=== PATIENT | female | born 1940 | race Caucasian/White ===

== ENCOUNTER 2023-06-18 17:59 | Inpatient (IN) | payer OTHER, SELFPAY ==
[2023-06-18 14:39] VITALS: BP 136/59
[2023-06-18 15:06] LABS: % Basophils 0.4 % (0-2); % Immature Granulocytes 0.4 % (0-0.5); % Lymphocytes 25.7 % (20.5-51.1); % Monocytes 13.3 % (1.7-9.3); % Neutrophils 60.2 % (42.2-75.2); Absolute Lymphocytes 2.1 10^3/uL (1.2-3.4); Absolute Monocytes 1.1 10^3/uL (0.1-0.6); Absolute Neutrophils 4.8 10^3/uL (1.4-6.5); Hematocrit 34.3 % (37.0-47.0); Hemoglobin 11.3 g/dL (12.0-16.0); Mean Corp Hgb Conc. 32.9 g/dL (33.0-37.0); Mean Corpuscular Hgb 27.6 pg (27.0-31.0); Mean Corpuscular Volume 83.9 fL (81.0-99.0); Mean Platelet Volume 10.2 fL (7.4-10.4); Nucleated Red Blood Cells % 0 %; Platelet Count 203 10^3/uL (130-400); Red Blood Cell Count 4.09 10^6/uL (4.20-5.40); Red Cell Dist. Width 15.5 % (11.5-14.5)
[2023-06-18 15:22] LABS: ALT (SGPT) 20 U/L (0-35); AST (SGOT) 25 U/L (14-36); Albumin 3.9 g/dl (3.5-5.0); Alkaline Phosphatase 61 U/L (38-126); Blood Urea Nitrogen 21 mg/dl (7-17); COVID-19 Antigen Negative (Negative); Carbon Dioxide 28 mmol/L (22-30); Chloride 102 mmol/L (98-107); Glucose 110 mg/dl (70-99); Potassium 3.9 mmol/L (3.5-5.1); Sodium 137 mmol/L (135-145); Total Bilirubin 0.6 mg/dl (0.2-1.3); Total Protein 6.4 g/dl (6.3-8.2)
[2023-06-18 15:36] LABS: Lactic Acid 1.5 mmol/L (0.7-2.0)
--- NOTE | 2023-06-18 17:06 | ED.GENMED ---
History of Present Illness
General
Chief Complaint: Weakness
Source: family and prison records
Time Seen by Provider: 06/18/23 16:52
Nursing documentation reviewed up to this point in time: agreed with
Travel History
Have you had any contact with someone who has COVID-19?: No
Do you have any symptoms of coronavirus? Fever > 100 degrees, chills, cough, shortness of breath, sore throat, loss of taste or smell, muscle aches, or headache?: No
History of Present Illness
History of Present Illness:
Patient to ED for eval of weakness, poor appetite, cough. According to son symptoms started yesterday. Not eating or drinking. Sent to ED for eval. +fever, no chills. No n/v/d.
Past History
Past History
ED Past Medical History: Arrthythmia (afib), CHF, HTN, Hypercholesterolemia, NIDDM, Hypothyroidism and Psychiatric (alzheimers)
ED Past Surgical History: Cardiac (CABG, Stents X 6,) and Gynecological (Hysterectomy)
Social History
Tobacco: Former smoker
Alcohol: Occasional
Personal:
Living: with family
Review of Systems
Review of Systems
Allergies reviewed?: Yes
All Other Systems: ROS reviewed and negative except as documented in HPI and ROS
Constitutional: Reports fever and fatigue
EENT: Reports runny nose
Respiratory: Reports cough
Cardiac: Reports no symptoms
ABD/GI: Reports anorexia
: Reports no symptoms
Musculoskeletal: Reports no symptoms
Neurological: Reports weakness
Psychiatric: Reports no symptoms
Phy Exam
General Physical Exam
General Presentation: mild distress
General age: appears stated age
General Skin: dry
General Habitus: elderly and frail
General Hydration: dry mucous membranes
Cardiovascular Exam
Cardiovascular Exam: regular rate/rhythm and no edema
Pulmonary Exam
Pulmonary Exam: no respiratory distress and chest non tender
Breath Sounds: Rhonchi: right lower
Gastrointestinal Exam
Gastrointestinal Exam: normal bowel sounds, non tender, soft, no organomegaly and no cva tenderness
Musculoskeletal Exam
Musculoskeletal Exam: full ROM and neuro vasc intact
Skin Exam
Skin Exam: normal color, warm/dry and no rash
Psychiatric Exam
Psychiatric Exam: normal mood/affect
Course
Orders/Labs/Results
Orders:
Orders
06/18/23 14:52
COVID-19 Antigen Urgent
Source: Nasal Swab
Complete Blood Count/With Diff Urgent
Comprehensive Metabolic Panel Urgent
Digoxin Urgent
Lactic Acid Q4H
Comment: ON ICE, CANCEL 2ND ORDER IF FIRST LACTIC ACID LEVEL <2
Blood Culture Q30M
ALANNA Source: Blood/Venous
Specimen Description:
Comment: FROM 2 SEPARATE SITES
INF RAPID [Influenza A+B Rapid Molecular] Urgent
ALANNA Source: Nasal Swab
Specimen Description:
06/18/23 17:03
0.9% Sodium Chloride 500 ml [Nss] 500 ml IV BOLUS
06/18/23 17:04
CR Chest - 2 Views Urgent
Comment:
Reason For Exam: weakness, cough
06/18/23 17:42
Admit/Transfer Patient As Directed
Co-Sign Provider:
Level of Care: Inpatient admission
Assign to:: Telemetry
Physician / Group: dion bullard
Diagnosis: influenza
Reason for Telemetry: Arrhythmia
Date to Stop Telemetry: 06/21/23
Time to Stop Telemetry: 11:00
Reason for Hospitalization: influenza
Expected length of stay greater than two midnights?: Yes
ELOS- Estimated Length of Stay in days: 3
I certify the patient meets the requirements for IP care: Yes
EKG [Electrocardiogram (*1)] Stat
Reason for Study: Atrial Fibrillation
06/18/23 17:44
Code Status As Directed
Resuscitation Status: Full Code
06/18/23 18:22
Blood Culture Q30M
ALANNA Source: Blood/Venous
Specimen Description:
Comment: FROM 2 SEPARATE SITES
06/18/23 19:13
0.9% Sodium Chloride 1000 ml [Nss] 1,000 ml IV 60 mls/hr
Atorvastatin [Lipitor] 40 mg PO QPM
Dextrose 50%-Water [Dextrose 50% Syringe] 12.5 grams IV [id number] PRN
Glucagon [GlucaGen] 1 mg IM PRN PRN
Rivaroxaban [Xarelto] 15 mg PO QPM
06/18/23 19:13
Activity As Directed
Activity Level: As Tolerated
Bedside Glucose Monitoring As Directed
Frequency: AC&HS
Comment: Change to q6h if pt on TPN, tube feeding or not eating
Vital Signs As Directed
Frequency: Per unit guidelines
Speech Therapy Eval & Treat Routine
06/18/23 19:21
Acetaminophen [Tylenol] 650 mg PO Q6HPRN PRN
06/18/23 19:26
Miconazole Nitrate [Desenex/Mitrazol/Zeasorb] 1 applic TOPICAL Q6H PRN
06/18/23 20:00
Magnesium Oxide 250 mg PO QPM
Miconazole Nitrate [Desenex/Mitrazol/Zeasorb] 1 applic TOPICAL BID
Multivitamin [Theragran] 1 tablet PO QPM
Oseltamivir Phosphate [Tamiflu] 30 mg PO DAILY
Sacubitril 24/Valsartan 26 [Entresto 24 mg/26 mg] 1 tab PO Q12
06/18/23 22:00
Mirtazapine [Remeron] 15 mg PO HS
06/19/23 Breakfast
2200 calorie (18 carb) Diabetic
At Your Request: Limited, Coagulating Drying Supervisor Required
Occupational Therapy Consult [Ot Eval And Treat] IN AM
Physical Therapy Consult [Pt Eval And Treat] IN AM
Activity Level: As Tolerated
06/19/23 07:00
Basic Metabolic Panel IN AM
Complete Blood Count/No Diff IN AM
Glycohemoglobin (HgbA1c) IN AM
Levothyroxine [Synthroid] 176 mcg PO SuSa@0700
06/19/23 07:30
Insulin Aspart Corrective Low [Novolog Flexpen-Low Resistance] See Protocol SC AC
06/19/23 08:00
Aripiprazole [Abilify] 4 mg PO DAILY
Cyanocobalamin [Vitamin B-12] 1,000 mcg PO DAILY
Docusate Sodium [Colace] 100 mg PO DAILY
Donepezil HCl [Aricept] 10 mg PO DAILY
ISOSORBIDE MONOnitrate ER [Imdur (Extended Release)] 30 mg PO DAILY
METFORMIN HCl [Glucophage] 500 mg PO BID@0800,1700
Metoprolol Xl [Toprol Xl] 100 mg PO DAILY
Sitagliptin Phosphate [Januvia] 50 mg PO DAILY
Vit C/Vit E/Lutein/Min/[place]-3 [Ocuvite Softgel] 1 cap PO DAILY
06/19/23 12:00
Digoxin [Lanoxin] 125 mcg PO NOON
06/20/23 06:00
Basic Metabolic Panel IN AM
Complete Blood Count/No Diff IN AM
06/21/23 06:00
Basic Metabolic Panel IN AM
Complete Blood Count/No Diff IN AM
06/21/23 08:00
Levothyroxine [Synthroid] 88 mcg PO MoTuWeThFr@0800
06/21/23 11:00
DC Protocol for Telemetry ONCE
06/22/23 06:00
Basic Metabolic Panel IN AM
Complete Blood Count/No Diff IN AM
06/23/23 06:00
Basic Metabolic Panel IN AM
Complete Blood Count/No Diff IN AM
Abnormal Lab Results
06/18/23
14:52
RBC 4.09 L 10^6/uL
(4.20-5.40)
Hgb 11.3 L g/dL
(12.0-16.0)
Hct 34.3 L %
(37.0-47.0)
MCHC 32.9 L g/dL
(33.0-37.0)
RDW 15.5 H %
(11.5-14.5)
Absolute Monos (auto) 1.1 H 10^3/uL
(0.1-0.6)
Monocytes % 13.3 H %
(1.7-9.3)
BUN 21 H mg/dl
(7-17)
Creatinine 1.6 H mg/dL
(0.6-1.0)
Glucose 110 H mg/dl
(70-99)
06/18/23 14:52
06/18/23 14:52
Vital Signs
Initial and Last Documented VS:
Initial Vital Signs
Temp Pulse Resp BP Pulse Ox
100.1 F 56 16 136/59 97
06/18/23 14:39 06/18/23 14:39 06/18/23 14:39 06/18/23 14:39 06/18/23 14:39
Last Documented Vital Signs
Temp Pulse Resp BP Pulse Ox
97.9 F 46 17 128/55 96
06/19/23 15:00 06/19/23 15:00 06/19/23 15:00 06/19/23 15:00 06/19/23 15:00
*Radiology
Radiology exam reviewed: radiology read reviewed
*Critical Care Note
Total Time (30-74mins, 75-104mins- exclusive of procedures): Not Applicable
ED Attending Note
-
Portions of this chart may have been created with voice recognition software.� Occasional wrong word or��sound alike� substitutions may have occurred due to the inherent limitations of voice recognition software.
Discharge Plan
Departure
Patient Disposition: Admit
Date of Disposition: 06/18/23
Time of Disposition: 17:12
Presentation/result/management discussed w/ accepting MD/DO: Hospitalist
Condition: Fair
Covid-19: Not Applicable
Discharge Problem:
Acute dehydration, Weakness, Influenza A
Interventions
Interventions:
*Risk Screen - Suicide Last Done: 06/18/23 20:15
*General Assessment Last Done: 06/18/23 14:39
*Neglect/Abuse Screening Last Done: 06/18/23 14:39
ED- Fall Risk Assessment Last Done: 06/18/23 18:13
*ED COVID-19 Vaccine History Last Done: 06/18/23 20:15
*Nursing Disposition Last Done: 06/18/23 19:25
ED- Cardiac Assessment Last Done: 06/18/23 18:13
ED- Neurological Assessment Last Done: 06/18/23 18:13
ED- Pulmonary Assessment Last Done: 06/18/23 18:13
Discharge Date and Time
Discharge Date/Time: 06/18/23 19:26
--- NOTE | 2023-06-18 17:14 | HPS.HSE ---
Addendum entered and electronically signed by Karina Ventura MD 06/19/23 11:21:
I saw and examined the patient.
The COAL TRIMMER MACHINE OPERATOR's note was reviewed and I agree with the note.
Comment:
HPI: 82-year-old with past medical history of A-fib, congestive heart failure, hypertension, hyperlipidemia, type 2 diabetes, hypothyroidism, Alzheimer's; presented from dementia unit with cough that started the day before.�
She also fell and hit her head.�She was noted to be hypotensive which prompted her to be brought to the the ER.�
Patient has severe dementia, hence unable to provide significant history.
She was tested positive for flu in ER and received NSS 500 cc.
A/P:
# Sepsis POA due to influenza
# Generalized weakness due to influenza
COVID-negative, CXR unrevealing
Check urine Cx, follow blood Cx
Flu A positive, start Tamiflu (renally dose x5 days)
PT OT eval
SPL eval
# Dehydration with Acute kidney injury, resolved
Continue to monitor SCr
# Alzheimer's disease
Continue FLOOR LAYER TILE Abilify, Aricept, Mirtazapine
# GERD
PPI continued
# Hyperlipidemia
Statin continued
# History of A-fib, likely permanent A fib
Cont FLOOR LAYER TILE Digoxin, level WNL
Cont FLOOR LAYER TILE Metoprolol
Cont FLOOR LAYER TILE Xarelto
# History of congestive heart failure, Not in acute exacerbation
# Essential hypertension
Cont to hold FLOOR LAYER TILE Lasix
Cont FLOOR LAYER TILE Imdur and Entresto
# Hypothyroidism
Levothyroxine continued
# Type 2 diabetes
Cont Januvia
DC further Metformin with CKD
Sliding scale
DVT prophylaxis-Xarelto
CODE STATUS-Full code
Original Note:
Family Physician
-
Family Physician: Jus Marie
Chief Complaint
-
cough
History of Present Illness
82-year-old with past medical history for A-fib, congestive heart failure, hypertension, hyperlipidemia, type 2 diabetes, hypothyroidism, Alzheimer's presented to us with cough, raspy voice since yesterday. Overnight she had a fall patient denied
hitting her head. This morning she had a temp of 99.5. Her cough was more wet. she had poor appetite and did not eat anything today. She was noted hypotensive which prompted her to come to the ER. Patient denies any headache dizzy or syncopal
episode. Patient denied chest pain, short of breath. Patient denied abdominal pain, nausea, vomiting, diarrhea. Patient denied dysuria hematuria.
Tested positive for flu in ER. Patient received normal saline 500 in ER. Admitting for further management
Medical History
Past Medical History
Past Medical History: Reports Other
Additional Past Medical History:
Atrial fibrillation
Congestive heart failure
Hypertension
Hyperlipidemia
Type 2 diabetes
Hypothyroidism
Alzheimer's disease
Past Surgical History: Reports Other
Additional Past Surgical History:
Coronary artery bypass graft
Cardiac stent
Hysterectomy
Social History
Tobacco: Former Smoker
Alcohol: None
Drug: None
Personal: Single
Living: Usp
Family History
Family History: Not pertinent
Allergies / Home Medications
Allergies reflects when Allergies were last updated in [facility].
Home Medications with original date entered in [facility]
Allergy/Medication List:
Allergies
Allergy/AdvReac Type Severity Reaction Status Date / Time
No Known Allergies Allergy Verified 06/18/23 14:39
Home Medications
acetaminophen 650 mg tablet,extended release 650 mg PO Q6H PRN mild pain 06/18/23
aripiprazole 2 mg tablet 4 mg PO DAILY 06/18/23
atorvastatin 40 mg tablet 40 mg PO QPM 06/18/23
cyanocobalamin (vitamin B-12) 1,000 mcg tablet 1,000 mcg PO DAILY 06/18/23
digoxin 125 mcg (0.125 mg) tablet 125 mcg PO DAILY 06/18/23
docusate sodium 100 mg capsule 100 mg PO DAILY 06/18/23
donepezil 10 mg tablet 10 mg PO DAILY 06/18/23
furosemide 20 mg tablet 20 mg PO DAILY 06/18/23
isosorbide mononitrate 30 mg tablet,extended release 24 hr 30 mg PO DAILY 06/18/23
levothyroxine 88 mcg tablet 88 mcg PO MOTUWETHFR 06/18/23
levothyroxine 88 mcg tablet 176 mcg PO SUSA 06/18/23
magnesium oxide 250 mg PO QPM 06/18/23
menthol 0.44 %-zinc oxide 20.6 % topical ointment (CalProtect) 1 applic topical BID 06/18/23
menthol 0.44 %-zinc oxide 20.6 % topical ointment (CalProtect) 1 applic topical QID PRN excoriation 06/18/23
metformin 500 mg tablet 500 mg PO BID@0800,1700 06/18/23
metoprolol succinate 100 mg tablet,extended release 24 hr 100 mg PO DAILY 06/18/23
mirtazapine 15 mg tablet 15 mg PO HS 06/18/23
multivitamin with minerals-folic 133.3 mcg-biotin 1,666.7 mcg capsule (Hair,Skin and Nails (folic acid-biotin)) 1 cap PO QPM 06/18/23
nystatin 100,000 unit/gram topical powder (Nystop) 1 applic topical BID 06/18/23
nystatin 100,000 unit/gram topical powder (Nystop) 1 applic topical Q6H PRN red rash 06/18/23
pantoprazole 40 mg tablet,delayed release 40 mg PO DAILY 06/18/23
rivaroxaban 15 mg tablet (Xarelto) 15 mg PO QPM 06/18/23
sacubitril 24 mg-valsartan 26 mg tablet (Entresto) 1 tab PO Q12H 06/18/23
sitagliptin phosphate 50 mg tablet (Januvia) 50 mg PO DAILY 06/18/23
vitamins A,C,I-rpjg-kthwoq 4,296 mcg-226 mg-90 mg capsule (PreserVision AREDS) 1 cap PO DAILY 06/18/23
Review of Systems
-
Constitutional: Reports Fever and Fatigue
EENT: Reports No Symptoms
Respiratory: Reports Cough
Cardiac: Reports No Symptoms
Abdomen/GI: Reports No Symptoms
: Reports No Symptoms
Musculoskeletal: Reports No Symptoms
Skin: Reports No Symptoms
Neurological: Reports No Symptoms
Endocrine: Reports No Symptoms
Hematologic/Lymphatic: Reports No Symptoms
Psych: Reports No Symptoms
Physical Exam
Vital Signs
Vital Signs
Temp Pulse Resp BP Pulse Ox
100.1 F 56 16 136/59 97
06/18/23 14:39 06/18/23 14:39 06/18/23 14:39 06/18/23 14:39 06/18/23 14:39
Physical Exam
General: Well Developed, Well Nourished and No Apparent Distress
HEENT: NormoCephalic, Moist mucous membranes and Atraumatic
Respiratory: Clear
Cardiac: S1/S2 and Regular Rhythm; No Murmur or Rub
GI: Soft, Non Tender, Non Distended and Normal Bowel Sounds; No Organomegaly
Rectal: Deferred by Provider
Musculoskeletal: No Clubbing, No Cyanosis and No Edema
Skin: No Rash
Neuro: AO x 3 and Nonfocal/grossly intact
Psych: Calm
Laboratory Results
-
06/18/23 14:52
06/18/23 14:52
Laboratory Results
Lactic Acid 1.5 mmol/L (0.7-2.0) 06/18/23 14:52
Total Bilirubin 0.6 mg/dl (0.2-1.3) 06/18/23 14:52
AST 25 U/L (14-36) 06/18/23 14:52
ALT 20 U/L (0-35) 06/18/23 14:52
Alkaline Phosphatase 61 U/L (38-126) 06/18/23 14:52
Data Reviewed
-
Lab Data: Labs Reviewed by me
Impression/Plan
-
# Generalized weakness likely from influenza
-COVID-negative
-chest x ray negative
-Tamiflu
-Physical therapy consulted
-Occupational Therapy consulted
-speech therapy consulted
# Dehydration from influenza
-Fluids continued
# Acute kidney injury likely from dehydration
-Creatinine 1.6
-Continue to monitor
# Alzheimer's disease
-Continue Abilify, Aricept
-Mirtazapine continued.
# GERD
-PPI continued
# Hyperlipidemia
-Statin continued
# History of A-fib
-Unclear if paroxysmal or permanent
-Will obtain EKG
-Digoxin continued
-Metoprolol continued
-Xarelto continued
-digoxin level in AM
# History of congestive heart failure
-Not in acute exacerbation
-Will hold Lasix
# Essential hypertension
-Blood pressure stable
-Imdur continued
-Entresto
# Hypothyroidism
-Levothyroxine continued
# Type 2 diabetes
-Metformin continued
-Sliding scale
-Carb controlled diet
-Januvia continued
# DVT prophylaxis
-Xarelto
# CODE STATUS
-Full code
[2023-06-18 18:09] VITALS: BMI 24.3
[2023-06-18] MEDS: NSS 500 IV (18:29)
[2023-06-18 19:33] VITALS: BMI 23.5
[2023-06-18 19:37] VITALS: BP 165/59
[2023-06-18 19:51] LABS: Digoxin 1.8 ng/ml (0.8-2.0)
[2023-06-18] MEDS: NSS 1000 IV (20:25)
[2023-06-18] MEDS: TAMIFLU 30 MG PO (20:25)
[2023-06-18] MEDS: REMERON 15 MG PO (20:26)
[2023-06-18] MEDS: DESENEX/MITRAZOL/ZEASORB 1 APPLIC TOPICAL (20:26)
[2023-06-18] MEDS: LIPITOR 40 MG PO (20:26)
[2023-06-18] MEDS: THERAGRAN 1 TABLET PO (20:26)
[2023-06-18] MEDS: XARELTO 15 MG PO (20:26)
[2023-06-18] MEDS: MAGNESIUM OXIDE 250 MG PO (20:26)
[2023-06-18] MEDS: ENTRESTO 24 MG/26 MG 1 TAB PO (20:29)
[2023-06-18 21:24] LABS: Glucose - Point of Care 119 mg/dl (70-99)
[2023-06-18 23:00] VITALS: BP 147/63
[2023-06-19] VITALS (8 sets, daily range): BP systolic 114–172; BP diastolic 49–75; PULSE 58; O2SAT 95; BMI 23.7
[2023-06-19] MEDS: SYNTHROID 176 MCG PO (06:27)
[2023-06-19 07:14] LABS: Hematocrit 33.1 % (37.0-47.0); Hemoglobin 10.8 g/dL (12.0-16.0); Mean Corp Hgb Conc. 32.6 g/dL (33.0-37.0); Mean Corpuscular Hgb 27.2 pg (27.0-31.0); Mean Corpuscular Volume 83.4 fL (81.0-99.0); Mean Platelet Volume 9.8 fL (7.4-10.4); Platelet Count 186 10^3/uL (130-400); Red Blood Cell Count 3.97 10^6/uL (4.20-5.40); Red Cell Dist. Width 15.5 % (11.5-14.5); White Blood Cell Count 10.9 10^3/uL (4.8-10.8)
[2023-06-19 07:39] LABS: Blood Urea Nitrogen 23 mg/dl (7-17); Calcium 8.6 mg/dl (8.4-10.2); Carbon Dioxide 24 mmol/L (22-30); Chloride 102 mmol/L (98-107); Estimated Creatinine Clearance 33 ml/min; Glucose 146 mg/dl (70-99); Potassium 3.7 mmol/L (3.5-5.1); Sodium 136 mmol/L (135-145); eGFR 45.19
[2023-06-19 07:56] LABS: Glucose - Point of Care 139 mg/dl (70-99)
[2023-06-19] MEDS: NOVOLOG FLEXPEN-LOW RESISTANCE SC ×2 (07:58→12:21)
[2023-06-19] MEDS: VITAMIN B-12 1000 MCG PO (08:34)
[2023-06-19] MEDS: ENTRESTO 24 MG/26 MG 1 TAB PO ×2 (08:34→19:59)
[2023-06-19] MEDS: ARICEPT 10 MG PO (08:34)
[2023-06-19] MEDS: JANUVIA 50 MG PO (08:34)
[2023-06-19] MEDS: TAMIFLU 30 MG PO (08:34)
[2023-06-19] MEDS: GLUCOPHAGE 500 MG PO (08:34)
[2023-06-19] MEDS: ABILIFY 4 MG PO (08:34)
[2023-06-19] MEDS: IMDUR (EXTENDED RELEASE) 30 MG PO (08:34)
[2023-06-19] MEDS: TOPROL XL 100 MG PO (08:34)
[2023-06-19] MEDS: COLACE 100 MG PO (08:34)
[2023-06-19] MEDS: OCUVITE SOFTGEL 1 CAP PO (08:34)
[2023-06-19] MEDS: DESENEX/MITRAZOL/ZEASORB 1 APPLIC TOPICAL ×2 (08:35→20:00)
[2023-06-19 08:44] LABS: Glycohemoglobin (HgbA1c) 6.9 % (4.0-5.6)
[2023-06-19] MEDS: TYLENOL 650 MG PO (10:33)
--- NOTE | 2023-06-19 11:05 | W.PN.HOSP.TC ---
Today's Communication/Plan
-
see A/P
Assessment / Plan
Assessment / Plan
HPI: 82-year-old with past medical history of A-fib, congestive heart failure, hypertension, hyperlipidemia, type 2 diabetes, hypothyroidism, Alzheimer's; presented from dementia unit with cough that started the day before.�
She also fell and hit her head.�She was noted to be hypotensive which prompted her to be brought to the the ER.�
Patient has severe dementia, hence unable to provide significant history.
She was tested positive for flu in ER and received NSS 500 cc.
A/P:
# Sepsis POA due to influenza
# Generalized weakness due to influenza
COVID-negative, CXR unrevealing
Check urine Cx, follow blood Cx
Flu A positive, start Tamiflu (renally dose x5 days)
PT OT eval
SPL recc pureed diet
# Dehydration with Acute kidney injury, resolved
s/p IVF
Creatinine 1.6 -> 1.2 (baseline SCr 1.3 from 03/2023)
Continue to monitor SCr
# Alzheimer's disease
Continue SHIPYARD PAINTER Abilify, Aricept, Mirtazapine
# GERD
PPI continued
# Hyperlipidemia
Statin continued
# History of A-fib, likely permanent A fib
Cont SHIPYARD PAINTER Digoxin, level WNL
Cont SHIPYARD PAINTER Metoprolol
Cont SHIPYARD PAINTER Xarelto
# History of congestive heart failure, Not in acute exacerbation
# Essential hypertension
Cont to hold SHIPYARD PAINTER Lasix
Blood pressure stable, Cont SHIPYARD PAINTER Imdur and Entresto
# Hypothyroidism
Levothyroxine continued
# Type 2 diabetes
Cont Januvia
DC further Metformin with CKD
Sliding scale
DVT prophylaxis-Xarelto
CODE STATUS-Full code
DW RN
DW son in person
Anticipated Discharge: Within 24 hours
Subjective/Interval History
-
Date of Service: June 19, 2023
Objective Data
-
Labs:
Laboratory Results
06/19/23
07:00
WBC 10.9 H
Hgb 10.8 L
Hct 33.1 L
Plt Count 186
Sodium 136
Potassium 3.7
Chloride 102
Carbon Dioxide 24
BUN 23 H
Creatinine 1.2 H
Glucose 146 H
Calcium 8.6
Vital Signs:
Vital Signs
Temp Pulse Resp BP Pulse Ox
38.1 C H 69 18 156/63 92
06/19/23 07:00 06/19/23 07:00 06/19/23 07:00 06/19/23 07:00 06/19/23 10:01
I&O
06/18/23 06/19/23 06/20/23
06:59 06:59 06:59
Intake Total 1080 / 1080
Balance 1080 / 1080
Review of Systems
-
Unable to obtain full review of systems at this time due to: Dementia
Physical Exam
-
General: Well Developed, Well Nourished, No Apparent Distress and Comfortable; Negative Respiratory Distress
HEENT: Normocephalic, Atraumatic, Nose Appears Normal and Ears Appear Normal; Negative Oxygen
Respiratory: Clear to Auscultation and Non Labored Respirations; Negative Accessory Resp Muscle Use
Cardiac: Regular Rhythm and S1/S2
GI: Soft, Nontender, Nondistended and Normal Bowel Sounds
Skin: Warm and Dry
Neuro: Awake
Psych: Calm and Apparent Dementia
Data Reviewed
-
Diagnostic Radiology: Image personally visualized and interpreted and Report Reviewed by me
Labs: Labs Reviewed by me
[2023-06-19 12:20] LABS: Urine Albumin Trace (Neg - Trace); Urine Bilirubin Negative (Negative); Urine Character Clear (Clear); Urine Color Yellow; Urine Glucose Negative (Negative); Urine Ketone Negative (Negative); Urine Leukocyte Negative (Negative); Urine Nitrite Negative (Negative); Urine Occult Blood Negative (Negative); Urine Specific Gravity 1.015 (<1.030); Urine Urobilinogen Negative (Neg - 1+)
[2023-06-19 12:22] LABS: Glucose - Point of Care 167 mg/dl (70-99)
[2023-06-19] MEDS: LANOXIN PO (12:41)
--- NOTE | 2023-06-19 12:57 | PTOTSP ---
SPEECH THERAPY SWALLOW EVALUATION:
Clinical signs of oropharyngeal dysphagia, likely chronic related to Alzheimer's, and acutely exacerbated by influenza diagnosis and related increased confusion/lethargy. Patient at high risk for aspiration and related complications due to
confusion/lethargy. Recommend IDDSI Level 4 Puree diet and thin liquids. Medications crushed in puree. Aspiration precautions includin:1 assist with meals; only feed when patient awake/alert; small single sips and bites; slow rate of intake;
upright positioning. Speech therapy to follow, assess diet tolerance and modify as appropriate, provide continued education regarding aspiration risks and precautions.
RECOMMEND:
1) IDDSI Level 4 Puree diet and thin liquids
2) Medications crushed in puree
3) Aspiration precautions includin:1 assist with meals; only feed when patient awake/alert; small single sips and bites; slow rate of intake; upright positioning
4) Speech therapy to follow, assess diet tolerance and modify as appropriate, provide continued education regarding aspiration risks and precautions
--- NOTE | 2023-06-19 13:19 | CM ---
CM attempted to reach patient via phone with out sha. CM will try again to review discharge planning needs.
[2023-06-19] MEDS: NSS 1000 IV (13:40)
[2023-06-19] MEDS: NOVOLOG FLEXPEN-LOW RESISTANCE 1 UNITS SC ×2 (13:46→17:08)
--- NOTE | 2023-06-19 16:02 | CM ---
Patient son spoke with CM via phone. Patient lives in the assisted living section of [facility] and she has a walker. Patient son indicated that patient was at [facility] in April and was walking 'gingerly' at discharge back to the
facility but did not get any PT/OT at that time. Patient now using her walker and family is uncertain about her needs at discharge. Son would like to talk to physician. CM reviewed recommendation from PT/OT at this time is for SNF level of care.
Patient son indicated that he would follow and look into options at SNF level if needed. CM will continue to follow for discharge planning needs.
Plan; SNF vs return to personal care with PT/OT
[2023-06-19 17:06] LABS: Glucose - Point of Care 170 mg/dl (70-99)
[2023-06-19] MEDS: XARELTO 15 MG PO (17:28)
[2023-06-19] MEDS: THERAGRAN 1 TABLET PO (17:28)
[2023-06-19] MEDS: LIPITOR 40 MG PO (17:28)
[2023-06-19] MEDS: MAGNESIUM OXIDE 250 MG PO (17:28)
[2023-06-19 21:12] LABS: Glucose - Point of Care 170 mg/dl (70-99)
[2023-06-19] MEDS: REMERON 15 MG PO (21:49)
[2023-06-20 03:00] VITALS: BP 183/79
[2023-06-20] MEDS: SYNTHROID 176 MCG PO (06:53)
[2023-06-20 07:00] VITALS: BP 172/71
[2023-06-20 07:10] LABS: Hematocrit 34.5 % (37.0-47.0); Hemoglobin 11.1 g/dL (12.0-16.0); Mean Corp Hgb Conc. 32.2 g/dL (33.0-37.0); Mean Corpuscular Hgb 27.6 pg (27.0-31.0); Mean Corpuscular Volume 85.8 fL (81.0-99.0); Mean Platelet Volume 10.6 fL (7.4-10.4); Platelet Count 180 10^3/uL (130-400); Red Blood Cell Count 4.02 10^6/uL (4.20-5.40); Red Cell Dist. Width 15.7 % (11.5-14.5); White Blood Cell Count 10.9 10^3/uL (4.8-10.8)
[2023-06-20] MEDS: TOPROL XL 100 MG PO (07:34)
[2023-06-20] MEDS: COLACE 100 MG PO (07:34)
[2023-06-20] MEDS: ARICEPT 10 MG PO (07:34)
[2023-06-20] MEDS: TAMIFLU 30 MG PO (07:34)
[2023-06-20] MEDS: JANUVIA 50 MG PO (07:34)
[2023-06-20] MEDS: VITAMIN B-12 1000 MCG PO (07:35)
[2023-06-20] MEDS: OCUVITE SOFTGEL 1 CAP PO (07:35)
[2023-06-20] MEDS: ABILIFY 4 MG PO (07:35)
[2023-06-20] MEDS: IMDUR (EXTENDED RELEASE) 30 MG PO (07:35)
[2023-06-20] MEDS: ENTRESTO 24 MG/26 MG 1 TAB PO ×2 (07:35→22:36)
[2023-06-20] MEDS: DESENEX/MITRAZOL/ZEASORB 1 APPLIC TOPICAL ×2 (07:35→22:39)
[2023-06-20 07:37] LABS: Blood Urea Nitrogen 27 mg/dl (7-17); Calcium 8.4 mg/dl (8.4-10.2); Carbon Dioxide 29 mmol/L (22-30); Chloride 103 mmol/L (98-107); Estimated Creatinine Clearance 33 ml/min; Glucose 138 mg/dl (70-99); Potassium 3.7 mmol/L (3.5-5.1); Sodium 135 mmol/L (135-145); eGFR 45.19
[2023-06-20 07:40] LABS: Glucose - Point of Care 136 mg/dl (70-99)
[2023-06-20] MEDS: NOVOLOG FLEXPEN-LOW RESISTANCE SC ×2 (07:40→17:14)
[2023-06-20 11:00] VITALS: BP 143/70
[2023-06-20 11:44] LABS: Glucose - Point of Care 179 mg/dl (70-99)
[2023-06-20] MEDS: LANOXIN PO (12:12)
--- NOTE | 2023-06-20 12:28 | W.PN.HOSP.TC ---
Today's Communication/Plan
-
see A/P
Assessment / Plan
Assessment / Plan
HPI: 82-year-old with past medical history of A-fib, congestive heart failure, hypertension, hyperlipidemia, type 2 diabetes, hypothyroidism, Alzheimer's; presented from dementia unit with cough that started the day before.�
She also fell and hit her head.�She was noted to be hypotensive which prompted her to be brought to the the ER.�
Patient has severe dementia, hence unable to provide significant history.
She was tested positive for flu in ER and received NSS 500 cc.
A/P:
# Sepsis POA due to influenza
# Generalized weakness due to influenza
COVID-negative, CXR unrevealing
UA clean, blood Cx neg
Flu A positive, started Tamiflu (renally dose x5 days)
PT OT recc SNF
SPL recc pureed diet
# Dehydration with Acute kidney injury, resolved
s/p IVF
Creatinine 1.6 -> 1.2 (baseline SCr 1.3 from 03/2023)
Continue to monitor SCr
# Alzheimer's disease
Continue ARTIFICIAL BREAST FABRICATOR Abilify, Aricept, Mirtazapine
# GERD
PPI continued
# Hyperlipidemia
Statin continued
# History of A-fib, likely permanent A fib
Cont ARTIFICIAL BREAST FABRICATOR Digoxin, level WNL
Cont ARTIFICIAL BREAST FABRICATOR Metoprolol
Cont ARTIFICIAL BREAST FABRICATOR Xarelto
# History of congestive heart failure, Not in acute exacerbation
# Essential hypertension
Cont to hold ARTIFICIAL BREAST FABRICATOR Lasix
Blood pressure stable, Cont ARTIFICIAL BREAST FABRICATOR Imdur and Entresto
# Hypothyroidism
Levothyroxine continued
# Type 2 diabetes
Cont Januvia
hold ARTIFICIAL BREAST FABRICATOR Metformin with CKD
Sliding scale
DVT prophylaxis-Xarelto
CODE STATUS-Full code
DW RN
DW son and DIL on the phone. Family have not decided on dispo plan yet (whether discharge back to SNF vs previous home setting at dementia unit)
Anticipated Discharge: Within 24 hours
Subjective/Interval History
-
Date of Service: June 20, 2023
Objective Data
-
Labs:
Laboratory Results
06/20/23
06:06
WBC 10.9 H
Hgb 11.1 L
Hct 34.5 L
Plt Count 180
Sodium 135
Potassium 3.7
Chloride 103
Carbon Dioxide 29
BUN 27 H
Creatinine 1.2 H
Glucose 138 H
Calcium 8.4
Vital Signs:
Vital Signs
Temp Pulse Resp BP Pulse Ox
37.2 C 48 18 143/70 93
06/20/23 11:00 06/20/23 12:12 06/20/23 11:00 06/20/23 11:00 06/20/23 11:00
I&O
06/19/23 06/20/23 06/21/23
06:59 06:59 06:59
Intake Total 1080 / 1080 1080 / 1080
Balance 1080 / 1080 1080 / 1080
Review of Systems
-
Unable to obtain full review of systems at this time due to: Dementia
Physical Exam
-
General: Well Developed, Well Nourished, No Apparent Distress and Comfortable; Negative Respiratory Distress
HEENT: Normocephalic, Atraumatic, Nose Appears Normal and Ears Appear Normal; Negative Oxygen
Respiratory: Clear to Auscultation and Non Labored Respirations; Negative Accessory Resp Muscle Use
Cardiac: Regular Rhythm and S1/S2
GI: Soft, Nontender, Nondistended and Normal Bowel Sounds
Skin: Warm and Dry
Neuro: Awake
Psych: Calm and Apparent Dementia
Data Reviewed
-
Diagnostic Radiology: Image personally visualized and interpreted and Report Reviewed by me
Labs: Labs Reviewed by me
--- NOTE | 2023-06-20 12:47 | CM ---
CM spoke with patient son, he identified the following as the families list of SNF options; 1.[facility], 2.[facility], 3.[facility]. Patient will need [employer] auth, Referrals sent to SNF options above as therapy is recommending SNF. CM will
continue to follow for discharge planning needs.
Plan: SNF; patient will need [employer] auth
[2023-06-20] MEDS: NOVOLOG FLEXPEN-LOW RESISTANCE 1 UNITS SC (13:01)
[2023-06-20 15:00] VITALS: BP 149/98
[2023-06-20 17:12] LABS: Glucose - Point of Care 112 mg/dl (70-99)
[2023-06-20] MEDS: MAGNESIUM OXIDE 250 MG PO (17:26)
[2023-06-20] MEDS: THERAGRAN 1 TABLET PO (17:27)
[2023-06-20] MEDS: LIPITOR 40 MG PO (17:27)
[2023-06-20] MEDS: XARELTO 15 MG PO (17:27)
[2023-06-20 19:33] VITALS: BP 166/72
[2023-06-20 21:40] LABS: Glucose - Point of Care 127 mg/dl (70-99)
[2023-06-20] MEDS: REMERON 15 MG PO (22:37)
[2023-06-20 23:25] VITALS: BP 158/62
[2023-06-21] VITALS (9 sets, daily range): BP systolic 143–184; BP diastolic 62–78; PULSE 59; O2SAT 94; BMI 23.9
[2023-06-21 06:42] LABS: Hematocrit 32.5 % (37.0-47.0); Hemoglobin 10.4 g/dL (12.0-16.0); Mean Corpuscular Hgb 27.2 pg (27.0-31.0); Mean Corpuscular Volume 84.9 fL (81.0-99.0); Mean Platelet Volume 10.7 fL (7.4-10.4); Platelet Count 170 10^3/uL (130-400); Red Blood Cell Count 3.83 10^6/uL (4.20-5.40); Red Cell Dist. Width 15.5 % (11.5-14.5); White Blood Cell Count 6.1 10^3/uL (4.8-10.8)
[2023-06-21 06:53] LABS: Blood Urea Nitrogen 24 mg/dl (7-17); Calcium 8.6 mg/dl (8.4-10.2); Carbon Dioxide 29 mmol/L (22-30); Chloride 101 mmol/L (98-107); Estimated Creatinine Clearance 35 ml/min; Glucose 133 mg/dl (70-99); Potassium 3.7 mmol/L (3.5-5.1); Sodium 135 mmol/L (135-145); eGFR 50.17
[2023-06-21] MEDS: TOPROL XL PO (08:00)
--- NOTE | 2023-06-21 08:00 | PTCARENOTE ---
Patient's HR 38, Toprol XL 100mg held this am due to bradycardia overnight and this am. Physician made aware.
[2023-06-21 08:33] LABS: Glucose - Point of Care 115 mg/dl (70-99)
[2023-06-21] MEDS: NOVOLOG FLEXPEN-LOW RESISTANCE SC ×2 (08:39→17:07)
[2023-06-21] MEDS: ENTRESTO 24 MG/26 MG 1 TAB PO ×2 (09:02→20:13)
[2023-06-21] MEDS: VITAMIN B-12 1000 MCG PO (09:02)
[2023-06-21] MEDS: ABILIFY 4 MG PO (09:02)
[2023-06-21] MEDS: OCUVITE SOFTGEL 1 CAP PO (09:02)
[2023-06-21] MEDS: JANUVIA 50 MG PO (09:02)
[2023-06-21] MEDS: IMDUR (EXTENDED RELEASE) 30 MG PO (09:02)
[2023-06-21] MEDS: ARICEPT 10 MG PO (09:02)
[2023-06-21] MEDS: TAMIFLU 30 MG PO ×2 (09:03→20:13)
[2023-06-21] MEDS: COLACE 100 MG PO (09:03)
[2023-06-21] MEDS: SYNTHROID 88 MCG PO (09:06)
[2023-06-21] MEDS: DESENEX/MITRAZOL/ZEASORB 1 APPLIC TOPICAL ×2 (09:06→20:13)
[2023-06-21 12:07] LABS: Glucose - Point of Care 160 mg/dl (70-99)
--- NOTE | 2023-06-21 13:10 | CM ---
Addendum entered by Munira Vargas 06/21/23 14:24:
Spoke with Mcihelle at [facility] - not in Care Port
Faxed clinicals to Michelle at [phone]
If accepted - will need auth
Original Note:
Chart reviewed.
Referrals sent to [facility], [facility] and [facility]
Arianne Carvalho and [facility] - out of network
No response from [facility] in care port
Called [facility] and with call back number to review chart/check bed availability
CM will follow
[2023-06-21] MEDS: LANOXIN 125 MCG PO (13:13)
[2023-06-21] MEDS: NOVOLOG FLEXPEN-LOW RESISTANCE 1 UNITS SC (13:14)
--- NOTE | 2023-06-21 14:00 | W.PN.HOSP.TC ---
Today's Communication/Plan
-
neuro consult for further recs
ct head
tamiflu
Assessment / Plan
Assessment / Plan
HPI: 82-year-old with past medical history of A-fib, congestive heart failure, hypertension, hyperlipidemia, type 2 diabetes, hypothyroidism, Alzheimer's; presented from dementia unit with cough that started the day before.�
She also fell and hit her head.�She was noted to be hypotensive which prompted her to be brought to the the ER.�
Patient has severe dementia, hence unable to provide significant history.
She was tested positive for flu in ER and received NSS 500 cc.
A/P:
# Sepsis POA due to influenza
# Generalized weakness due to influenza
COVID-negative, CXR unrevealing
UA clean, blood Cx neg
Flu A positive, started Tamiflu (renally dose x5 days)
PT OT recc SNF
SPL recc pureed diet
# Dehydration with Acute kidney injury, resolved
s/p IVF
Creatinine 1.6 -> 1.2 (baseline SCr 1.3 from 03/2023)
Continue to monitor SCr
# Alzheimer's disease
Continue MACHINE II ENGRAVER Abilify, Aricept, Mirtazapine
# Left visual field cut
#No left-sided peripheral vision
� Neurology consulted
� Repeat CT head
� Follow-up neurology for further recommendations including MRI
# GERD
PPI continued
# Hyperlipidemia
Statin continued
# History of A-fib, likely permanent A fib
Cont MACHINE II ENGRAVER Digoxin, level WNL
Cont MACHINE II ENGRAVER Metoprolol
Cont MACHINE II ENGRAVER Xarelto
# History of congestive heart failure, Not in acute exacerbation
# Essential hypertension
Cont to hold MACHINE II ENGRAVER Lasix, can resume tomorrow if stable
Blood pressure stable, Cont MACHINE II ENGRAVER Imdur and Entresto
# Hypothyroidism
Levothyroxine continued
# Type 2 diabetes
Cont Januvia
hold MACHINE II ENGRAVER Metformin with CKD
Sliding scale
DVT prophylaxis-Xarelto
CODE STATUS-Full code
DW RN
DW son and DIL on the phone. Family have not decided on dispo plan yet (whether discharge back to SNF vs previous home setting at dementia unit)
Total time spent on today's encounter was 55 minutes which included time spent in counseling the patient/family regarding diagnosis and treatment plan as listed above, goals of care, and symptom management. Case was discussed with nursing staff,
specialists, and care coordinators/case management. All labs and imaging personally reviewed by me. Remainder the time spent in detailed review of previous records, lab data, imaging, and other medical provider documentation.
Anticipated Discharge: Today
Subjective/Interval History
-
Date of Service: June 21, 2023
No acute vents overnight, worked with physical therapy and had shown some left inattention as well as left visual field cut. Perseveratively combed hair on the right side only, runs into obstacles on the left side. Has no peripheral vision on left
side
Objective Data
-
Labs:
Laboratory Results
06/21/23
05:51
WBC 6.1
Hgb 10.4 L
Hct 32.5 L
Plt Count 170
Sodium 135
Potassium 3.7
Chloride 101
Carbon Dioxide 29
BUN 24 H
Creatinine 1.1 H
Glucose 133 H
Calcium 8.6
Vital Signs:
Vital Signs
Temp Pulse Resp BP Pulse Ox
98.1 F 61 17 146/66 98
06/21/23 11:00 06/21/23 13:13 06/21/23 11:00 06/21/23 11:00 06/21/23 11:00
I&O
06/20/23 06/21/23 06/22/23
06:59 06:59 06:59
Intake Total 1080 / 1080 960 / 960
Balance 1080 / 1080 960 / 960
Review of Systems
-
Unable to obtain full review of systems at this time due to: Dementia
History Source: Patient
Data Reviewed
-
CT Scan: Image personally visualized and interpreted
Labs: Labs Reviewed by me
--- NOTE | 2023-06-21 15:45 | CON.NEURO ---
Consultation
Order
CC: fatigue
HPI: This is an 82-year-old woman who presented to [facility] on June 18, 2023 with hypotension and Flu A. Neurology consultation was requested for evaluation and management of left visual deficits.
Ms. Smart reports generalized weakness. She denied new visual, focal motor or sensory deficits.
VS: T max-38.1 C, BP max: 183/79
PDMP: no Rxed meds
Admission labs: Glucose�110, creatinine 1.6, normal lactic acid, ua, neg SARS-COv-2
CT head-atrophy, no acute infarcts
PMH: A-fib on Xarelto, CAD, HTN, DLP, CHF, hypothyroidism, advanced Alzheimer's disease, vit B12 deficiency
PSH: CABG, EDAWRD
SH: Former Smoker
FH: Not pertinent
All:NKDA
ROS: Positive for fatigue
HENT: Positive for hearing impairment
Eyes: Negative. Negative for photophobia, pain and visual disturbance.
Respiratory: Negative for cough, choking and shortness of breath.
Cardiovascular: Negative for chest pain, palpitations and leg swelling.
Gastrointestinal: Positive for poor appetite
Endocrine: Negative. Negative for cold intolerance.
Genitourinary: Negative for dysuria, flank pain and urgency.
Musculoskeletal: Negative for back pain, gait problem, neck pain and neck stiffness.
Skin: Negative for rash.
Allergic/Immunologic: Negative. Negative for immunocompromised state.
Neurological: Positive for chronic confusion
General: Well developed. In no acute distress.
Cardio: Regular rate and rhythm without murmur. Extremities are without cyanosis or edema.
Neuro:
Mental Status: Alert, oriented to name, '2023', ' en', . Impaired attention. Increased processing time. Attends to both sides.
Cranial Nerves: . Pupils are equally round and reactive to light. EOMs full. BTT B/L. No ptosis. No nystagmus. V1-V3 intact to light touch and pinprick bilaterally, symmetric. Face symmetric. Poor hearing AU. The palate elevated well. SCMs
and traps 5/5. Tongue midline. No dysarthria.
Motor: Normal bulk and tone. No pronator or arm drift. Strength 5/5 throughout. No clonus.
Reflexes: positive for grasp BL
Sensory: limited due to poor attention
Coordination: No dysmetria or tremor.
Gait: deferred
Assessment and Plan:
I. Transient clinical hemineglect. 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 Differential diagnosis included R MCA infarct/TIA
II. Multifactorial encephalopathy (neurodegenerative, metabolic, infectious)
III. Alzheimer's disease with behavioral manifestations
IV. A-Fib
-fall and aspiration precautions;
-Brain MRi wo chelsea
-Continue Xarelto
-Will follow
I personally reviewed all radiology and labs along with past medical records pertinent to current medical problems.
Thank you for allowing us to participate in the care of this patient. We will continue to follow. Please do not hesitate to contact us with any questions or concerns.
Subjective/Objective
Subjective Data
Date of Service: June 21, 2023
Objective Data
Vital Signs
Temp Pulse Resp BP Pulse Ox
36.7 C 61 17 146/66 98
06/21/23 11:00 06/21/23 13:13 06/21/23 11:00 06/21/23 11:00 06/21/23 11:00
Lab Results
06/21/23 05:51
06/21/23 05:51
Sodium 135 mmol/L (135-145) 06/21/23 05:51
Potassium 3.7 mmol/L (3.5-5.1) 06/21/23 05:51
BUN 24 mg/dl (7-17) H 06/21/23 05:51
Glucose 133 mg/dl (70-99) H 06/21/23 05:51
Calcium 8.6 mg/dl (8.4-10.2) 06/21/23 05:51
Patient Allergies
No Known Allergies Allergy (Verified 06/18/23 14:39)
Modified Mishel Score (MRS)
-
MRS Score:
Medications
-
Active Medications
Generic Name Dose Route Start Last Admin
Trade Name Freq PRN Reason Stop Dose Admin
Acetaminophen 650 mg 06/18/23 19:21 06/19/23 10:33
Acetaminophen 325 Mg Tablet PO 07/16/23 19:20 650 mg
Q6HPRN PRN Administration
mild pain
Aripiprazole 4 mg 06/19/23 08:00 06/21/23 09:02
Aripiprazole 2 Mg Tablet PO 07/17/23 07:59 4 mg
DAILY ORI Administration
Atorvastatin Calcium 40 mg 06/18/23 19:13 06/20/23 17:27
Atorvastatin (Lipitor) 40 Mg Tablet PO 07/16/23 19:12 40 mg
QPM ORI Administration
Cyanocobalamin 1,000 mcg 06/19/23 08:00 06/21/23 09:02
Cyanocobalamin 1,000 Mcg Tablet PO 07/17/23 07:59 1,000 mcg
DAILY ORI Administration
Dextrose 12.5 grams 06/18/23 19:13
Dextrose 50% (0.5 Grams/Ml) 50 Ml Syringe IV 07/16/23 19:12
[id number] PRN
hypoglycemia
Protocol
Digoxin 125 mcg 06/19/23 12:00 06/21/23 13:13
Digoxin 125 Mcg Tablet PO 07/17/23 11:59 125 mcg
NOON ORI Administration
Docusate Sodium 100 mg 06/19/23 08:00 06/21/23 09:03
Docusate Sodium 100 Mg Capsule PO 07/17/23 07:59 100 mg
DAILY ORI Administration
Donepezil HCl 10 mg 06/19/23 08:00 06/21/23 09:02
Donepezil Hcl 10 Mg Tablet PO 07/17/23 07:59 10 mg
DAILY ORI Administration
Glucagon 1 mg 06/18/23 19:13
Glucagon 1 Mg Vial IM 07/16/23 19:12
PRN PRN
hypoglycemia
Protocol
Insulin Aspart 0 units 06/19/23 07:30 06/21/23 13:14
Insulin Aspart Low Resistance 300 Units/3 Ml Pen.Injctr SC 07/17/23 07:29 1 units
AC ORI Administration
Protocol
Isosorbide Mononitrate 30 mg 06/19/23 08:00 06/21/23 09:02
Isosorbide Mononitrate 30 Mg Extended Release Tablet PO 07/17/23 07:59 30 mg
DAILY ORI Administration
Levothyroxine Sodium 88 mcg 06/21/23 08:00 06/21/23 09:06
Levothyroxine 88 Mcg Tablet PO 07/19/23 07:59 88 mcg
MoTuWeThFr@0800 ORI Administration
Levothyroxine Sodium 176 mcg 06/19/23 07:00 06/20/23 06:53
Levothyroxine 88 Mcg Tablet PO 07/17/23 06:59 176 mcg
SuSa@0700 ORI Administration
Magnesium Oxide 250 mg 06/18/23 20:00 06/20/23 17:26
Magnesium Oxide 500 Mg Tablet PO 07/16/23 19:59 250 mg
QPM ORI Administration
Metoprolol Succinate 50 mg 06/22/23 08:00
Metoprolol 50 Mg Extended Release Tablet PO 07/20/23 07:59
DAILY ORI
Miconazole Nitrate 1 applic 06/18/23 19:26
Miconazole Powder Bottle TOPICAL 07/16/23 19:25
Q6H PRN
red rash
Miconazole Nitrate 1 applic 06/18/23 20:00 06/21/23 09:06
Miconazole Powder Bottle TOPICAL 07/16/23 19:59 1 applic
BID ORI Administration
Mirtazapine 15 mg 06/18/23 22:00 06/20/23 22:37
Mirtazapine 15 Mg Regular Release Tablet PO 07/16/23 21:59 15 mg
HS ORI Administration
Multivitamins Therapeutic 1 tablet 06/18/23 20:00 06/20/23 17:27
Multivitamin Tablet PO 07/16/23 19:59 1 tablet
QPM ORI Administration
Oseltamivir Phosphate 30 mg 06/21/23 20:00
Oseltamivir (Tamiflu) 30 Mg Capsule PO 06/23/23 20:01
BID ORI
Rivaroxaban 15 mg 06/18/23 19:13 06/20/23 17:27
Rivaroxaban 15 Mg Tablet PO 07/16/23 19:12 15 mg
QPM ORI Administration
Sacubitril/Valsartan 1 tab 06/18/23 20:00 06/21/23 09:02
Sacubitril 24 Mg/Valsartan 26 Mg (Entresto) Tab PO 07/16/23 19:59 1 tab
Q12 ORI Administration
Sitagliptin Phosphate 50 mg 06/19/23 08:00 06/21/23 09:02
Sitagliptin (Januvia) 50 Mg Tablet PO 07/17/23 07:59 50 mg
DAILY ORI Administration
Sodium Chloride 0 flush 06/18/23 20:00
Sodium Chloride 0.9% (Flush) Syringe IV 07/16/23 19:59
PER PROTOCOL ORI
Vitamin C/Vitamin E 1 cap 06/19/23 08:00 06/21/23 09:02
Vit C/Vit E/Lutein/Min/Crescent-3 (Ocuvite) Capsule PO 07/17/23 07:59 1 cap
DAILY ORI Administration
Home Medications
Medication Instructions Recorded
acetaminophen 650 mg 650 mg PO Q6H PRN mild pain 06/18/23
tablet,extended release
aripiprazole 2 mg tablet 4 mg PO DAILY Mental Health/Anxiety 06/18/23
atorvastatin 40 mg tablet 40 mg PO QPM High Cholesterol 06/18/23
cyanocobalamin (vitamin B-12) 1,000 mcg PO DAILY Supplement 06/18/23
1,000 mcg tablet
digoxin 125 mcg (0.125 mg) tablet 125 mcg PO DAILY Heart Failure 06/18/23
docusate sodium 100 mg capsule 100 mg PO DAILY Constipation 06/18/23
donepezil 10 mg tablet 10 mg PO DAILY Neurological 06/18/23
Condition
furosemide 20 mg tablet 20 mg PO DAILY Fluid 06/18/23
Retention/Swelling
isosorbide mononitrate 30 mg 30 mg PO DAILY Blood Pressure 06/18/23
tablet,extended release 24 hr
levothyroxine 88 mcg tablet 88 mcg PO MOTUWETHFR Thyroid 06/18/23
levothyroxine 88 mcg tablet 176 mcg PO SUSA Thyroid 06/18/23
magnesium oxide 250 mg PO QPM Supplement 06/18/23
menthol 0.44 %-zinc oxide 20.6 % 1 applic topical BID Skin Issues 06/18/23
topical ointment (CalProtect)
menthol 0.44 %-zinc oxide 20.6 % 1 applic topical QID PRN 06/18/23
topical ointment (CalProtect) excoriation
metformin 500 mg tablet 500 mg PO BID@0800,1700 Diabetes 06/18/23
metoprolol succinate 100 mg 100 mg PO DAILY Blood Pressure 06/18/23
tablet,extended release 24 hr
mirtazapine 15 mg tablet 15 mg PO HS Mental Health/Anxiety 06/18/23
multivitamin with minerals-folic 1 cap PO QPM Supplement 06/18/23
133.3 mcg-biotin 1,666.7 mcg
capsule (Hair,Skin and Nails
(folic acid-biotin))
nystatin 100,000 unit/gram topical 1 applic topical BID RASH 06/18/23
powder (Nystop)
nystatin 100,000 unit/gram topical 1 applic topical Q6H PRN red rash 06/18/23
powder (Nystop)
pantoprazole 40 mg tablet,delayed 40 mg PO DAILY Gastrointestinal 06/18/23
release Issue
rivaroxaban 15 mg tablet (Xarelto) 15 mg PO QPM Blood Clot 06/18/23
Prevention/Tx
sacubitril 24 mg-valsartan 26 mg 1 tab PO Q12H Heart Failure 06/18/23
tablet (Entresto)
sitagliptin phosphate 50 mg tablet 50 mg PO DAILY Diabetes 06/18/23
(Januvia)
vitamins A,C,T-rhga-ltghhq 4,296 1 cap PO DAILY Supplement 06/18/23
mcg-226 mg-90 mg capsule
(PreserVision AREDS)
Vital Signs and Labs
-
Vital Signs and Labs:
Vital Signs
Temp Pulse Resp BP Pulse Ox
36.7 C 62 17 162/65 97
06/21/23 15:00 06/21/23 15:00 06/21/23 15:00 06/21/23 15:00 06/21/23 15:00
Lab Results
06/21/23 05:51
06/21/23 05:51
Sodium 135 mmol/L (135-145) 06/21/23 05:51
Potassium 3.7 mmol/L (3.5-5.1) 06/21/23 05:51
BUN 24 mg/dl (7-17) H 06/21/23 05:51
Glucose 133 mg/dl (70-99) H 06/21/23 05:51
Calcium 8.6 mg/dl (8.4-10.2) 06/21/23 05:51
Home Medications
-
Home Medications
acetaminophen 650 mg tablet,extended release 650 mg PO Q6H PRN mild pain 06/18/23
aripiprazole 2 mg tablet 4 mg PO DAILY Mental Health/Anxiety 06/18/23
atorvastatin 40 mg tablet 40 mg PO QPM High Cholesterol 06/18/23
cyanocobalamin (vitamin B-12) 1,000 mcg tablet 1,000 mcg PO DAILY Supplement 06/18/23
digoxin 125 mcg (0.125 mg) tablet 125 mcg PO DAILY Heart Failure 06/18/23
docusate sodium 100 mg capsule 100 mg PO DAILY Constipation 06/18/23
donepezil 10 mg tablet 10 mg PO DAILY Neurological Condition 06/18/23
furosemide 20 mg tablet 20 mg PO DAILY Fluid Retention/Swelling 06/18/23
isosorbide mononitrate 30 mg tablet,extended release 24 hr 30 mg PO DAILY Blood Pressure 06/18/23
levothyroxine 88 mcg tablet 88 mcg PO MOTUWETHFR Thyroid 06/18/23
levothyroxine 88 mcg tablet 176 mcg PO SUSA Thyroid 06/18/23
magnesium oxide 250 mg PO QPM Supplement 06/18/23
menthol 0.44 %-zinc oxide 20.6 % topical ointment (CalProtect) 1 applic topical BID Skin Issues 06/18/23
menthol 0.44 %-zinc oxide 20.6 % topical ointment (CalProtect) 1 applic topical QID PRN excoriation 06/18/23
metformin 500 mg tablet 500 mg PO BID@0800,1700 Diabetes 06/18/23
metoprolol succinate 100 mg tablet,extended release 24 hr 100 mg PO DAILY Blood Pressure 06/18/23
mirtazapine 15 mg tablet 15 mg PO HS Mental Health/Anxiety 06/18/23
multivitamin with minerals-folic 133.3 mcg-biotin 1,666.7 mcg capsule (Hair,Skin and Nails (folic acid-biotin)) 1 cap PO QPM Supplement 06/18/23
nystatin 100,000 unit/gram topical powder (Nystop) 1 applic topical BID RASH 06/18/23
nystatin 100,000 unit/gram topical powder (Nystop) 1 applic topical Q6H PRN red rash 06/18/23
pantoprazole 40 mg tablet,delayed release 40 mg PO DAILY Gastrointestinal Issue 06/18/23
rivaroxaban 15 mg tablet (Xarelto) 15 mg PO QPM Blood Clot Prevention/Tx 06/18/23
sacubitril 24 mg-valsartan 26 mg tablet (Entresto) 1 tab PO Q12H Heart Failure 06/18/23
sitagliptin phosphate 50 mg tablet (Januvia) 50 mg PO DAILY Diabetes 06/18/23
vitamins A,C,A-vnud-kunsiv 4,296 mcg-226 mg-90 mg capsule (PreserVision AREDS) 1 cap PO DAILY Supplement 06/18/23
Medications
-
Medications:
Generic Name Dose Route Start Last Admin
Trade Name Freq PRN Reason Stop Dose Admin
Acetaminophen 650 mg 06/18/23 19:21 06/19/23 10:33
Acetaminophen 325 Mg Tablet PO 07/16/23 19:20 650 mg
Q6HPRN PRN Administration
mild pain
Aripiprazole 4 mg 06/19/23 08:00 06/21/23 09:02
Aripiprazole 2 Mg Tablet PO 07/17/23 07:59 4 mg
DAILY ORI Administration
Atorvastatin Calcium 40 mg 06/18/23 19:13 06/21/23 17:07
Atorvastatin (Lipitor) 40 Mg Tablet PO 07/16/23 19:12 40 mg
QPM ORI Administration
Cyanocobalamin 1,000 mcg 06/19/23 08:00 06/21/23 09:02
Cyanocobalamin 1,000 Mcg Tablet PO 07/17/23 07:59 1,000 mcg
DAILY ORI Administration
Dextrose 12.5 grams 06/18/23 19:13
Dextrose 50% (0.5 Grams/Ml) 50 Ml Syringe IV 07/16/23 19:12
[id number] PRN
hypoglycemia
Protocol
Digoxin 125 mcg 06/19/23 12:00 06/21/23 13:13
Digoxin 125 Mcg Tablet PO 07/17/23 11:59 125 mcg
NOON ORI Administration
Docusate Sodium 100 mg 06/19/23 08:00 06/21/23 09:03
Docusate Sodium 100 Mg Capsule PO 07/17/23 07:59 100 mg
DAILY ORI Administration
Donepezil HCl 10 mg 06/19/23 08:00 06/21/23 09:02
Donepezil Hcl 10 Mg Tablet PO 07/17/23 07:59 10 mg
DAILY ORI Administration
Glucagon 1 mg 06/18/23 19:13
Glucagon 1 Mg Vial IM 07/16/23 19:12
PRN PRN
hypoglycemia
Protocol
Insulin Aspart 0 units 06/19/23 07:30 06/21/23 17:07
Insulin Aspart Low Resistance 300 Units/3 Ml Pen.Injctr SC 07/17/23 07:29 Not Given
AC ORI
Protocol
Isosorbide Mononitrate 30 mg 06/19/23 08:00 06/21/23 09:02
Isosorbide Mononitrate 30 Mg Extended Release Tablet PO 07/17/23 07:59 30 mg
DAILY ORI Administration
Levothyroxine Sodium 88 mcg 06/21/23 08:00 06/21/23 09:06
Levothyroxine 88 Mcg Tablet PO 07/19/23 07:59 88 mcg
MoTuWeThFr@08 ORI Administration
Levothyroxine Sodium 176 mcg 06/19/23 07:00 06/20/23 06:53
Levothyroxine 88 Mcg Tablet PO 07/17/23 06:59 176 mcg
SuSa@0700 ORI Administration
Magnesium Oxide 250 mg 06/18/23 20:00 06/21/23 17:09
Magnesium Oxide 500 Mg Tablet PO 07/16/23 19:59 250 mg
QPM ORI Administration
Metoprolol Succinate 50 mg 06/22/23 08:00
Metoprolol 50 Mg Extended Release Tablet PO 07/20/23 07:59
DAILY ORI
Miconazole Nitrate 1 applic 06/18/23 19:26
Miconazole Powder Bottle TOPICAL 07/16/23 19:25
Q6H PRN
red rash
Miconazole Nitrate 1 applic 06/18/23 20:00 06/21/23 09:06
Miconazole Powder Bottle TOPICAL 07/16/23 19:59 1 applic
BID ORI Administration
Mirtazapine 15 mg 06/18/23 22:00 06/20/23 22:37
Mirtazapine 15 Mg Regular Release Tablet PO 07/16/23 21:59 15 mg
HS ORI Administration
Multivitamins Therapeutic 1 tablet 06/18/23 20:00 06/21/23 17:07
Multivitamin Tablet PO 07/16/23 19:59 1 tablet
QPM ORI Administration
Oseltamivir Phosphate 30 mg 06/21/23 20:00
Oseltamivir (Tamiflu) 30 Mg Capsule PO 06/23/23 20:01
BID ORI
Rivaroxaban 15 mg 06/18/23 19:13 06/21/23 17:09
Rivaroxaban 15 Mg Tablet PO 07/16/23 19:12 15 mg
QPM ORI Administration
Sacubitril/Valsartan 1 tab 06/18/23 20:00 06/21/23 09:02
Sacubitril 24 Mg/Valsartan 26 Mg (Entresto) Tab PO 07/16/23 19:59 1 tab
Q12 ORI Administration
Sitagliptin Phosphate 50 mg 06/19/23 08:00 06/21/23 09:02
Sitagliptin (Januvia) 50 Mg Tablet PO 07/17/23 07:59 50 mg
DAILY ORI Administration
Sodium Chloride 0 flush 06/18/23 20:00
Sodium Chloride 0.9% (Flush) Syringe IV 07/16/23 19:59
PER PROTOCOL ORI
Vitamin C/Vitamin E 1 cap 06/19/23 08:00 06/21/23 09:02
Vit C/Vit E/Lutein/Min/Crescent-3 (Ocuvite) Capsule PO 07/17/23 07:59 1 cap
DAILY ORI Administration
[2023-06-21 16:39] LABS: Glucose - Point of Care 109 mg/dl (70-99)
[2023-06-21] MEDS: THERAGRAN 1 TABLET PO (17:07)
[2023-06-21] MEDS: LIPITOR 40 MG PO (17:07)
[2023-06-21] MEDS: XARELTO 15 MG PO (17:09)
[2023-06-21] MEDS: MAGNESIUM OXIDE 250 MG PO (17:09)
[2023-06-21 21:33] LABS: Glucose - Point of Care 125 mg/dl (70-99)
[2023-06-21] MEDS: REMERON 15 MG PO (21:51)
--- NOTE | 2023-06-21 22:57 | PTCARENOTE ---
Addendum entered by Tosha Pastor RN 06/21/23 23:49:
BP- 168/62 ( manual), HR-51 at this time sleeping. Updated TEST BAKER.
Original Note:
Collette Amaya- BP- 184/78 ( manual), HR-52-58. Asymptomatic. sleeping. José Miguel Morris, CESAR made aware. Will recheck BP as per advise in an hour.
[2023-06-22] VITALS (9 sets, daily range): BP systolic 102–183; BP diastolic 46–105; PULSE 65–66; BMI 23.7
[2023-06-22 06:36] LABS: Hematocrit 32.2 % (37.0-47.0); Hemoglobin 10.3 g/dL (12.0-16.0); Mean Corpuscular Hgb 27.2 pg (27.0-31.0); Mean Corpuscular Volume 85.2 fL (81.0-99.0); Mean Platelet Volume 10.4 fL (7.4-10.4); Platelet Count 170 10^3/uL (130-400); Red Blood Cell Count 3.78 10^6/uL (4.20-5.40); Red Cell Dist. Width 15.3 % (11.5-14.5); White Blood Cell Count 6.8 10^3/uL (4.8-10.8)
[2023-06-22 07:14] LABS: Blood Urea Nitrogen 23 mg/dl (7-17); Calcium 8.6 mg/dl (8.4-10.2); Carbon Dioxide 29 mmol/L (22-30); Chloride 102 mmol/L (98-107); Estimated Creatinine Clearance 39 ml/min; Glucose 118 mg/dl (70-99); Potassium 3.7 mmol/L (3.5-5.1); Sodium 135 mmol/L (135-145); eGFR 56.25
[2023-06-22 08:47] LABS: Glucose - Point of Care 116 mg/dl (70-99)
[2023-06-22] MEDS: ENTRESTO 24 MG/26 MG 1 TAB PO ×2 (08:48→22:19)
[2023-06-22] MEDS: OCUVITE SOFTGEL 1 CAP PO (08:48)
[2023-06-22] MEDS: IMDUR (EXTENDED RELEASE) 30 MG PO (08:48)
[2023-06-22] MEDS: ABILIFY 4 MG PO (08:48)
[2023-06-22] MEDS: TOPROL XL 50 MG PO (08:49)
[2023-06-22] MEDS: COLACE 100 MG PO (08:49)
[2023-06-22] MEDS: ARICEPT 10 MG PO (08:49)
[2023-06-22] MEDS: TAMIFLU 30 MG PO ×2 (08:49→22:13)
[2023-06-22] MEDS: VITAMIN B-12 1000 MCG PO (08:49)
[2023-06-22] MEDS: JANUVIA 50 MG PO (08:50)
[2023-06-22] MEDS: DESENEX/MITRAZOL/ZEASORB 1 APPLIC TOPICAL ×2 (08:50→22:14)
[2023-06-22] MEDS: SYNTHROID 88 MCG PO (08:53)
[2023-06-22] MEDS: NOVOLOG FLEXPEN-LOW RESISTANCE SC ×2 (08:55→18:23)
--- NOTE | 2023-06-22 09:01 | CM ---
Addendum entered by Munira Vargas 06/22/23 12:26:
Rcd call from [facility]
Reference # [id number]
Auth# [id number]
Approved for 3 days 06/22-06/24
Next review 06/24 -
Fax - [phone]
Addendum entered by Munira Sam 06/22/23 10:41:
Received call from Michelle at [facility] - pt accepted to [facility]
Report - [phone] ext [phone]
Fax - [phone]
Called [facility] to obtain auth
Spoke with Earle
Pending auth/reference # [id number]
Clinicals faxed to [phone]
Original Note:
Spoke with Michelle at [facility] [phone]
Received clinicals - will review and call with decision
--- NOTE | 2023-06-22 10:12 | W.PN.NEURO.1 ---
Today's Communication / Plan
-
.
Subjective/Objective
Subjective Data
Date of Service: June 22, 2023
Ms. Amaya reports no complaints. BP has improved. She has been afebrile. No reports of headache, change in vision. Brain MRI is pending.
PMH: A-fib on Xarelto, CAD, HTN, DLP, CHF, hypothyroidism, advanced Alzheimer's disease, vit B12 deficiency
PSH: CABG, EDWARD
SH: Former Smoker, [place] resident
FH: Not pertinent
All:NKDA
ROS: Positive for fatigue
HENT: Positive for hearing impairment
Eyes: Negative. Negative for photophobia, pain and visual disturbance.
Respiratory: Negative for cough, choking and shortness of breath.
Cardiovascular: Negative for chest pain, palpitations and leg swelling.
Gastrointestinal: Positive for poor appetite
Endocrine: Negative. Negative for cold intolerance.
Genitourinary: Negative for dysuria, flank pain and urgency.
Musculoskeletal: Negative for back pain, gait problem, neck pain and neck stiffness.
Skin: Negative for rash.
Allergic/Immunologic: Negative. Negative for immunocompromised state.
Neurological: Positive for chronic confusion
�
�
General: Well developed. In no acute distress.
Cardio: Regular rate and rhythm without murmur. Extremities are without cyanosis or edema.
Neuro:
Mental Status: Alert, oriented to name, 'June,'. Impaired attention. Increased processing time. Attends to both sides.
Cranial Nerves: . Pupils are equally round and reactive to light.� EOMs full. BTT B/L.� No ptosis.� No nystagmus.� V1-V3 intact to light touch and pinprick bilaterally, symmetric.� Face symmetric.� Poor hearing AU.� The palate elevated well.� SCMs
and traps 5/5.� Tongue midline.� No dysarthria.
Motor:� � � � Normal bulk and tone.� No pronator or arm drift.� Strength 5/5 throughout. No clonus.
Reflexes:� � � � � positive for grasp BL
Sensory: � limited due to poor attention
Coordination: No dysmetria or tremor.�
Gait: � � � � � deferred
Assessment and Plan:
�
I. Transient clinical hemineglect. 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 Differential diagnosis included R MCA infarct/TIA
II. Multifactorial encephalopathy (neurodegenerative, metabolic, infectious)
III. Alzheimer's disease with behavioral manifestations
IV. A-Fib
-fall and aspiration precautions;
-Brain MRI wo chelsea
-Continue Xarelto
-Will follow
�
I personally reviewed all radiology and labs along with past medical records pertinent to current medical problems.
�
Thank you for allowing us to participate in the care of this patient. We will continue to follow. Please do not hesitate to contact us with any questions or concerns.
�
Objective Data
Vital Signs
Temp Pulse Resp BP Pulse Ox
36.7 C 80 18 102/46 94
06/22/23 07:00 06/22/23 07:00 06/22/23 07:00 06/22/23 08:48 06/22/23 07:00
Lab Results
06/22/23 06:01
06/22/23 06:01
Sodium 135 mmol/L (135-145) 06/22/23 06:01
Potassium 3.7 mmol/L (3.5-5.1) 06/22/23 06:01
BUN 23 mg/dl (7-17) H 06/22/23 06:01
Glucose 118 mg/dl (70-99) H 06/22/23 06:01
Calcium 8.6 mg/dl (8.4-10.2) 06/22/23 06:01
Patient Allergies
No Known Allergies Allergy (Verified 06/18/23 14:39)
[2023-06-22 12:08] LABS: Glucose - Point of Care 157 mg/dl (70-99)
[2023-06-22] MEDS: NOVOLOG FLEXPEN-LOW RESISTANCE 1 UNITS SC (13:03)
[2023-06-22] MEDS: LANOXIN 125 MCG PO (13:03)
--- NOTE | 2023-06-22 13:12 | W.PN.HOSP.TC ---
Today's Communication/Plan
-
MRI brain
xarelto
neuro recs
placement
Assessment / Plan
Assessment / Plan
HPI: 82-year-old with past medical history of A-fib, congestive heart failure, hypertension, hyperlipidemia, type 2 diabetes, hypothyroidism, Alzheimer's; presented from dementia unit with cough that started the day before.�
She also fell and hit her head.�She was noted to be hypotensive which prompted her to be brought to the the ER.�
Patient has severe dementia, hence unable to provide significant history.
She was tested positive for flu in ER and received NSS 500 cc.
A/P:
# Sepsis POA due to influenza
# Generalized weakness due to influenza
COVID-negative, CXR unrevealing
UA clean, blood Cx neg
Flu A positive, started Tamiflu (renally dose x5 days)
PT OT recc SNF
SPL recc pureed diet
# Dehydration with Acute kidney injury, resolved
s/p IVF
Creatinine 1.6 -> 1.2 (baseline SCr 1.3 from 03/2023)
Continue to monitor SCr
# Alzheimer's disease
Continue SALES REPRESENTATIVE ADVERTISING Abilify, Aricept, Mirtazapine
# Left visual field cut
#No left-sided peripheral vision
� Neurology consulted
� CT head negative
-MRI pending
� Follow-up neurology for further recommendations
-cont xarelto
# GERD
PPI continued
# Hyperlipidemia
Statin continued
# History of A-fib, likely permanent A fib
Cont SALES REPRESENTATIVE ADVERTISING Digoxin, level WNL
Cont SALES REPRESENTATIVE ADVERTISING Metoprolol
Cont SALES REPRESENTATIVE ADVERTISING Xarelto
# History of congestive heart failure, Not in acute exacerbation
# Essential hypertension
resume lasix
Blood pressure stable, Cont SALES REPRESENTATIVE ADVERTISING Imdur and Entresto
# Hypothyroidism
Levothyroxine continued
# Type 2 diabetes
Cont Januvia
hold SALES REPRESENTATIVE ADVERTISING Metformin with CKD
Sliding scale
DVT prophylaxis-Xarelto
CODE STATUS-Full code
DW RN
Pending MRI, then placement
Anticipated Discharge: Within 24 hours
Subjective/Interval History
-
Date of Service: June 22, 2023
no acute events overnight
Objective Data
-
Labs:
Laboratory Results
06/22/23
06:01
WBC 6.8
Hgb 10.3 L
Hct 32.2 L
Plt Count 170
Sodium 135
Potassium 3.7
Chloride 102
Carbon Dioxide 29
BUN 23 H
Creatinine 1.0
Glucose 118 H
Calcium 8.6
Vital Signs:
Vital Signs
Temp Pulse Resp BP Pulse Ox
97.5 F 68 17 132/66 98
06/22/23 11:00 06/22/23 13:03 06/22/23 11:00 06/22/23 11:00 06/22/23 11:00
I&O
06/21/23 06/22/23 06/23/23
06:59 06:59 06:59
Intake Total 960 / 960 460 / 460
Balance 960 / 960 460 / 460
Review of Systems
-
Unable to obtain full review of systems at this time due to: Dementia
History Source: Patient
Data Reviewed
-
CT Scan: Image personally visualized and interpreted
Labs: Labs Reviewed by me
[2023-06-22 17:32] LABS: Glucose - Point of Care 138 mg/dl (70-99)
[2023-06-22] MEDS: XARELTO 15 MG PO (18:00)
[2023-06-22] MEDS: LIPITOR 40 MG PO (18:23)
[2023-06-22] MEDS: MAGNESIUM OXIDE 250 MG PO (18:23)
[2023-06-22] MEDS: THERAGRAN 1 TABLET PO (18:24)
[2023-06-22 22:06] LABS: Glucose - Point of Care 151 mg/dl (70-99)
[2023-06-22] MEDS: REMERON 15 MG PO (22:12)
[2023-06-23 03:13] VITALS: BP 173/77
[2023-06-23 04:15] VITALS: BMI 23.6
[2023-06-23] MEDS: ENTRESTO 24 MG/26 MG 1 TAB PO (06:07)
[2023-06-23 06:29] LABS: Hematocrit 34.1 % (37.0-47.0); Mean Corp Hgb Conc. 32.3 g/dL (33.0-37.0); Mean Corpuscular Hgb 26.8 pg (27.0-31.0); Mean Corpuscular Volume 83.2 fL (81.0-99.0); Mean Platelet Volume 10.4 fL (7.4-10.4); Platelet Count 196 10^3/uL (130-400); Red Cell Dist. Width 15.1 % (11.5-14.5); White Blood Cell Count 5.9 10^3/uL (4.8-10.8)
[2023-06-23 07:00] VITALS: BP 184/76
[2023-06-23 07:26] LABS: Blood Urea Nitrogen 20 mg/dl (7-17); Carbon Dioxide 31 mmol/L (22-30); Chloride 99 mmol/L (98-107); Estimated Creatinine Clearance 35 ml/min; Glucose 124 mg/dl (70-99); Sodium 138 mmol/L (135-145); eGFR 50.17
--- NOTE | 2023-06-23 07:30 | PTCARENOTE ---
@0554;Instructed CESAR Lentz BE=869/77 & HR 61.Instructed to give pt's morning dose of Entresto now and administered.
[2023-06-23 07:32] LABS: Potassium 3.6 mmol/L (3.5-5.1)
[2023-06-23 08:22] LABS: Glucose - Point of Care 139 mg/dl (70-99)
[2023-06-23] MEDS: NOVOLOG FLEXPEN-LOW RESISTANCE SC (08:48)
[2023-06-23] MEDS: ARICEPT 10 MG PO (08:57)
[2023-06-23] MEDS: ABILIFY 4 MG PO (08:57)
[2023-06-23] MEDS: TOPROL XL 50 MG PO (08:58)
[2023-06-23] MEDS: VITAMIN B-12 1000 MCG PO (08:58)
[2023-06-23] MEDS: TAMIFLU 30 MG PO (08:58)
[2023-06-23] MEDS: IMDUR (EXTENDED RELEASE) 30 MG PO (08:58)
[2023-06-23] MEDS: JANUVIA 50 MG PO (08:58)
[2023-06-23] MEDS: LASIX 20 MG PO (08:58)
[2023-06-23] MEDS: COLACE PO (08:59)
[2023-06-23] MEDS: OCUVITE SOFTGEL PO (09:00)
[2023-06-23] MEDS: DESENEX/MITRAZOL/ZEASORB 1 APPLIC TOPICAL (09:00)
[2023-06-23 09:02] VITALS: BP 180/70
[2023-06-23] MEDS: SYNTHROID 88 MCG PO (09:04)
--- NOTE | 2023-06-23 10:37 | CM ---
Addendum entered by Shyann Tadeo 06/23/23 12:23:
IMM explained and signed @ 1126
Addendum entered by Shyann Tadeo 06/23/23 11:18:
Bed at facility will be ready @ 3:00 PM
Nurse and Son notified
Addendum entered by Shyann Tadeo 06/23/23 10:44:
Son will tranport patient to facility
Addendum entered by Shyann Tadeo 06/23/23 10:39:
Report - [phone] ext [phone]
Fax - [phone]
Original Note:
Plan: Discharge to [facility] today
[2023-06-23 11:00] VITALS: BP 123/76
[2023-06-23 12:14] LABS: Glucose - Point of Care 153 mg/dl (70-99)
--- NOTE | 2023-06-23 12:31 | W.PN.HOSP.TC ---
Addendum entered and electronically signed by Hermes Cerda MD 06/24/23 15:40:
[id number]
Original Note:
Today's Communication/Plan
-
reduce toprol to 50mg toprol
completed tamiflu
dc today
f/u with pcp within 1 week
pureed diet, ctm speech eval outpatient
Assessment / Plan
Assessment / Plan
HPI: 82-year-old with past medical history of A-fib, congestive heart failure, hypertension, hyperlipidemia, type 2 diabetes, hypothyroidism, Alzheimer's; presented from dementia unit with cough that started the day before.�
She also fell and hit her head.�She was noted to be hypotensive which prompted her to be brought to the the ER.�
Patient has severe dementia, hence unable to provide significant history.
She was tested positive for flu in ER and received NSS 500 cc.
A/P:
# Sepsis POA due to influenza
# Generalized weakness due to influenza
COVID-negative, CXR unrevealing
UA clean, blood Cx neg
Flu A positive, started Tamiflu (5 days completed)
PT OT recc SNF
SPL recc pureed diet
# Dehydration with Acute kidney injury, resolved
s/p IVF
Creatinine 1.6 -> 1.2 (baseline SCr 1.3 from 03/2023)
Continue to monitor SCr
# Alzheimer's disease
Continue HIGH SCHOOL CHEMISTRY TEACHER Abilify, Aricept, Mirtazapine
# Left visual field cut
#No left-sided peripheral vision
� Neurology consulted
� CT head negative
-MRI negative for acute pathology; mild chronic MICROANGIOPATHIC ischemia.
� Follow-up neurology for further recommendations
-cont xarelto
# GERD
PPI continued
# Hyperlipidemia
Statin continued
# History of A-fib, likely permanent A fib
Cont HIGH SCHOOL CHEMISTRY TEACHER Digoxin, level WNL
Cont HIGH SCHOOL CHEMISTRY TEACHER Metoprolol - reduce dose to 50mg from 100mg
Cont HIGH SCHOOL CHEMISTRY TEACHER Xarelto
# History of congestive heart failure, Not in acute exacerbation
# Essential hypertension
lasix
Blood pressure stable, Cont HIGH SCHOOL CHEMISTRY TEACHER Imdur and Entresto
# Hypothyroidism
Levothyroxine continued
# Type 2 diabetes
Cont Januvia
Metformin
Sliding scale
DVT prophylaxis-Xarelto
CODE STATUS-Full code
More than 30 minutes spent in discharge including
Final examination of the patient
Summarizing hospital stay
Instructions for continuing care to all relevant caregivers
Preparation of discharge records, prescriptions, and referral forms
Total time spent (35 in minutes):
Anticipated Discharge: Today
Subjective/Interval History
-
Date of Service: June 23, 2023
no acute events; MRI negative
Objective Data
-
Labs:
Laboratory Results
06/23/23
05:56
WBC 5.9
Hgb 11.0 L
Hct 34.1 L
Plt Count 196
Sodium 138
Potassium 3.6
Chloride 99
Carbon Dioxide 31 H
BUN 20 H
Creatinine 1.1 H
Glucose 124 H
Calcium 9.0
Vital Signs:
Vital Signs
Temp Pulse Resp BP Pulse Ox
98.2 F 55 18 123/76 96
06/23/23 11:00 06/23/23 11:00 06/23/23 11:00 06/23/23 11:00 06/23/23 11:00
I&O
06/22/23 06/23/23 06/24/23
06:59 06:59 06:59
Intake Total 460 / 460 300 / 300
Balance 460 / 460 300 / 300
Review of Systems
-
Unable to obtain full review of systems at this time due to: Dementia
History Source: Patient
Data Reviewed
-
Diagnostic Radiology: Image personally visualized and interpreted and Report Reviewed by me
CT Scan: Image personally visualized and interpreted
Labs: Labs Reviewed by me
--- NOTE | 2023-06-23 12:44 | W.DS.TRANS ---
Addendum entered and electronically signed by Hemres Cerda MD 06/23/23 13:53:
oseltamivir 30mg bid po- .5 days
Original Note:
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
-
Discharge Instructions:
Discharge Diagnosis/Procedures Generalized weakness due to influenza A; severe
dementia
Diet Other diet
Additional Diets pureed diet
Activity As tolerated
Driving Restrictions No driving
Instructions:
Stand-Alone Forms:
Changes to Home Medications: Yes
Discharge Medications:
DC Medications w/original date entered in [facility]
acetaminophen 650 mg tablet,extended release 650 mg PO Q6H PRN mild pain 06/18/23
aripiprazole 2 mg tablet 4 mg PO DAILY Mental Health/Anxiety 06/18/23
atorvastatin 40 mg tablet 40 mg PO QPM High Cholesterol 06/18/23
cyanocobalamin (vitamin B-12) 1,000 mcg tablet 1,000 mcg PO DAILY Supplement 06/18/23
digoxin 125 mcg (0.125 mg) tablet 125 mcg PO DAILY Heart Failure 06/18/23
docusate sodium 100 mg capsule 100 mg PO DAILY Constipation 06/18/23
donepezil 10 mg tablet 10 mg PO DAILY Neurological Condition 06/18/23
furosemide 20 mg tablet 20 mg PO DAILY Fluid Retention/Swelling 06/18/23
isosorbide mononitrate 30 mg tablet,extended release 24 hr 30 mg PO DAILY Blood Pressure 06/18/23
levothyroxine 88 mcg tablet 88 mcg PO MOTUWETHFR Thyroid 06/18/23
levothyroxine 88 mcg tablet 176 mcg PO SUSA Thyroid 06/18/23
magnesium oxide 250 mg PO QPM Supplement 06/18/23
menthol 0.44 %-zinc oxide 20.6 % topical ointment (CalProtect) 1 applic topical BID Skin Issues 06/18/23
menthol 0.44 %-zinc oxide 20.6 % topical ointment (CalProtect) 1 applic topical QID PRN excoriation 06/18/23
metformin 500 mg tablet 500 mg PO BID@0800,1700 Diabetes 06/18/23
mirtazapine 15 mg tablet 15 mg PO HS Mental Health/Anxiety 06/18/23
multivitamin with minerals-folic 133.3 mcg-biotin 1,666.7 mcg capsule (Hair,Skin and Nails (folic acid-biotin)) 1 cap PO QPM Supplement 06/18/23
nystatin 100,000 unit/gram topical powder (Nystop) 1 applic topical BID RASH 06/18/23
nystatin 100,000 unit/gram topical powder (Nystop) 1 applic topical Q6H PRN red rash 06/18/23
pantoprazole 40 mg tablet,delayed release 40 mg PO DAILY Gastrointestinal Issue 06/18/23
rivaroxaban 15 mg tablet (Xarelto) 15 mg PO QPM Blood Clot Prevention/Tx 06/18/23
sacubitril 24 mg-valsartan 26 mg tablet (Entresto) 1 tab PO Q12H Heart Failure 06/18/23
sitagliptin phosphate 50 mg tablet (Januvia) 50 mg PO DAILY Diabetes 06/18/23
vitamins A,C,M-xszi-jdkyhz 4,296 mcg-226 mg-90 mg capsule (PreserVision AREDS) 1 cap PO DAILY Supplement 06/18/23
metoprolol succinate 50 mg tablet,extended release 24 hr 50 mg PO DAILY #0 tabs 06/23/23
Home Medication Changes
metoprolol succinate 50 mg tablet,extended release 24 hr 50 mg PO DAILY #0 tabs 06/23/23
Pending Results: No
[2023-06-23] MEDS: NOVOLOG FLEXPEN-LOW RESISTANCE 1 UNITS SC (13:25)
[2023-06-23] MEDS: LANOXIN 125 MCG PO (13:27)
--- NOTE | 2023-06-23 14:46 | PTCARENOTE ---
RN attempted to call report 3x to nursing facility. Nobody answered phone, RN left voicemail for nursing alteration workroom supervisor to call back.
--- NOTE | 2023-06-23 16:08 | PTCARENOTE ---
RN gave report to Alison from nursing facility.
== END 2023-06-23 15:47 | DRG 872 ==
LOC: 3 WEST ACU 17:59
PROVIDERS: Registered Nurse; ADMITTING PHYSICIAN Internal Medicine; ATTENDING PHYSICIAN Internal Medicine; CONSULT PHYSICIAN Psychiatry & Neurology Neurology; EMERGENCY PHYSICIAN Emergency Medicine; FAMILY PHYSICIAN Internal Medicine
DX: A41.89 Other specified sepsis (principal); I48.21 Permanent atrial fibrillation; N17.9 Acute kidney failure, unspecified; I13.0 Hypertensive heart and chronic kidney disease with heart failure and stage 1 through stage 4 chronic kidney disease, or unspecified chronic kidney disease; J10.1 Influenza due to other identified influenza virus with other respiratory manifestations; Z87.891 Personal history of nicotine dependence; Z11.52 Encounter for screening for COVID-19; E86.0 Dehydration; F02.C0 Dementia in other diseases classified elsewhere, severe, without behavioral disturbance, psychotic disturbance, mood disturbance, and anxiety; G30.9 Alzheimer's disease, unspecified; K21.9 Gastro-esophageal reflux disease without esophagitis; I50.9 Heart failure, unspecified; N18.9 Chronic kidney disease, unspecified; E03.9 Hypothyroidism, unspecified; E11.22 Type 2 diabetes mellitus with diabetic chronic kidney disease; I25.10 Atherosclerotic heart disease of native coronary artery without angina pectoris; Z79.01 Long term (current) use of anticoagulants; E53.8 Deficiency of other specified B group vitamins; E78.00 Pure hypercholesterolemia, unspecified
CPT/HCPCS: 70450; 70551; 71046; 80048; 80053; 80162; 81003; 82962; 83036; 83605; 85025; 85027; 87040; 87502; 87811; 92610; 93005; 94669; 97116; 97163; 97167; 97530; 97535; 99285

== ENCOUNTER 2023-07-29 22:27 | Observation (INO) | payer OTHER, SELFPAY ==
[2023-07-29 17:23] VITALS: BP 121/57
[2023-07-29 18:29] VITALS: BP 148/69
[2023-07-29 18:40] LABS: % Basophils 0.5 % (0-2); % Immature Granulocytes 0.2 % (0-0.5); % Lymphocytes 43.5 % (20.5-51.1); % Monocytes 7.4 % (1.7-9.3); % Neutrophils 47.4 % (42.2-75.2); Absolute Eosinophils 0.1 10^3/uL (0-0.7); Absolute Lymphocytes 3.8 10^3/uL (1.2-3.4); Absolute Monocytes 0.7 10^3/uL (0.1-0.6); Absolute Neutrophils 4.2 10^3/uL (1.4-6.5); Hemoglobin 11.3 g/dL (12.0-16.0); Mean Corp Hgb Conc. 31.4 g/dL (33.0-37.0); Mean Corpuscular Hgb 27.2 pg (27.0-31.0); Mean Corpuscular Volume 86.5 fL (81.0-99.0); Mean Platelet Volume 10.1 fL (7.4-10.4); Nucleated Red Blood Cells % 0 %; Platelet Count 233 10^3/uL (130-400); Red Blood Cell Count 4.16 10^6/uL (4.20-5.40); Red Cell Dist. Width 15.7 % (11.5-14.5); White Blood Cell Count 8.8 10^3/uL (4.8-10.8)
--- NOTE | 2023-07-29 18:46 | ED.GENMED ---
History of Present Illness
General
Chief Complaint: Weakness
Source: patient
Exam Limitations: none
Time Seen by Provider: 07/29/23 18:20
Nursing documentation reviewed up to this point in time: agreed with
Travel History
Have you had any contact with someone who has COVID-19?: No
Do you have any symptoms of coronavirus? Fever > 100 degrees, chills, cough, shortness of breath, sore throat, loss of taste or smell, muscle aches, or headache?: No
History of Present Illness
History of Present Illness:
Patient is an 83-year-old female with history of dementia, diabetes hyperlipidemia depression from [facility] memory care unit sent for evaluation.
Patient does have a history of dementia diagnosed in November. Family giving history reports patient has become increasingly weaker since she was hospitalized here at [place] in June for the flu. She has had 4 falls in 4 weeks (last fell/slid
out of bed several days ago). She has had a decreased appetite and not eating or drinking as much. They report she does have chronic diarrhea and she has had chronic diarrhea for about 4 months.
Past History
Past History
ED Past Medical History: Arrthythmia (afib), CHF, HTN, Hypercholesterolemia, NIDDM, Hypothyroidism and Psychiatric (alzheimers)
ED Past Surgical History: Cardiac (CABG, Stents X 6,) and Gynecological (Hysterectomy)
Social History
Tobacco: Former smoker
Alcohol: Occasional
Personal:
Living: with family
Review of Systems
Review of Systems
Allergies reviewed?: Yes
All Other Systems: ROS reviewed and negative except as documented in HPI and ROS
Constitutional: Reports weight loss, fatigue and other (increasing weakness)
EENT: Reports no symptoms
Respiratory: Reports no symptoms
Cardiac: Reports no symptoms
ABD/GI: Reports no symptoms
: Reports no symptoms
Musculoskeletal: Reports other (pain to coccyx)
Skin: Reports no symptoms
Neurological: Reports other (Normally confused)
Psychiatric: Reports no symptoms
Phy Exam
General Physical Exam
General Presentation: no apparent distress
General age: appears stated age
General Skin: warm and dry
General Habitus: elderly
General Mental: alert
General Hydration: dry mucous membranes
ENT Exam
ENT Exam: EOMI
Eye Exam
Eye Exam: PERRL and EOMI
Eye Exam General: PERRL: bilateral and EOM intact: bilateral
Pupil Exam: Bilateral: round and reactive
Cardiovascular Exam
Cardiovascular Exam: regular rate/rhythm, no murmur and normal peripheral pulses
Pulmonary Exam
Pulmonary Exam: lungs clear and no respiratory distress
Gastrointestinal Exam
Gastrointestinal Exam: non tender and soft
Neurological Exam
Neurological Exam: alert
Musculoskeletal Exam
Musculoskeletal Exam: full ROM and other (No breakdown to sacral area)
Skin Exam
Skin Exam: normal color and warm/dry
Course
Orders/Labs/Results
Orders:
Orders
07/29/23 18:28
Complete Blood Count/With Diff Urgent
Comprehensive Metabolic Panel Urgent
07/29/23 18:45
Straight cath- Treatment ONCE
07/29/23 18:47
CT Head W/o Iv Contrast Urgent
Comment:
Reason For Exam: trauma
Chest [CR Chest - 2 Views ] Urgent
Comment:
Reason For Exam: weak
Coccyx/Sacrum, 2 View CR [CR Sacrum/coccyx Min 2 View] Urgent
Comment:
Reason For Exam: trauma
07/29/23 19:30
UA Reflex to Culture [Urinalysis Reflex To Culture] Urgent
Date Specimen was Collected: 07/29/23
Time Specimen was Collected: 18:59
Urine Microscopic Reflex Cult Urgent
Urine Culture Urgent
ALANNA Source: U
Specimen Description:
Date Specimen was Collected: 07/29/23
Time Specimen was Collected: 18:59
07/29/23 20:11
0.9% Sodium Chloride 500 ml [Nss] 500 ml IV BOLUS
07/29/23 20:49
CefTRIAXone [Rocephin] 1,000 mg IV NOW STA
07/29/23 20:51
Electrocardiogram (*1) Stat
Reason for Study: Other
Other Reason for Exam: chest pain
EKG- Treatment ONCE
07/29/23 21:11
Lactic Acid Q4H
Comment: CANCEL 2nd LACTIC ACID IF 1st LACTIC ACID IS LESS THAN 2
Blood Culture Q30M
ALANNA Source: Blood/Venous
Specimen Description:
Blood Culture Q30M
ALANNA Source: Blood/Venous
Specimen Description:
07/29/23 21:17
Admit/Transfer Patient As Directed
Co-Sign Provider:
Level of Care: Observation services
Assign to:: Medical/Surgical
Physician / Group: lori
Diagnosis: uti
07/29/23 21:18
Code Status As Directed
Resuscitation Status: Full Code
07/30/23 01:00
Lactic Acid Q4H
Comment: CANCEL 2nd LACTIC ACID IF 1st LACTIC ACID IS LESS THAN 2
Abnormal Lab Results
07/29/23 07/29/23
18:28 19:30
RBC 4.16 L 10^6/uL
(4.20-5.40)
Hgb 11.3 L g/dL
(12.0-16.0)
Hct 36.0 L %
(37.0-47.0)
MCHC 31.4 L g/dL
(33.0-37.0)
RDW 15.7 H %
(11.5-14.5)
Absolute Lymphs (auto) 3.8 H 10^3/uL
(1.2-3.4)
Absolute Monos (auto) 0.7 H 10^3/uL
(0.1-0.6)
BUN 26 H mg/dl
(7-17)
Creatinine 1.6 H mg/dL
(0.6-1.0)
Leukocyte Esterase Rfl Trace A
(Negative)
Urine WBC (Reflex) 21-25 A /HPF
(0-5)
Urine Bacteria (Reflex) Few A
(Negative)
07/29/23 18:28
07/29/23 18:28
Vital Signs
Initial and Last Documented VS:
Initial Vital Signs
Temp Pulse Resp BP Pulse Ox
98.1 F 60 18 121/57 98
07/29/23 17:23 07/29/23 17:23 07/29/23 17:23 07/29/23 17:23 07/29/23 17:23
Last Documented Vital Signs
Temp Pulse Resp BP Pulse Ox
98.1 F 74 16 167/98 97
07/29/23 17:23 07/29/23 21:21 07/29/23 21:21 07/29/23 23:01 07/29/23 23:15
MDM/Problems Addressed
Differential Diagnosis Includes:
Not limited to failure to thrive, dehydration, infection, UTI
MDM/Problems Addressed:
83 yr old [place] from [place] sent for worsening weakness. Patient who does have a history of Alzheimer's and dementia as per family has had a gradual decline and not eating week.chronic diarrhea. Patient was complaining of sacral pain as per family.
Patient is awake alert she is confused but trying to answer questions. She is afebrile with a normal white count hemoglobin is stable. Patient appears dehydrated and has slight increased renal function compared to June 2023.
Patient has had several falls as documented recently. CT head negative pt is on xarelto.
Due to sacral pain x-ray was done and negative. There is no obvious skin breakdown to sacrum. Chest x-ray negative. Patient does have UTI. likely combination of failure to thrive, worsening Alzheimer's dementia and now UTI will admit for
weakness and treatment of UTI.
Son made aware of dx and plan
Chronic conditions affecting care:
alzheimers/dementia
*Radiology
Radiology exam reviewed: radiology read reviewed
*Pulse Oximetry
Patient hypoxic: no
*Critical Care Note
Total Time (30-74mins, 75-104mins- exclusive of procedures): Not Applicable
Data Reviewed
Review of Other/Old Records Reveals: Discharge Summary
Source: patient, family and snf
ED Attending Note
-
Portions of this chart may have been created with voice recognition software.� Occasional wrong word or��sound alike� substitutions may have occurred due to the inherent limitations of voice recognition software.
Discharge Plan
Departure
Patient Disposition: Admit
Date of Disposition: 07/29/23
Time of Disposition: 20:51
Admit to: Med/Surg
Admit to doctor: hospitalist
Presentation/result/management discussed w/ accepting MD/DO: Hospitalist
Patient with high blood pressure during this ER visit?: Yes
Condition: Fair
Covid-19: Not Applicable
Discharge Problem:
Acute UTI, Weakness, Adult failure to thrive, Acute renal insufficiency
Interventions
Interventions:
*Risk Screen - Suicide Last Done: 07/29/23 17:23
*General Assessment Last Done: 07/29/23 17:23
*Neglect/Abuse Screening Last Done: 07/29/23 17:23
ED- Fall Risk Assessment Last Done: 07/29/23 18:32
*ED COVID-19 Vaccine History Last Done: 07/29/23 17:23
ED- Cardiac Assessment Last Done: 07/29/23 18:32
ED- Neurological Assessment Last Done: 07/29/23 18:32
ED- Pulmonary Assessment Last Done: 07/29/23 18:32
[2023-07-29 18:55] LABS: ALT (SGPT) 15 U/L (0-35); AST (SGOT) 22 U/L (14-36); Alkaline Phosphatase 53 U/L (38-126); Blood Urea Nitrogen 26 mg/dl (7-17); Calcium 10.1 mg/dl (8.4-10.2); Carbon Dioxide 29 mmol/L (22-30); Chloride 98 mmol/L (98-107); Glucose 98 mg/dl (70-99); Sodium 137 mmol/L (135-145); Total Bilirubin 0.7 mg/dl (0.2-1.3); Total Protein 6.5 g/dl (6.3-8.2)
[2023-07-29 20:15] LABS: Urine Albumin Negative (Neg - Trace); Urine Bilirubin Negative (Negative); Urine Character Clear (Clear); Urine Color Yellow; Urine Glucose Negative (Negative); Urine Ketone Negative (Negative); Urine Leukocyte Trace (Negative); Urine Nitrite Negative (Negative); Urine Occult Blood Negative (Negative); Urine Specific Gravity 1.005 (<1.030); Urine Urobilinogen Negative (Neg - 1+)
[2023-07-29] MEDS: NSS 500 IV (20:24)
[2023-07-29 20:37] LABS: Urine Bacteria Few (Negative); Urine White Cell 21-25 /HPF (0-5)
[2023-07-29] MEDS: ROCEPHIN 1000 MG IV (21:13)
[2023-07-29 21:19] VITALS: BMI 21.9
[2023-07-29 21:20] VITALS: BP 164/63
[2023-07-29 21:21] VITALS: BP 164/63
--- NOTE | 2023-07-29 21:22 | HPS.HSE ---
Family Physician
-
Family Physician: Jus Marie
Chief Complaint
-
weakness
History of Present Illness
83-year-old female with past medical history of atrial fibrillation, CAD status post CABG, stents x 6, CHF, likely permanent atrial fibrillation, hypertension, hypercholesteremia, diabetes, hypothyroidism, Alzheimer's dementia, presenting from
[facility] memory care for weakness. Patient does have a history of dementia diagnosed in November. Since she was diagnosed for the flu here in June he has been increasingly weaker. She has had 4 falls in the past 4 weeks and last slid
out of bed several days ago. She has decreased appetite not eating and drinking as much. She has lost weight. She states that she has been incontinent of urine in the past few days but denies any burning. Denies nausea vomiting or abdominal pain
or diarrhea although ER report states that she has been having chronic diarrhea for the past 4 months.
Medical History
Past Medical History
Past Medical History: Reports Other (atrial fibrillation, CAD status post CABG, stents x 6, CHF, likely permanent atrial fibrillation, hypertension, hypercholesteremia, diabetes, hypothyroidism, Alzheimer's dementia)
Past Surgical History: Reports Other (Cardiac (CABG, Stents X 6,) and Gynecological (Hysterectomy))
Social History
Tobacco: Non-smoker
Alcohol: None
Drug: None
Family History
Family History: Not pertinent
Allergies / Home Medications
Allergies reflects when Allergies were last updated in [facility].
Home Medications with original date entered in [facility]
Allergy/Medication List:
Allergies
Allergy/AdvReac Type Severity Reaction Status Date / Time
No Known Allergies Allergy Verified 07/29/23 17:26
Home Medications
acetaminophen 650 mg tablet,extended release 650 mg PO Q6H PRN FEVER 06/18/23
aripiprazole 2 mg tablet 2 mg PO DAILY Mental Health/Anxiety 06/18/23
atorvastatin 40 mg tablet 40 mg PO QPM High Cholesterol 06/18/23
cyanocobalamin (vitamin B-12) 1,000 mcg tablet 1,000 mcg PO DAILY Supplement 06/18/23
digoxin 125 mcg (0.125 mg) tablet 125 mcg PO Q48H Heart Failure 06/18/23
donepezil 10 mg tablet 10 mg PO QPM Neurological Condition 06/18/23
furosemide 20 mg tablet 20 mg PO DAILY Fluid Retention/Swelling 06/18/23
isosorbide mononitrate 30 mg tablet,extended release 24 hr 30 mg PO DAILY Blood Pressure 06/18/23
levothyroxine 88 mcg tablet 88 mcg PO MOTUWETHFR Thyroid 06/18/23
levothyroxine 88 mcg tablet 176 mcg PO SUSA Thyroid 06/18/23
magnesium oxide 250 mg PO QPM Supplement 06/18/23
metformin 500 mg tablet 500 mg PO BID@0800,1700 Diabetes 06/18/23
mirtazapine 15 mg tablet 22.5 mg PO HS Mental Health/Anxiety 06/18/23
nystatin 100,000 unit/gram topical powder (Nystop) 1 applic topical BID ABD FOLDS/BREASTS 06/18/23
nystatin 100,000 unit/gram topical powder (Nystop) 1 applic topical Q6HPRN PRN ABD FOLDS/BREASTS 06/18/23
rivaroxaban 15 mg tablet (Xarelto) 15 mg PO QPM Blood Clot Prevention/Tx 06/18/23
sacubitril 24 mg-valsartan 26 mg tablet (Entresto) 1 tab PO Q12H Heart Failure 06/18/23
sitagliptin phosphate 50 mg tablet (Januvia) 50 mg PO DAILY Diabetes 06/18/23
vitamins A,C,W-unme-qlybso 4,296 mcg-226 mg-90 mg capsule (PreserVision AREDS) 1 cap PO DAILY Supplement 06/18/23
metoprolol succinate 50 mg tablet,extended release 24 hr 50 mg PO DAILY #0 tabs 06/23/23
acetaminophen 325 mg tablet (Tylenol) 650 mg PO Q4HPRN PRN MILD PAIN 07/29/23
cholecalciferol (vitamin D3) 25 mcg (1,000 unit) tablet (Vitamin D3) 25 mcg PO QPM 07/29/23
omeprazole 20 mg tablet,delayed release 20 mg PO DAILY 07/29/23
Review of Systems
-
History Source: Patient
A 12 point ROS was completed and negative except as noted: Yes
Constitutional: Reports No Symptoms
EENT: Reports No Symptoms
Respiratory: Reports No Symptoms
Cardiac: Reports No Symptoms
Abdomen/GI: Reports No Symptoms
: Reports See HPI
Musculoskeletal: Reports No Symptoms
Skin: Reports No Symptoms
Neurological: Reports No Symptoms
Endocrine: Reports No Symptoms
Hematologic/Lymphatic: Reports No Symptoms
Psych: Reports No Symptoms
Physical Exam
Vital Signs
Vital Signs
Temp Pulse Resp BP Pulse Ox
98.1 F 64 16 148/69 98
07/29/23 17:23 07/29/23 18:33 07/29/23 18:33 07/29/23 18:29 07/29/23 18:45
Physical Exam
General: Well Developed, Well Nourished and No Apparent Distress
HEENT: NormoCephalic, Moist mucous membranes and Atraumatic
Respiratory: Clear
Cardiac: S1/S2 and Regular Rhythm; No Murmur or Rub
GI: Soft, Non Tender, Non Distended and Normal Bowel Sounds; No Organomegaly
Rectal: Deferred by Provider
Musculoskeletal: No Clubbing, No Cyanosis and No Edema
Skin: No Rash
Neuro: Nonfocal/grossly intact
Laboratory Results
-
07/29/23 18:28
07/29/23 18:28
Laboratory Results
Total Bilirubin 0.7 mg/dl (0.2-1.3) 07/29/23 18:28
AST 22 U/L (14-36) 07/29/23 18:28
ALT 15 U/L (0-35) 03/21/24 18:28
Alkaline Phosphatase 53 U/L (38-126) 07/29/23 18:28
Data Reviewed
-
Lab Data: Labs Reviewed by me
Old Records: Reviewed
Impression/Plan
-
IMPRESSION:
PLAN:
# Likely UTI
-UA shows 21-25 WBC, trace leukocyte esterase
-Check urine culture, blood culture
-Ceftriaxone
-PT/OT
# Acute kidney injury on CKD likely prerenal
-Creatinine currently 1.6
-Baseline creatinine of 1.2
-Gentle IV fluids
-Hold Entresto
-Hold Lasix
# Failure to thrive secondary to advancing Alzheimer's dementia
-Continue donepezil, aripiprazole, mirtazapine
CAD status post CABG
History of heart failure
-Continue isosorbide mononitrate
Likely permanent atrial fibrillation
-Continue digoxin
-Continue metoprolol
-Continue Xarelto
Essential hypertension
Hypercholesterolemia
-Continue statin
Type 2 diabetes
-Continue metformin
-Continue Januvia
Hypothyroidism
-Continue levothyroxine
-Hold metformin
GERD
-Continue omeprazole
Full code
DVT prophylaxis on Xarelto
cardiac diet
[2023-07-29 21:44] LABS: Lactic Acid 1.2 mmol/L (0.7-2.0)
[2023-07-29 22:00] VITALS: BP 149/69
[2023-07-29 23:01] VITALS: BP 167/98
[2023-07-30] VITALS (9 sets, daily range): BP systolic 148–193; BP diastolic 56–100; PULSE 62; O2SAT 98; BMI 20.5
--- NOTE | 2023-07-30 00:30 | PTCARENOTE ---
Received patient from ED via stretcher. Patient ambulated from stretcher to bed with rolling walker and assistance. Patient is AAOx3, forgetful, no complaints of pain. Oriented patient to room and placed call west within reach.
[2023-07-30] MEDS: REMERON 22.5 MG PO ×2 (01:07→21:19)
[2023-07-30] MEDS: NSS 1000 IV ×2 (01:07→17:23)
[2023-07-30] MEDS: SYNTHROID 88 MCG PO (01:10)
[2023-07-30] MEDS: ABILIFY 2 MG PO (07:31)
[2023-07-30] MEDS: JANUVIA 50 MG PO (07:31)
[2023-07-30] MEDS: OCUVITE SOFTGEL 1 CAP PO (07:31)
[2023-07-30] MEDS: DESENEX/MITRAZOL/ZEASORB 1 APPLIC TOPICAL ×2 (07:31→20:42)
[2023-07-30] MEDS: PROTONIX 40 MG PO (07:31)
[2023-07-30] MEDS: VITAMIN B-12 1000 MCG PO (07:31)
[2023-07-30] MEDS: IMDUR (EXTENDED RELEASE) 30 MG PO (07:31)
[2023-07-30] MEDS: TOPROL XL 50 MG PO (07:39)
[2023-07-30 09:02] LABS: % Basophils 0.6 % (0-2); % Eosinophils 1.4 % (0-6); % Immature Granulocytes 0.3 % (0-0.5); % Lymphocytes 38.6 % (20.5-51.1); % Neutrophils 51.1 % (42.2-75.2); Absolute Eosinophils 0.1 10^3/uL (0-0.7); Absolute Lymphocytes 2.5 10^3/uL (1.2-3.4); Absolute Monocytes 0.5 10^3/uL (0.1-0.6); Absolute Neutrophils 3.3 10^3/uL (1.4-6.5); Hematocrit 36.8 % (37.0-47.0); Hemoglobin 11.6 g/dL (12.0-16.0); Mean Corp Hgb Conc. 31.5 g/dL (33.0-37.0); Mean Corpuscular Volume 85.6 fL (81.0-99.0); Mean Platelet Volume 11.2 fL (7.4-10.4); Nucleated Red Blood Cells % 0 %; Platelet Count 221 10^3/uL (130-400); Red Cell Dist. Width 15.8 % (11.5-14.5); White Blood Cell Count 6.5 10^3/uL (4.8-10.8)
--- NOTE | 2023-07-30 09:22 | W.PN.HOSP.TC ---
Today's Communication/Plan
-
Initial urinalysis not that impressive for UTI will await culture results continue empiric antibiotic
More likely most her symptoms in relation to dehydration and WOLFGANG continue cautious hydration
Once the improvement we can resume Entresto
Digoxin will be reduced to every 48 hours based on renal status
Assessment / Plan
Assessment / Plan
83-year-old female with past medical history of atrial fibrillation, CAD status post CABG, stents x 6, CHF, likely permanent atrial fibrillation, hypertension, hypercholesteremia, diabetes, hypothyroidism, Alzheimer's dementia, presenting from
[facility] for weakness.� Patient does have a history of dementia diagnosed in November.� Since she was diagnosed for the flu here in June he has been increasingly weaker.� She has had 4 falls in the past 4 weeks and last slid
out of bed several days ago.� She has decreased appetite not eating and drinking as much.� She has lost weight.� She states that she has been incontinent of urine in the past few days but denies any burning.� Denies nausea vomiting or abdominal pain
or diarrhea although ER report states that she has been having chronic diarrhea for the past 4 months.
# Likely UTI
-UA shows 21-25 WBC, trace leukocyte esterase
-Check urine culture, blood culture
-Ceftriaxone
-PT/OT
# Acute kidney injury on CKD likely prerenal
-Creatinine currently 1.6
-Baseline creatinine of 1.2
-Gentle IV fluids
-Hold Entresto
-Hold Lasix
# Failure to thrive secondary to advancing Alzheimer's dementia
-Continue donepezil, aripiprazole, mirtazapine
CAD status post CABG
History of heart failure
-Continue isosorbide mononitrate
Likely permanent atrial fibrillation
-Continue digoxin/will need to reduce dose based on creatinine clearance
-Continue metoprolol
-Continue Xarelto
Essential hypertension
-Entresto held due to WOLFGANG
Hypercholesterolemia
-Continue statin
Type 2 diabetes
-Continue metformin
-Continue Januvia
Hypothyroidism
-Continue levothyroxine
-Hold metformin
GERD
-Continue omeprazole
Full code
DVT prophylaxis on Xarelto
cardiac diet
Anticipated Discharge: Within 24 hours
Subjective/Interval History
-
Date of Service: July 30, 2023
Pleasant in no acute distress/some confusion which is apparently her baseline does admit to having diminished oral intake in the last week or so
Objective Data
-
Labs:
Laboratory Results
07/30/23
07:33
WBC 6.5
Hgb 11.6 L
Hct 36.8 L
Plt Count 221
Sodium Pending
Potassium Pending
Chloride Pending
Carbon Dioxide Pending
BUN Pending
Creatinine Pending
Glucose Pending
Calcium Pending
Total Bilirubin Pending
AST Pending
ALT Pending
Alkaline Phosphatase Pending
Vital Signs:
Vital Signs
Temp Pulse Resp BP Pulse Ox
97.7 F 75 18 193/100 97
07/30/23 07:30 07/30/23 07:39 07/30/23 07:30 07/30/23 07:39 07/30/23 07:30
I&O
07/29/23 07/30/23 07/31/23
06:59 06:59 06:59
Intake Total 0 / 0
Output Total 200 / 200
Balance -200 / -200
Review of Systems
-
Unable to obtain full review of systems at this time due to: Dementia
History Source: Patient
Constitutional: Reports Weight Loss
EENT: Reports No Symptoms Reported
Respiratory: Reports No Symptoms
Cardiac: Reports No Symptoms
Abdomen/GI: Reports No Symptoms
Physical Exam
-
General: No Apparent Distress
HEENT: Normocephalic
Respiratory: Clear to Auscultation
Cardiac: Regular Rhythm and S1/S2
GI: Soft, Nontender and Nondistended
Neuro: Awake
Psych: Calm and Apparent Dementia
Data Reviewed
-
Total Time Spent with Patient (in minutes): 45
Labs: Labs Reviewed by me (Creatinine 1.6/1.1 baseline at last discharge in June)
[2023-07-30 09:45] LABS: ALT (SGPT) 14 U/L (0-35); AST (SGOT) 23 U/L (14-36); Albumin 3.9 g/dl (3.5-5.0); Alkaline Phosphatase 54 U/L (38-126); Blood Urea Nitrogen 21 mg/dl (7-17); Calcium 9.8 mg/dl (8.4-10.2); Carbon Dioxide 26 mmol/L (22-30); Chloride 102 mmol/L (98-107); Estimated Creatinine Clearance 30 ml/min; Glucose 83 mg/dl (70-99); Potassium 3.9 mmol/L (3.5-5.1); Sodium 139 mmol/L (135-145); Total Bilirubin 0.8 mg/dl (0.2-1.3); Total Protein 6.4 g/dl (6.3-8.2)
--- NOTE | 2023-07-30 17:19 | CM ---
CM following re: d/c planning
Chart reviewed
CM met with patient at bedside; IA completed
CM also deferred to admission assessment completed from June to make sure there weren't any changes since last admission
Pt does reside at [facility] in their memory care unit
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
Pt has no noted VN hx, has been to [facility] for SNF and has a r/w to assist with ambulation
Pt does have prescription coverage and medications are managed within the facility
Pt PCP-Jus Marie
CM will follow patient progress and assist with needs at d/c as indicated
PLAN; CM following for needs
[2023-07-30] MEDS: MAGNESIUM OXIDE 250 MG PO (17:23)
[2023-07-30] MEDS: LIPITOR 40 MG PO (17:23)
[2023-07-30] MEDS: XARELTO 15 MG PO (17:23)
[2023-07-30] MEDS: ARICEPT 10 MG PO (17:23)
[2023-07-30] MEDS: VITAMIN D3 (cholecalciferol) 25 MCG PO (17:23)
[2023-07-30] MEDS: ROCEPHIN 1000 MG IV (21:21)
[2023-07-30] MEDS: STERILE WATER FOR INJECTION 10 ML IV (21:21)
[2023-07-31] MEDS: SYNTHROID 176 MCG PO (05:51)
[2023-07-31 06:28] LABS: Hematocrit 35.7 % (37.0-47.0); Hemoglobin 11.4 g/dL (12.0-16.0); Mean Corp Hgb Conc. 31.9 g/dL (33.0-37.0); Mean Corpuscular Hgb 27.5 pg (27.0-31.0); Mean Corpuscular Volume 86.2 fL (81.0-99.0); Mean Platelet Volume 10.3 fL (7.4-10.4); Platelet Count 225 10^3/uL (130-400); Red Blood Cell Count 4.14 10^6/uL (4.20-5.40); Red Cell Dist. Width 15.6 % (11.5-14.5); White Blood Cell Count 8.7 10^3/uL (4.8-10.8)
[2023-07-31 06:51] LABS: Blood Urea Nitrogen 16 mg/dl (7-17); Calcium 9.4 mg/dl (8.4-10.2); Carbon Dioxide 26 mmol/L (22-30); Chloride 104 mmol/L (98-107); Estimated Creatinine Clearance 39 ml/min; Glucose 104 mg/dl (70-99); Potassium 3.7 mmol/L (3.5-5.1); Sodium 138 mmol/L (135-145)
[2023-07-31 07:41] VITALS: BP 126/78
[2023-07-31] MEDS: VITAMIN B-12 1000 MCG PO (09:06)
[2023-07-31] MEDS: OCUVITE SOFTGEL 1 CAP PO (09:06)
[2023-07-31] MEDS: PROTONIX 40 MG PO (09:06)
[2023-07-31] MEDS: ABILIFY 2 MG PO (09:06)
[2023-07-31] MEDS: JANUVIA 50 MG PO (09:06)
[2023-07-31] MEDS: IMDUR (EXTENDED RELEASE) 30 MG PO (09:06)
[2023-07-31] MEDS: TOPROL XL 50 MG PO (09:06)
[2023-07-31] MEDS: DESENEX/MITRAZOL/ZEASORB 1 APPLIC TOPICAL ×2 (09:07→21:12)
--- NOTE | 2023-07-31 09:41 | W.PN.HOSP.TC ---
Today's Communication/Plan
-
Medically stable for discharge if facility will take back over weekend
Would resume Entresto but continue to hold Lasix for now
Assessment / Plan
Assessment / Plan
83-year-old female with past medical history of atrial fibrillation, CAD status post CABG, stents x 6, CHF, likely permanent atrial fibrillation, hypertension, hypercholesteremia, diabetes, hypothyroidism, Alzheimer's dementia, presenting from
[facility] memory care for weakness.� Patient does have a history of dementia diagnosed in November.� Since she was diagnosed for the flu here in June he has been increasingly weaker.� She has had 4 falls in the past 4 weeks and last slid
out of bed several days ago.� She has decreased appetite not eating and drinking as much.� She has lost weight.� She states that she has been incontinent of urine in the past few days but denies any burning.� Denies nausea vomiting or abdominal pain
or diarrhea although ER report states that she has been having chronic diarrhea for the past 4 months.
# Likely UTI
-UA shows 21-25 WBC, trace leukocyte esterase
-Check urine culture, blood culture
-Ceftriaxone will discontinue
-Culture returned Enterococcus with 25,000 colony-forming
-PT/OT
# Acute kidney injury on CKD likely prerenal
-Creatinine currently 1.6
-Baseline creatinine of 1.2
-Gentle IV fluids
-Hold Entresto will resume at discharge
-Hold Lasix would hold on discharge till need
# Failure to thrive secondary to advancing Alzheimer's dementia
-Continue donepezil, aripiprazole, mirtazapine
CAD status post CABG
History of heart failure
-Continue isosorbide mononitrate
Likely permanent atrial fibrillation
-Continue digoxin/will need to reduce dose based on creatinine clearance
-Continue metoprolol
-Continue Xarelto
Essential hypertension
-Entresto held due to WOLFGANG
Hypercholesterolemia
-Continue statin
Type 2 diabetes
-Continue metformin
-Continue Mayuvia
Hypothyroidism
-Continue levothyroxine
-Hold metformin
GERD
-Continue omeprazole
Full code
DVT prophylaxis on Xarelto
cardiac diet
Anticipated Discharge: Today
Subjective/Interval History
-
Date of Service: July 31, 2023
Poor historian but in no acute distress seems to have tolerated meals and doing well as far as intake
Objective Data
-
Labs:
Laboratory Results
07/31/23
06:06
WBC 8.7
Hgb 11.4 L
Hct 35.7 L
Plt Count 225
Sodium 138
Potassium 3.7
Chloride 104
Carbon Dioxide 26
BUN 16
Creatinine 1.0
Glucose 104 H
Calcium 9.4
Vital Signs:
Vital Signs
Temp Pulse Resp BP Pulse Ox
98.7 F 62 16 126/78 97
07/31/23 07:41 07/31/23 09:06 07/31/23 07:41 07/31/23 09:06 07/31/23 07:41
I&O
07/30/23 07/31/23 08/01/23
06:59 06:59 06:59
Intake Total 0 / 0 420 / 420
Output Total 200 / 200
Balance -200 / -200 420 / 420
Review of Systems
-
Unable to obtain full review of systems at this time due to: Dementia
History Source: Patient
Constitutional: Reports No Symptoms
Respiratory: Reports No Symptoms
Cardiac: Reports No Symptoms
Physical Exam
-
General: No Apparent Distress
HEENT: Normocephalic
Respiratory: Clear to Auscultation
Cardiac: Regular Rhythm
GI: Soft, Nontender and Nondistended
Musculoskeletal: No Clubbing
Psych: Calm, Confused and Apparent Dementia
Data Reviewed
-
Total Time Spent with Patient (in minutes): 45
Labs: Labs Reviewed by me (Azotemia prerenal resolved/urine culture only grew out Enterococcus but 25,000 colonies only)
--- NOTE | 2023-07-31 10:01 | CM ---
CM spoke with Kirsty at [facility], checked with Director, unable to accept admission over the weekend, requested information be faxed to [phone] for medical review for Wednesday, attention to Kirsty or Collette. CM will fax clinical
information, will continue to follow for discharge planning needs.
Plan; return to [facility] for Wednesday, clinicals sent to facility.
[2023-07-31] MEDS: LANOXIN 125 MCG PO (11:47)
[2023-07-31 16:29] VITALS: BP 156/75
[2023-07-31] MEDS: XARELTO 15 MG PO (17:45)
[2023-07-31] MEDS: ARICEPT 10 MG PO (17:45)
[2023-07-31] MEDS: LIPITOR 40 MG PO (17:45)
[2023-07-31] MEDS: MAGNESIUM OXIDE 250 MG PO (17:45)
[2023-07-31] MEDS: VITAMIN D3 (cholecalciferol) 25 MCG PO (17:45)
[2023-07-31] MEDS: REMERON 22.5 MG PO (21:12)
[2023-07-31] MEDS: STERILE WATER FOR INJECTION IV (21:13)
[2023-07-31 23:11] VITALS: BP 175/80
[2023-07-31 23:54] VITALS: BP 168/76
[2023-08-01] MEDS: SYNTHROID 176 MCG PO (05:36)
[2023-08-01 06:00] VITALS: BMI 21.6
[2023-08-01 07:46] VITALS: BP 180/90
[2023-08-01] MEDS: PROTONIX 40 MG PO (08:39)
[2023-08-01] MEDS: ABILIFY 2 MG PO (08:39)
[2023-08-01] MEDS: JANUVIA 50 MG PO (08:40)
[2023-08-01] MEDS: IMDUR (EXTENDED RELEASE) 30 MG PO (08:40)
[2023-08-01] MEDS: VITAMIN B-12 1000 MCG PO (08:40)
[2023-08-01] MEDS: TOPROL XL 50 MG PO (08:40)
[2023-08-01] MEDS: OCUVITE SOFTGEL 1 CAP PO (08:40)
[2023-08-01] MEDS: DESENEX/MITRAZOL/ZEASORB 1 APPLIC TOPICAL ×2 (08:44→19:41)
--- NOTE | 2023-08-01 08:58 | W.PN.HOSP.TC ---
Today's Communication/Plan
-
Medically stable for discharge
Facility could not take over weekend in spite of bed hold
See transcribed ordered
for discharge would continue to hold Lasix until nee restart Entresto d
Assessment / Plan
Assessment / Plan
83-year-old female with past medical history of atrial fibrillation, CAD status post CABG, stents x 6, CHF, likely permanent atrial fibrillation, hypertension, hypercholesteremia, diabetes, hypothyroidism, Alzheimer's dementia, presenting from
[facility] memory care for weakness.� Patient does have a history of dementia diagnosed in November.� Since she was diagnosed for the flu here in June he has been increasingly weaker.� She has had 4 falls in the past 4 weeks and last slid
out of bed several days ago.� She has decreased appetite not eating and drinking as much.� She has lost weight.� She states that she has been incontinent of urine in the past few days but denies any burning.� Denies nausea vomiting or abdominal pain
or diarrhea although ER report states that she has been having chronic diarrhea for the past 4 months.
# Likely UTI
-UA shows 21-25 WBC, trace leukocyte esterase
-Check urine culture, blood culture
-Ceftriaxone will discontinue
-Culture returned Enterococcus with 25,000 colony-forming
-PT/OT
# Acute kidney injury on CKD likely prerenal
-Creatinine currently 1.6
-Baseline creatinine of 1.2
-Gentle IV fluids
-Hold Entresto will resume at discharge
-Hold Lasix would hold on discharge till need
# Failure to thrive secondary to advancing Alzheimer's dementia
-Continue donepezil, aripiprazole, mirtazapine
CAD status post CABG
History of heart failure
-Continue isosorbide mononitrate
Likely permanent atrial fibrillation
-Continue digoxin/will need to reduce dose based on creatinine clearance
-Continue metoprolol
-Continue Xarelto
Essential hypertension
-Entresto held due to WOLFGANG
Hypercholesterolemia
-Continue statin
Type 2 diabetes
-Continue metformin
-Continue Januvia
Hypothyroidism
-Continue levothyroxine
-Hold metformin
GERD
-Continue omeprazole
Full code
DVT prophylaxis on Xarelto
cardiac diet
Anticipated Discharge: Within 24 hours
Subjective/Interval History
-
Date of Service: August 01, 2023
No distress no complaints disappointed she cannot be taken back to her facility yesterday
Objective Data
-
Vital Signs:
Vital Signs
Temp Pulse Resp BP Pulse Ox
97.7 F 66 16 180/90 98
08/01/23 07:46 08/01/23 08:40 08/01/23 07:46 08/01/23 08:40 08/01/23 07:46
I&O
07/31/23 08/01/23 08/02/23
06:59 06:59 06:59
Intake Total 420 / 420 760 / 760
Balance 420 / 420 760 / 760
Review of Systems
-
Unable to obtain full review of systems at this time due to: Dementia
History Source: Patient
All other systems: Not reviewed unless documented
Physical Exam
-
General: Well Developed
HEENT: Normocephalic
Respiratory: Clear to Auscultation
Cardiac: Regular Rhythm
GI: Soft
Musculoskeletal: No Clubbing and No Cyanosis
Neuro: Awake and Alert
Data Reviewed
-
Total Time Spent with Patient (in minutes): 45
[2023-08-01 09:48] VITALS: BMI 21.6
[2023-08-01] MEDS: ENTRESTO 24 MG/26 MG 1 TAB PO ×2 (10:25→19:40)
--- NOTE | 2023-08-01 14:47 | CM ---
Patient seen beside with son, Guzman. CM discussed facility not able to accept patient for discharge until Wednesday. Guzman reports he will be patients transportation and asked for an update tomorrow on discharge confirmation. CM will continue to follow
for discharge planning needs.
Plan; return to [facility] for Wednesday, clinicals sent to facility, call facility to confirm acceptance of return of patient.
[2023-08-01 15:18] VITALS: BP 177/98
--- NOTE | 2023-08-01 15:35 | PTCARENOTE ---
Pt awake and alert, oriented to self/birthdate/year; forgetful; repeatedly asking to 'go home' to previous facility. YOUNGBLOOD slowly; OOB to BR/chair with assist x1, lincoln well, no c/o weakness/dizziness. VSS. On room air- pulseox 98%, no c/o SOB. Abd
soft, rounded, lincoln PO; appetite fair. Incont urine/voids in BR; wears Depends. Resting in chair at present, no c/o. Will continue to monitor.
[2023-08-01] MEDS: ARICEPT 10 MG PO (17:34)
[2023-08-01] MEDS: MAGNESIUM OXIDE 250 MG PO (17:34)
[2023-08-01] MEDS: VITAMIN D3 (cholecalciferol) 25 MCG PO (17:34)
[2023-08-01] MEDS: LIPITOR 40 MG PO (17:34)
[2023-08-01] MEDS: XARELTO 15 MG PO (17:34)
[2023-08-01] MEDS: STERILE WATER FOR INJECTION IV (19:52)
[2023-08-01] MEDS: REMERON 22.5 MG PO (21:55)
[2023-08-01 23:54] VITALS: BP 162/72
[2023-08-02 06:00] VITALS: BMI 20.7
[2023-08-02] MEDS: SYNTHROID 88 MCG PO (06:03)
[2023-08-02 07:20] VITALS: BP 182/74
[2023-08-02] MEDS: ENTRESTO 24 MG/26 MG 1 TAB PO (08:18)
[2023-08-02] MEDS: IMDUR (EXTENDED RELEASE) 30 MG PO (08:18)
[2023-08-02] MEDS: OCUVITE SOFTGEL 1 CAP PO (08:18)
[2023-08-02] MEDS: ABILIFY 2 MG PO (08:19)
[2023-08-02] MEDS: VITAMIN B-12 1000 MCG PO (08:19)
[2023-08-02] MEDS: JANUVIA 50 MG PO (08:19)
[2023-08-02] MEDS: TOPROL XL 50 MG PO (08:19)
[2023-08-02] MEDS: PROTONIX 40 MG PO (08:19)
[2023-08-02] MEDS: DESENEX/MITRAZOL/ZEASORB 1 APPLIC TOPICAL (08:24)
[2023-08-02 08:40] VITALS: BP 192/91; PULSE 60; O2SAT 98
--- NOTE | 2023-08-02 11:28 | W.PN.HOSP.TC ---
Addendum entered and electronically signed by Mike Zaidi MD 08/03/23 08:51:
More than 30 minutes spent in discharge including
Final examination of the patient
Summarizing hospital stay
Instructions for continuing care to all relevant caregivers
Preparation of discharge records, prescriptions, and referral forms
Total time spent (in minutes): 42
Original Note:
Today's Communication/Plan
-
await placement
Assessment / Plan
Assessment / Plan
83-year-old female with past medical history of atrial fibrillation, CAD status post CABG, stents x 6, CHF, likely permanent atrial fibrillation, hypertension, hypercholesteremia, diabetes, hypothyroidism, Alzheimer's dementia, presenting from
[facility] memory care for weakness.� Patient does have a history of dementia diagnosed in November.� Since she was diagnosed for the flu here in June he has been increasingly weaker.� She has had 4 falls in the past 4 weeks and last slid
out of bed several days ago.� She has decreased appetite not eating and drinking as much.� She has lost weight.� She states that she has been incontinent of urine in the past few days but denies any burning.� Denies nausea vomiting or abdominal pain
or diarrhea although ER report states that she has been having chronic diarrhea for the past 4 months.
#Enterococcus uti
-UA shows 21-25 WBC, trace leukocyte esterase
-Blood culture negative.
-Ceftriaxone received and Dced
-Culture returned Enterococcus with 25,000 colony-forming
# Acute kidney injury on CKD likely prerenal
-Creatinine downtrended
-s/p IV fluids
# Failure to thrive secondary to advancing Alzheimer's dementia
-Continue donepezil, aripiprazole, mirtazapine
CAD status post CABG
History of heart failure
-Continue isosorbide mononitrate/lasix/entresto
Likely permanent atrial fibrillation
-Continue digoxin/will need to reduce dose based on creatinine clearance
-Continue metoprolol
-Continue Xarelto
Essential hypertension
-Entresto/lasix/toprol
Hypercholesterolemia
-Continue statin
Type 2 diabetes
-Continue metformin
-Continue Januvia
Hypothyroidism
-Continue levothyroxine
-Hold metformin
GERD
-Continue omeprazole
Full code
DVT prophylaxis on Xarelto
cardiac diet
Anticipated Discharge: Today
Subjective/Interval History
-
Date of Service: August 02, 2023
afebrile
tolerating diet
Objective Data
-
Vital Signs:
Vital Signs
Temp Pulse Resp BP Pulse Ox
97.1 F 54 16 182/74 97
08/02/23 07:20 08/02/23 07:20 08/02/23 07:20 08/02/23 07:20 08/02/23 07:20
I&O
08/01/23 08/02/23 08/03/23
06:59 06:59 06:59
Intake Total 760 / 760 640 / 640
Balance 760 / 760 640 / 640
Physical Exam
-
General: Well Developed and No Apparent Distress
HEENT: Normocephalic
Respiratory: Clear to Auscultation
Cardiac: Regular Rhythm and S1/S2
GI: Soft, Nontender, Nondistended and Normal Bowel Sounds
Musculoskeletal: No Clubbing and No Cyanosis
Neuro: Awake, Alert and No Motor Deficits
Psych: Calm
[2023-08-02] MEDS: LANOXIN 125 MCG PO (12:16)
[2023-08-02] MEDS: VISBIOME 2 CAP PO (12:18)
[2023-08-02] MEDS: AMOXIL 500 MG PO (12:18)
--- NOTE | 2023-08-02 12:51 | W.DCSUMMARY ---
Discharge Summary
Discharge Data
Date of Admission: 07/29/23
Date of Discharge: 08/02/23
-
Pending Results: No
Hospital Course
83-year-old female with past medical history of atrial fibrillation, CAD status post CABG, stents x 6, CHF, likely permanent atrial fibrillation, hypertension, hypercholesteremia, diabetes, hypothyroidism, Alzheimer's dementia, presenting from
[facility] for weakness. Patient was found to have Enterococcus UTI and was transition from IV ceftriaxone to p.o. amoxicillin on discharge. Patient also with acute kidney injury which resolved with IV fluid resuscitation.
Patient Entresto and Lasix was restarted. Patient was eval by PT and OT. Patient creatinine trended down from 1.6-1 on discharge. Patient blood pressure was elevated likely secondary to diuretics being held in the setting of WOLFGANG. Patient was
seen by physical and Occupational Therapy. Patient be discharged to senior living facility.
Discharge Plan
-
Patient Disposition: Fdc/SNF
Discharge Diagnosis/Procedures: Acute dehydration
Acute kidney injury resolved
Enterococcus UTI
Condition: Fair
Diet: As tolerated
Activity: With assistance and As tolerated
Driving Restrictions: As prior to admission
Referrals:
Jus Marie MD [Family Provider] - in less than 1 week
Additional Discharge Medication Instructions: Hold Lasix for now resume Entresto
Prescriptions:
New
amoxicillin 500 mg Capsule
500 mg PO Q8H Qty: 14 0RF
Lactobac/Bifidobac [Visbiome]
2 cap PO DAILY 7 Days 0RF
Continued
atorvastatin 40 mg tablet
40 mg PO QPM
metformin 500 mg tablet
500 mg PO BID@0800,1700
donepezil 10 mg tablet
10 mg PO QPM
isosorbide mononitrate 30 mg tablet extended release 24 hr
30 mg PO DAILY
cyanocobalamin (vitamin B-12) 1,000 mcg Tablet
1,000 mcg PO DAILY
acetaminophen 650 mg tablet extended release
650 mg PO Q6H PRN (Reason: FEVER)
levothyroxine 88 mcg tablet
88 mcg PO MOTUWETHFR
levothyroxine 88 mcg tablet
176 mcg PO SUSA
digoxin 125 mcg (0.125 mg) tablet
125 mcg PO Q48H
furosemide 20 mg tablet
20 mg PO DAILY
Hold Instructions: Resume on 08/04/23. Can resume if starts having fluid retention and/or peripheral edema
mirtazapine 15 mg tablet
22.5 mg PO HS
nystatin [Nystop] 100,000 unit/gram powder
1 applic TOPICAL Q6HPRN PRN (Reason: ABD FOLDS/BREASTS)
Rx Instructions:
apply to abd folds/breasts
nystatin [Nystop] 100,000 unit/gram powder
1 applic TOPICAL BID
Rx Instructions:
apply to abd folds/breasts
magnesium oxide 250 mg magnesium tablet
250 mg PO QPM
aripiprazole 2 mg tablet
2 mg PO DAILY
Januvia 50 mg tablet
50 mg PO DAILY
PreserVision AREDS 4,296 mcg-226 mg-90 mg capsule
1 cap PO DAILY
Xarelto 15 mg tablet
15 mg PO QPM
Entresto 24-26 mg tablet
1 tab PO Q12H
metoprolol succinate 50 mg Tablet Extended Release 24 Hr
50 mg PO DAILY Qty: 0 0RF
acetaminophen [Tylenol] 325 mg Tablet
650 mg PO Q4HPRN PRN (Reason: MILD PAIN)
cholecalciferol (vitamin D3) [Vitamin D3] 25 mcg (1,000 unit) Tablet
25 mcg PO QPM
omeprazole 20 mg Tablet,Delayed Release (Dr/Ec)
20 mg PO DAILY
Discharge Orders:
Discharge Patient (As Directed); Ordered 08/02/23
Ordered By: Mike Zaidi
[2023-08-02] MEDS: APRESOLINE 10 MG IV (13:44)
[2023-08-02 15:30] VITALS: BP 161/67
--- NOTE | 2023-08-02 16:40 | CM ---
CM following re: d/c planning
Chart reviewed
Pt is medically stable for d/c and will return to [facility]
CM spoke with the patient's son Guzman who has agreed to transport he patient at time of d/c
CM spoke with Michelle Cullen/hospice social worker at the facility who provided information to initiate the insurance auth.
CM was provided the following reference#[id number] and 39 pages of clinicals were faxed to
Per Michelle, the patient is able to return to the facility while the authorization is pending since she is a permanent resident of the [facility]
No additional d/c needs to note
PLAN; d/c to [facility]
Report: [phone] ext. [phone]
== END 2023-08-02 16:33 ==
LOC: 4 EAST ACU 22:27
PROVIDERS: Internal Medicine; Nurse Practitioner; ADMITTING PHYSICIAN Hospitalist; ATTENDING PHYSICIAN Hospitalist; EMERGENCY PHYSICIAN Emergency Medicine; FAMILY PHYSICIAN Internal Medicine
DX: N39.0 Urinary tract infection, site not specified (principal); B95.2 Enterococcus as the cause of diseases classified elsewhere; E86.0 Dehydration; R53.1 Weakness; N17.9 Acute kidney failure, unspecified; R62.7 Adult failure to thrive; G30.9 Alzheimer's disease, unspecified; F02.80 Dementia in other diseases classified elsewhere, unspecified severity, without behavioral disturbance, psychotic disturbance, mood disturbance, and anxiety; E11.22 Type 2 diabetes mellitus with diabetic chronic kidney disease; N18.9 Chronic kidney disease, unspecified; E78.00 Pure hypercholesterolemia, unspecified; E03.9 Hypothyroidism, unspecified; I48.91 Unspecified atrial fibrillation; R07.9 Chest pain, unspecified; I25.10 Atherosclerotic heart disease of native coronary artery without angina pectoris; I50.9 Heart failure, unspecified; I13.0 Hypertensive heart and chronic kidney disease with heart failure and stage 1 through stage 4 chronic kidney disease, or unspecified chronic kidney disease; M16.0 Bilateral primary osteoarthritis of hip; M46.1 Sacroiliitis, not elsewhere classified; W06.XXXA Fall from bed, initial encounter; Y93.9 Activity, unspecified; Y92.122 Bedroom in nursing home as the place of occurrence of the external cause; R29.6 Repeated falls; I48.21 Permanent atrial fibrillation; Z87.891 Personal history of nicotine dependence; Z95.5 Presence of coronary angioplasty implant and graft; Z95.1 Presence of aortocoronary bypass graft; Z79.01 Long term (current) use of anticoagulants; Z79.84 Long term (current) use of oral hypoglycemic drugs; K21.9 Gastro-esophageal reflux disease without esophagitis; Z86.73 Personal history of transient ischemic attack (TIA), and cerebral infarction without residual deficits; Z98.1 Arthrodesis status
CPT/HCPCS: 51701; 70450; 71046; 72220; 80048; 80053; 81003; 81015; 83605; 85025; 85027; 87040; 87070; 87077; 87086; 87186; 93005; 96374; 97116; 97162; 97166; 99285; G0378

== ENCOUNTER 2024-05-21 18:10 | Emergency (ER) | payer OTHER, SELFPAY ==
[2024-05-21 18:20] VITALS: BP 150/88
--- NOTE | 2024-05-21 18:44 | ED.GENMED ---
Addendum entered and electronically signed by Cosmo Mckeon PA-C 05/25/24 07:09:
Urine culture shows E. coli sensitive to Omnicef. No indication for any intervention or change
Original Note:
History of Present Illness
General
Chief Complaint: Fall
Source: other (alf)
Exam Limitations: dementia (Slight dementia)
Time Seen by Provider: 05/21/24 18:12
History of Present Illness
History of Present Illness:
This is a 83 year old female that is brought in by ambulance with c/o fall. Told that the patient fell backward hitting her head. Stats that there was no LOC. Patient Denies any fever, chills, chest pain, SOB, abd pain, nausea, vomiting, diarrhea,
headache, dizziness, urinary burning.
Past History
Past History
ED Past Medical History: Arrthythmia (afib), CHF, GERD, HTN, Hypercholesterolemia, NIDDM, Hypothyroidism, Psychiatric (Depression) and Other (Alzheimer's Dementia, UTI)
ED Past Surgical History: Cardiac (CABG 6 vessels, Stents X 6,), Gynecological (Hysterectomy) and Orthopedic (Back surgery)
Social History
Tobacco: Former smoker
Alcohol: None
Personal:
Living: [facility] ([facility])
Review of Systems
Review of Systems
All Other Systems: ROS reviewed and negative except as documented in HPI and ROS
Constitutional: Reports no symptoms; Denies fever or chills
EENT: Reports no symptoms
Respiratory: Reports no symptoms; Denies cough or trouble breathing
Cardiac: Reports no symptoms; Denies chest pain
ABD/GI: Reports no symptoms; Denies abdominal pain, nausea, vomiting or diarrhea
: Reports no symptoms; Denies dysuria, frequency or urgency
Musculoskeletal: Reports no symptoms
Skin: Reports no symptoms
Neurological: Reports no symptoms; Denies dizzy or headache
Psychiatric: Reports no symptoms
Phy Exam
General Physical Exam
General Presentation: no apparent distress
General age: appears stated age
General Skin: warm and dry
General Habitus: elderly
General Mental: usual mental status (albe to answer some questions about herself)
General Hydration: appears well hydrated
ENT Exam
ENT Exam: TM's normal, pharynx normal and neck supple
Eye Exam
Eye Exam: EOMI
Cardiovascular Exam
Cardiovascular Exam: no edema, normal peripheral pulses and irregularly irregular
Pulmonary Exam
Pulmonary Exam: lungs clear, no respiratory distress, no rales, chest non tender, no crackles, no rhonchi, no wheezing and no cough
Gastrointestinal Exam
Gastrointestinal Exam: normal bowel sounds, non tender, soft, no organomegaly, no pulsatile mass and non distended
Musculoskeletal Exam
Musculoskeletal Exam: full ROM and no edema
Skin Exam
Skin Exam: normal color, warm/dry, no rash and no petechia
Psychiatric Exam
Psychiatric Exam: normal mood/affect
Course
Orders/Labs/Results
Orders:
Orders
05/21/24 18:24
CT Cervical Spine W/o Iv Contr Urgent
Comment:
Reason For Exam: fall backward
Straight cath- Treatment ONCE
05/21/24 18:25
CT Head W/o Iv Contrast Urgent
Comment:
Reason For Exam: fall back hitting head
05/21/24 18:43
Complete Blood Count/With Diff Urgent
Comprehensive Metabolic Panel Urgent
05/21/24 18:51
Electrocardiogram (*1) Urgent
Reason for Study: Other
Other Reason for Exam: fall
EKG- Treatment ONCE
05/21/24 18:53
Urinalysis Reflex To Culture Urgent
Date Specimen was Collected: 05/21/24
Time Specimen was Collected: 18:45
Urine Microscopic Reflex Cult Urgent
Urine Culture Urgent
ALANNA Source: U
Specimen Description:
Date Specimen was Collected: 05/21/24
Time Specimen was Collected: 18:45
05/21/24 19:36
0.9% Sodium Chloride 500 ml [Nss] 500 ml IV BOLUS
05/21/24 19:42
CefTRIAXone [Rocephin] 1,000 mg IV NOW STA
Abnormal Lab Results
05/21/24 05/21/24
18:43 18:53
RBC 3.81 L 10^6/uL
(4.20-5.40)
Hgb 9.4 L g/dL
(12.0-16.0)
Hct 31.1 L %
(37.0-47.0)
MCH 24.7 L pg
(27.0-31.0)
MCHC 30.2 L g/dL
(33.0-37.0)
RDW 16.6 H %
(11.5-14.5)
Absolute Monos (auto) 0.7 H 10^3/uL
(0.1-0.6)
BUN 33 H mg/dl
(7-17)
Creatinine 1.4 H mg/dL
(0.6-1.0)
Glucose 156 H mg/dl
(70-99)
Ur Occult Blood Reflex 1+ A
(Negative)
Urine Nitrite (Reflex) Positive A
(Negative)
Leukocyte Esterase Rfl 2+ A
(Negative)
Urine WBC (Reflex) >100 A /HPF
(0-5)
Urine Bacteria (Reflex) Moderate A
(Negative)
05/21/24 18:43
05/21/24 18:43
H/H low when compared to prior labs, Dehydration. Hyperglycemia. Urine positive for infection.
Vital Signs
Initial and Last Documented VS:
Initial Vital Signs
Pulse Resp Pulse Ox
79 17 98
05/21/24 18:18 05/21/24 18:18 05/21/24 18:18
Last Documented Vital Signs
Temp Pulse Resp BP Pulse Ox
98.9 F 74 16 119/70 97
05/21/24 18:20 05/21/24 19:45 05/21/24 19:45 05/21/24 19:00 05/21/24 19:45
MDM/Problems Addressed
Differential Diagnosis Includes:
accidental fall, UTI
MDM/Problems Addressed:
This is a 83 year old female that comes in with c/o fall. Told that patient fell backward hitting her head. Patient is able to answer questions about herself
Will check labs, CT head and neck and get Uriine.
Patient was treated for a UTI. Will discharge back to then [facility] on antibiotics. Patient to return with any concerns.
Patient was able to get up out of bed and ambulate to the will slight assist.
Chronic conditions affecting care:
Slight Dementia, History of UTI
Acute Exacerbation and/or Progression of Chronic Illness:
Dementia
*Radiology
Radiology exam reviewed: radiology read reviewed (CT head-No acute intracranial abnormality noted. Severe atrophy. stable. CT cervical spine-NO evidence of acute osseous injury of the cervical spine. straightening of the normal cervical spinal
lordosis. This can be seen with muscular spasm. Multilevel degenerative disc disease as described above. )
*Pulse Oximetry
Patient hypoxic: no
*Heel Wheeler Interpretation
Rate: normal
Heart Rate: 88
Rhythm: a-fib
*Critical Care Note
Total Time (30-74mins, 75-104mins- exclusive of procedures): Not Applicable
ED Attending Note
-
Portions of this chart may have been created with voice recognition software.� Occasional wrong word or��sound alike� substitutions may have occurred due to the inherent limitations of voice recognition software.
Discharge Plan
Departure
Patient Disposition: Home (Routine Discharge)
Date of Disposition: 05/21/24
Time of Disposition: 20:36
Patient with high blood pressure during this ER visit?: No
Condition: Good
Covid-19: Not Applicable
Discharge Problem:
Urinary tract infection, Accidental fall
Instructions: Urinary tract infections in adults, Preventing falls in adults
Prescriptions:
New
cefdinir 300 mg capsule
300 mg PO BID Qty: 14 0RF
No Action
atorvastatin 40 mg tablet
40 mg PO QPM
metformin 500 mg tablet
500 mg PO BID@0800,1700
donepezil 10 mg tablet
10 mg PO QPM
isosorbide mononitrate 30 mg tablet extended release 24 hr
30 mg PO DAILY
cyanocobalamin (vitamin B-12) 1,000 mcg Tablet
1,000 mcg PO DAILY
acetaminophen 650 mg tablet extended release
650 mg PO Q6H PRN (Reason: FEVER)
levothyroxine 88 mcg tablet
88 mcg PO MOTUWETHFR
levothyroxine 88 mcg tablet
176 mcg PO SUSA
digoxin 125 mcg (0.125 mg) tablet
125 mcg PO Q48H
furosemide 20 mg tablet
20 mg PO DAILY
mirtazapine 15 mg tablet
22.5 mg PO HS
nystatin [Nystop] 100,000 unit/gram powder
1 applic TOPICAL Q6HPRN PRN (Reason: ABD FOLDS/BREASTS)
Rx Instructions:
apply to abd folds/breasts
nystatin [Nystop] 100,000 unit/gram powder
1 applic TOPICAL BID
Rx Instructions:
apply to abd folds/breasts
magnesium oxide 250 mg magnesium tablet
250 mg PO QPM
aripiprazole 2 mg tablet
2 mg PO DAILY
Januvia 50 mg tablet
50 mg PO DAILY
PreserVision AREDS 4,296 mcg-226 mg-90 mg capsule
1 cap PO DAILY
Xarelto 15 mg tablet
15 mg PO QPM
Entresto 24-26 mg tablet
1 tab PO Q12H
metoprolol succinate 50 mg Tablet Extended Release 24 Hr
50 mg PO DAILY Qty: 0 0RF
acetaminophen [Tylenol] 325 mg Tablet
650 mg PO Q4HPRN PRN (Reason: MILD PAIN)
cholecalciferol (vitamin D3) [Vitamin D3] 25 mcg (1,000 unit) Tablet
25 mcg PO QPM
omeprazole 20 mg Tablet,Delayed Release (Dr/Ec)
20 mg PO DAILY
amoxicillin 500 mg Capsule
500 mg PO Q8H Qty: 14 0RF
Lactobac/Bifidobac [Visbiome]
2 cap PO DAILY 7 Days 0RF
Referrals:
Jus Marie MD [Family Provider] - Call in 1-3 days for appt
Activity Restrictions/Additional Instructions:
As discussed, you have a urinary tract infection. CT of the head and neck is negative for any acute process. Please increase patient water intake to 8-8oz glasses daily. Follow up with the family doctor for recheck. Patient was given IV
antibiotic here and can start her oral prescription tomorrow. IF YOU HAVE ANY OTHER CONCERNS PLEASE RETURN TO THE EMERGENCY ROOM.
Interventions
Interventions:
*Risk Screen - Suicide Last Done: 05/21/24 18:34
*General Assessment Last Done: 05/21/24 18:34
*Neglect/Abuse Screening Last Done: 05/21/24 18:34
ED- Fall Risk Assessment Last Done: 05/21/24 18:34
*ED COVID-19 Vaccine History Last Done: 05/21/24 18:34
ED-Musculoskeletal Assessment Last Done: 05/21/24 19:13
ED- Neurological Assessment Last Done: 05/21/24 19:13
ED-Skin Assessment Last Done: 05/21/24 19:13
Discharge Date and Time
Print Language: ICELANDIC
[2024-05-21 18:55] LABS: % Basophils 0.4 % (0-2); % Immature Granulocytes 0.3 % (0-0.5); % Lymphocytes 32.3 % (20.5-51.1); % Monocytes 9.2 % (1.7-9.3); % Neutrophils 55.8 % (42.2-75.2); Absolute Eosinophils 0.2 10^3/uL (0-0.7); Absolute Lymphocytes 2.6 10^3/uL (1.2-3.4); Absolute Monocytes 0.7 10^3/uL (0.1-0.6); Absolute Neutrophils 4.4 10^3/uL (1.4-6.5); Hematocrit 31.1 % (37.0-47.0); Hemoglobin 9.4 g/dL (12.0-16.0); Mean Corp Hgb Conc. 30.2 g/dL (33.0-37.0); Mean Corpuscular Hgb 24.7 pg (27.0-31.0); Mean Corpuscular Volume 81.6 fL (81.0-99.0); Mean Platelet Volume 8.9 fL (7.4-10.4); Nucleated Red Blood Cells % 0 %; Platelet Count 211 10^3/uL (130-400); Red Blood Cell Count 3.81 10^6/uL (4.20-5.40); Red Cell Dist. Width 16.6 % (11.5-14.5)
[2024-05-21 18:59] LABS: Urine Albumin Trace (Neg - Trace); Urine Bilirubin Negative (Negative); Urine Character Clear (Clear); Urine Color Yellow; Urine Glucose Negative (Negative); Urine Ketone Negative (Negative); Urine Leukocyte 2+ (Negative); Urine Nitrite Positive (Negative); Urine Occult Blood 1+ (Negative); Urine Urobilinogen Negative (Neg - 1+)
[2024-05-21 19:00] VITALS: BP 119/70
[2024-05-21 19:07] LABS: ALT (SGPT) 29 U/L (0-35); AST (SGOT) 36 U/L (14-36); Albumin 3.7 g/dl (3.5-5.0); Alkaline Phosphatase 55 U/L (38-126); Blood Urea Nitrogen 33 mg/dl (7-17); Calcium 8.7 mg/dl (8.4-10.2); Carbon Dioxide 28 mmol/L (22-30); Chloride 102 mmol/L (98-107); Glucose 156 mg/dl (70-99); Potassium 4.5 mmol/L (3.5-5.1); Sodium 137 mmol/L (135-145); Total Bilirubin 0.4 mg/dl (0.2-1.3); Total Protein 6.4 g/dl (6.3-8.2); eGFR 37.33
--- NOTE | 2024-05-21 19:17 | EDRN ---
IV site wrapped in ramila to protect it as pt is confused w/ history of dementia. Small bump noted at base of L side of posterior head.
[2024-05-21 19:38] LABS: Urine Bacteria Moderate (Negative); Urine Red Blood Cell 0-2 /HPF (0-2); Urine Squamous Cell 0-2 /LPF (Few); Urine White Cell >100 /HPF (0-5)
[2024-05-21] MEDS: NSS 500 IV (19:40)
[2024-05-21] MEDS: ROCEPHIN 1000 MG IV (19:45)
[2024-05-21 20:00] VITALS: BP 154/85
== END 2024-05-21 21:53 | disposition home or self-care (01) ==
LOC: EMR 18:10
PROVIDERS: Clinical Nurse Specialist Family Health; EMERGENCY PHYSICIAN Student in an Organized Health Care Education/Training Program; FAMILY PHYSICIAN Internal Medicine
DX: N39.0 Urinary tract infection, site not specified (principal); S09.90XA Unspecified injury of head, initial encounter; W19.XXXA Unspecified fall, initial encounter; Z87.891 Personal history of nicotine dependence; Z87.440 Personal history of urinary (tract) infections
CPT/HCPCS: 99285; 96374; 96361 ×2; 70450; 72125; 80053; 81003; 81015; 85025; 87077; 87086; 87186; 93005

== ENCOUNTER 2024-09-10 09:11 | Inpatient (IN) | payer OTHER, SELFPAY ==
[2024-09-10] VITALS (14 sets, daily range): BP systolic 132–159; BP diastolic 45–85; PULSE 84; O2SAT 97
[2024-09-10 06:20] LABS: Glucose - Point of Care 154 mg/dl (70-99)
--- NOTE | 2024-09-10 06:23 | ED.CVA ---
History of Present Illness
General
Chief Complaint: CVA/TIA Symptoms
Source: patient, records and ambulance crew
Exam Limitations: altered mental status
Time Seen by Provider: 09/10/24 06:20
Nursing documentation reviewed up to this point in time: agreed with
Onset of Stroke Symptoms
Onset of symptoms known: No
Time pt last seen normal is known: No
History of Present Illness
History of Present Illness:
84-year-old female dementia [facility] patient [facility] on [facility] found by staff this morning when she awoken with left-sided weakness and confusion EMS was called left-sided weakness improved, prehospital stroke alert called, no noted trauma my
evaluation she does globally weak confused apparently new for her
Past History
Past History
ED Past Medical History: Arrthythmia (afib), CHF, GERD, HTN, Hypercholesterolemia, NIDDM, Hypothyroidism, Psychiatric (Depression) and Other (Alzheimer's Dementia, UTI)
ED Past Surgical History: Cardiac (CABG 6 vessels, Stents X 6,), Gynecological (Hysterectomy) and Orthopedic (Back surgery)
Social History
Tobacco: Former smoker
Alcohol: None
Personal:
Living: [facility] ([facility])
Phy Exam
Physical Exam
Physical Exam:
Physical Exam
General: Chronically ill confused elderly
Neck: No tongue bite
Heart: Regular
Lungs: no acute respiratory distress. Occasional cough
Abdomen: Soft
Neuro: Confused eyes open follows commands globally weak
Skin: no rash
Psychiatric: Flat
Extremities: no edema.
Course
Orders/Labs/Results
Orders:
Orders
09/10/24 06:17
Electrocardiogram (*1) Urgent
Reason for Study: TIA/Stroke
09/10/24 06:18
CT HEAD STROKE ALERT W/o Cont Stat
Reason For Exam: R/O CVA
09/10/24 06:19
EKG- Treatment ONCE
09/10/24 06:21
Straight cath- Treatment ONCE
Urinalysis Reflex To Culture Urgent
Date Specimen was Collected: 09/10/24
Time Specimen was Collected: 07:02
09/10/24 06:25
Complete Blood Count/With Diff Urgent
Comprehensive Metabolic Panel Urgent
NT-proBNP Urgent
Troponin I Urgent
09/10/24 06:32
CT HEAD/NECK ANG STROKE ALERT Urgent
Reason For Exam: stroke
09/10/24 07:08
NEUROLOGY CONSULT Routine
Consulting Provider: Olegario Lane
Was physician already notified: Yes
Abnormal Lab Results
09/10/24 09/10/24
06:18 06:25
RBC 3.74 L 10^6/uL
(4.20-5.40)
Hgb 9.7 L g/dL
(12.0-16.0)
Hct 30.5 L %
(37.0-47.0)
MCH 25.9 L pg
(27.0-31.0)
MCHC 31.8 L g/dL
(33.0-37.0)
RDW 16.0 H %
(11.5-14.5)
Absolute Monos (auto) 0.9 H 10^3/uL
(0.1-0.6)
Lymphocytes % 15.3 L %
(20.5-51.1)
Monocytes % 9.9 H %
(1.7-9.3)
BUN 29 H mg/dl
(7-17)
Creatinine 1.4 H mg/dL
(0.6-1.0)
Glucose 150 H mg/dl
(70-99)
POC Glucose 154 H mg/dl
(70-99)
09/10/24 06:25
09/10/24 06:25
Vital Signs
Initial and Last Documented VS:
Initial Vital Signs
BP
140/45
09/10/24 06:21
Last Documented Vital Signs
Temp Pulse Resp BP Pulse Ox
100 F 88 17 140/45 94
09/10/24 06:22 09/10/24 06:43 09/10/24 06:22 09/10/24 06:22 09/10/24 06:43
MDM/Problems Addressed
Differential Diagnosis Includes:
Intracerebral hemorrhage stroke ischemic hemorrhagic seizure Raz's paralysis toxic metabolic UTI electrolyte recrudescence
MDM/Problems Addressed:
Confusion concern for her other
Chronic conditions affecting care: Arrhythmia
Acute Exacerbation and/or Progression of Chronic Illness: Arrhythmia
*Radiology
Radiology exam reviewed: radiology read reviewed
*Pulse Oximetry
Patient hypoxic: no
*EKG
Interpreted by ED Provider?: Yes
Interpretation: abnormal
Comparison EKG: no comparison EKG present
Heart Rate: 78
Rate: normal
Rhythm: a-fib
Ischemia: non-specific ST changes
*Water Well Driller Interpretation
Rate: normal
Interpretation: normal
Heart Rate: 78
Rhythm: a-fib
*Critical Care Note
Total Time (30-74mins, 75-104mins- exclusive of procedures): 30
Update Note
Update Note:
Update, wake-up stroke elderly [facility] demented patient on Xarelto not a IV lytic therapy candidate does not appear to be a candidate for retrieval due to her baseline altered mental status and age will check CT of the head to rule out
hemorrhage, look for other causes mental status change
7:[address] reviewed reviewed with [facility] radiology m2 occlusion on the left
Patient does not appear to be a IAT candidate due to advanced dementia also has a low-grade temp, will check urine chest x-ray
ED Attending Note
-
Portions of this chart may have been created with voice recognition software.� Occasional wrong word or��sound alike� substitutions may have occurred due to the inherent limitations of voice recognition software.
Discharge Plan
Departure
Prescriptions:
No Action
atorvastatin 40 mg tablet
40 mg PO QPM
metformin 500 mg tablet
500 mg PO BID@0800,1700
donepezil 10 mg tablet
10 mg PO QPM
isosorbide mononitrate 30 mg tablet extended release 24 hr
30 mg PO DAILY
cyanocobalamin (vitamin B-12) 1,000 mcg Tablet
1,000 mcg PO DAILY
acetaminophen 650 mg tablet extended release
650 mg PO Q6H PRN (Reason: FEVER)
levothyroxine 88 mcg tablet
88 mcg PO MOTUWETHFR
levothyroxine 88 mcg tablet
176 mcg PO SUSA
digoxin 125 mcg (0.125 mg) tablet
125 mcg PO Q48H
furosemide 20 mg tablet
20 mg PO DAILY
mirtazapine 15 mg tablet
22.5 mg PO HS
nystatin [Nystop] 100,000 unit/gram powder
1 applic TOPICAL Q6HPRN PRN (Reason: ABD FOLDS/BREASTS)
Rx Instructions:
apply to abd folds/breasts
nystatin [Nystop] 100,000 unit/gram powder
1 applic TOPICAL BID
Rx Instructions:
apply to abd folds/breasts
magnesium oxide 250 mg magnesium tablet
250 mg PO QPM
aripiprazole 2 mg tablet
2 mg PO DAILY
Januvia 50 mg tablet
50 mg PO DAILY
PreserVision AREDS 4,296 mcg-226 mg-90 mg capsule
1 cap PO DAILY
Xarelto 15 mg tablet
15 mg PO QPM
Entresto 24-26 mg tablet
1 tab PO Q12H
metoprolol succinate 50 mg Tablet Extended Release 24 Hr
50 mg PO DAILY Qty: 0 0RF
acetaminophen [Tylenol] 325 mg Tablet
650 mg PO Q4HPRN PRN (Reason: MILD PAIN)
cholecalciferol (vitamin D3) [Vitamin D3] 25 mcg (1,000 unit) Tablet
25 mcg PO QPM
omeprazole 20 mg Tablet,Delayed Release (Dr/Ec)
20 mg PO DAILY
amoxicillin 500 mg Capsule
500 mg PO Q8H Qty: 14 0RF
Lactobac/Bifidobac [Visbiome]
2 cap PO DAILY 7 Days 0RF
cefdinir 300 mg capsule
300 mg PO BID Qty: 14 0RF
Referrals:
Abbie Newsome CRNP [Family Provider] -
Interventions
Interventions:
*Risk Screen - Suicide Last Done: 09/10/24 06:21
*General Assessment Last Done: 09/10/24 06:21
*Neglect/Abuse Screening Last Done: 09/10/24 06:21
*ED- Fall Risk Assessment Last Done: 09/10/24 06:21
*ED COVID-19 Vaccine History Last Done: 09/10/24 06:21
ED- Pulmonary Assessment Last Done: 09/10/24 06:41
ED- Neurological Assessment Last Done: 09/10/24 07:00
ED- Cardiac Assessment Last Done: 09/10/24 06:41
Discharge Date and Time
Print Language: THAI
[2024-09-10 06:46] LABS: % Basophils 0.3 % (0-2); % Eosinophils 0.1 % (0-6); % Immature Granulocytes 0.3 % (0-0.5); % Lymphocytes 15.3 % (20.5-51.1); % Monocytes 9.9 % (1.7-9.3); % Neutrophils 74.1 % (42.2-75.2); Absolute Lymphocytes 1.3 10^3/uL (1.2-3.4); Absolute Monocytes 0.9 10^3/uL (0.1-0.6); Absolute Neutrophils 6.4 10^3/uL (1.4-6.5); Hematocrit 30.5 % (37.0-47.0); Hemoglobin 9.7 g/dL (12.0-16.0); Mean Corp Hgb Conc. 31.8 g/dL (33.0-37.0); Mean Corpuscular Hgb 25.9 pg (27.0-31.0); Mean Corpuscular Volume 81.6 fL (81.0-99.0); Mean Platelet Volume 10.1 fL (7.4-10.4); Nucleated Red Blood Cells % 0 %; Platelet Count 185 10^3/uL (130-400); Red Blood Cell Count 3.74 10^6/uL (4.20-5.40); White Blood Cell Count 8.7 10^3/uL (4.8-10.8)
[2024-09-10 06:51] LABS: ALT (SGPT) 28 U/L (0-35); AST (SGOT) 24 U/L (14-36); Albumin 3.8 g/dl (3.5-5.0); Alkaline Phosphatase 70 U/L (38-126); Blood Urea Nitrogen 29 mg/dl (7-17); Calcium 8.7 mg/dl (8.4-10.2); Carbon Dioxide 27 mmol/L (22-30); Chloride 103 mmol/L (98-107); Glucose 150 mg/dl (70-99); Potassium 4.2 mmol/L (3.5-5.1); Sodium 138 mmol/L (135-145); Total Bilirubin 0.8 mg/dl (0.2-1.3); Total Protein 6.4 g/dl (6.3-8.2)
[2024-09-10 07:02] LABS: NT-proBNP 4320 pg/ml; Troponin I 0.019 ng/ml
[2024-09-10 07:46] LABS: Urine Albumin 2+ (Neg - Trace); Urine Bilirubin Negative (Negative); Urine Character Clear (Clear); Urine Color Yellow; Urine Glucose Negative (Negative); Urine Ketone Negative (Negative); Urine Leukocyte Negative (Negative); Urine Nitrite Negative (Negative); Urine Occult Blood Negative (Negative); Urine Urobilinogen Negative (Neg - 1+)
--- NOTE | 2024-09-10 08:03 | HPS.HSE ---
Family Physician
-
Family Physician: CESAR Ramirez
Chief Complaint
-
Change in mental status
History of Present Illness
Patient is 84 years old with history of permanent A-fib on Xarelto, diabetes, hypertension, hyperlipidemia, dementia who came from care home with a change in mental status and left-sided weakness.
Stroke alert called, and patient was seen by neurology in the ER.
CT head negative for acute finding, CTA head and neck shows:
Calcified plaque formation involving bilateral cervical carotid and internal carotid arteries, as well as bilateral cavernous internal carotid arteries.
Luminal diameter reduction of 50-60% involving the proximal right ICA, with less than 50% luminal diameter reduction involving the proximal left ICA.
Calcified plaque within the distal ICA, bilaterally, with less than 50% luminal diameter reduction involving the distal right ICA, and 50% luminal diameter reduction of the distal left ICA.
Mild multifocal stenosis of the left M1. Left M2 proximal focal occlusion with reconstitution
But also incidentally shows pneumonia.
Neurology recommending no MRI.
Will be admitted under hospitalist service, started pneumonia treatment and stroke work up.
Patient seen and examined at bedside, severe dementia and cannot provide interval history.
Discussed with son in the phone, patient is DNI/DNR.
Medical History
Past Medical History
Past Medical History: Reports Arrhythmia, CHF, GERD, HTN, Hypothyroidism, NIDDM, Psychiatric and Other
Additional Past Medical History:
Arrthythmia (afib) , Psychiatric (Depression) and (Alzheimer's Dementia, UTI)
Past Surgical History: Reports Cardiac, Gynocological and Other
Additional Past Surgical History:
Cardiac (CABG 6 vessels, Stents X 6,), Gynecological (Hysterectomy) and Orthopedic (Back surgery)
Social History
Tobacco: Former Smoker
Alcohol: None
Personal:
Living: Care Home
Family History
Family History: Not pertinent
Allergies / Home Medications
Allergies reflects when Allergies were last updated in [employer].
Home Medications with original date entered in [facility]
Allergy/Medication List:
Allergies
Allergy/AdvReac Type Severity Reaction Status Date / Time
No Known Allergies Allergy Verified 05/21/24 18:17
Home Medications
acetaminophen 650 mg tablet,extended release 650 mg PO Q6H PRN FEVER 06/18/23
aripiprazole 2 mg tablet 2 mg PO DAILY Mental Health/Anxiety 06/18/23
atorvastatin 40 mg tablet 40 mg PO QPM High Cholesterol 06/18/23
cyanocobalamin (vitamin B-12) 1,000 mcg tablet 1,000 mcg PO DAILY Supplement 06/18/23
digoxin 125 mcg (0.125 mg) tablet 125 mcg PO Q48H Heart Failure 06/18/23
donepezil 10 mg tablet 10 mg PO QPM Neurological Condition 06/18/23
furosemide 20 mg tablet 20 mg PO DAILY Fluid Retention/Swelling 06/18/23
isosorbide mononitrate 30 mg tablet,extended release 24 hr 30 mg PO DAILY Blood Pressure 06/18/23
levothyroxine 88 mcg tablet 88 mcg PO MOTUWETHFR Thyroid 06/18/23
levothyroxine 88 mcg tablet 176 mcg PO SUSA Thyroid 06/18/23
magnesium oxide 250 mg PO QPM Supplement 06/18/23
metformin 500 mg tablet 500 mg PO BID@0800,1700 Diabetes 06/18/23
mirtazapine 15 mg tablet 22.5 mg PO HS Mental Health/Anxiety 06/18/23
nystatin 100,000 unit/gram topical powder (Nystop) 1 applic topical BID ABD FOLDS/BREASTS 06/18/23
nystatin 100,000 unit/gram topical powder (Nystop) 1 applic topical Q6HPRN PRN ABD FOLDS/BREASTS 06/18/23
rivaroxaban 15 mg tablet (Xarelto) 15 mg PO QPM Blood Clot Prevention/Tx 06/18/23
sacubitril 24 mg-valsartan 26 mg tablet (Entresto) 1 tab PO Q12H Heart Failure 06/18/23
sitagliptin phosphate 50 mg tablet (Januvia) 50 mg PO DAILY Diabetes 06/18/23
vitamins A,C,Z-lwfr-ueicdc 4,296 mcg-226 mg-90 mg capsule (PreserVision AREDS) 1 cap PO DAILY Supplement 06/18/23
metoprolol succinate 50 mg tablet,extended release 24 hr 50 mg PO DAILY #0 tabs 06/23/23
acetaminophen 325 mg tablet (Tylenol) 650 mg PO Q4HPRN PRN MILD PAIN 07/29/23
cholecalciferol (vitamin D3) 25 mcg (1,000 unit) tablet (Vitamin D3) 25 mcg PO QPM Supplement 07/29/23
omeprazole 20 mg tablet,delayed release 20 mg PO DAILY Gastrointestinal Issue 07/29/23
Lactobac/Bifidobac [Visbiome] 2 cap PO DAILY 7 days 08/02/23
amoxicillin 500 mg capsule 500 mg PO Q8H #14 caps 08/02/23
cefdinir 300 mg capsule 300 mg PO BID Urinary issue #14 caps 05/21/24
Review of Systems
-
A 12 point ROS was completed and negative except as noted: Yes
Constitutional: Denies Fever, Weight Gain, Weight Loss, Fatigue or Sleep Disturbance
EENT: Denies Tearing, Sore Throat, Mouth Pain, Mouth Swelling or Runny Nose
Respiratory: Denies Cough, Hemoptysis or Trouble Breathing
Cardiac: Denies Chest Pain, Diaphoresis, Palpitations or Syncope
Abdomen/GI: Denies Abdominal Pain, Nausea, Vomiting, Diarrhea, Constipated, Bloody Stools or Black Stools
: Denies Dysuria, Frequency, Flank Pain, Incontinence, Difficulty Voiding, Urgency, Bleeding or Dark Urine
Musculoskeletal: Denies Joint Pain, Joint Swelling, Muscle Pain, Muscle Stiffness or Edema
Skin: Denies Itching or Rash
Neurological: Denies Dizzy, Headache, Weakness or Numbness
Endocrine: Denies Polyuria, Polydipsia or Temp Intolerance
Hematologic/Lymphatic: Denies Bleeding, Swollen Glands or Bruising
Psych: Reports Calm; Denies Depression, Anxiety or Panic Disorder
Physical Exam
Vital Signs
Vital Signs
Temp Pulse Resp BP Pulse Ox
100 F 86 19 137/74 96
09/10/24 06:22 09/10/24 07:15 09/10/24 07:00 09/10/24 07:00 09/10/24 07:15
Physical Exam
General: Well Developed, Well Nourished, No Apparent Distress, Comfortable and Good Appetite; No Pain, Chills or Sweats
HEENT: NormoCephalic, Moist mucous membranes, Atraumatic, Good Dentition, PERRLA, Nose Appears Normal and Ears Appear Normal
Respiratory: Clear
Cardiac: S1/S2 and Regular Rhythm
Breast: Deferred by me
GI: Soft, Non Tender, Non Distended and Normal Bowel Sounds
Genito-urinary: Deferred by me
Musculoskeletal: No Clubbing, No Cyanosis and No Edema
Skin: Warm; No Rash, Jaundice, Ulcers, Lesions or Decubitus Ulcers
Neuro: Awake, Alert, Oriented, AO x 3, No Motor Deficits, Nonfocal/grossly intact and Cranial Nerves Intact
Hematologic/Lymphatic: No Lymphadenopathy
Psych: Calm
Laboratory Results
-
09/10/24 06:25
09/10/24 06:25
Laboratory Results
Total Bilirubin 0.8 mg/dl (0.2-1.3) 09/10/24 06:25
AST 24 U/L (14-36) 09/10/24 06:25
ALT 28 U/L (0-35) 09/10/24 06:25
Alkaline Phosphatase 70 U/L (38-126) 09/10/24 06:25
Troponin I 0.019 ng/ml 09/10/24 06:25
Data Reviewed
-
Diagnostic Radiology: Report Reviewed by me
CT Scan: Report Reviewed by me
Medical Tests (Nuc Med, Echo, EKG etc): Report Reviewed by me
Lab Data: Labs Reviewed by me
Old Records: Reviewed
Impression/Plan
-
IMPRESSION:
Patient is 84 years old with history of permanent A-fib on Xarelto, diabetes, hypertension, hyperlipidemia, dementia who came from care home with a change in mental status and left-sided weakness.
Stroke alert called, and patient was seen by neurology in the ER. CT head negative for acute finding, CTA head and neck shows Calcified plaque formation but also but also incidentally shows pneumonia.
Patient admitted for pneumonia treatment and stroke workup, seen by neurology recommended no MRI since patient already on Xarelto.
Assessment/plan
Left-sided weakness/confusion, rule out CVA
CT head done in the ER shows no acute intracranial hemorrhage.
CTA head and neck shows :
Calcified plaque formation involving bilateral cervical carotid and internal carotid arteries, as well as bilateral cavernous internal carotid arteries.
Luminal diameter reduction of 50-60% involving the proximal right ICA, with less than 50% luminal diameter reduction involving the proximal left ICA.
Calcified plaque within the distal ICA, bilaterally, with less than 50% luminal diameter reduction involving the distal right ICA, and 50% luminal diameter reduction of the distal left ICA.
Mild multifocal stenosis of the left M1. Left M2 proximal focal occlusion with reconstitution.
On the right, mild multifocal stenosis of the M1 and M2 without discrete occlusion.
Admit to telemetry bed.
Frequent neurocheck.
Allow permissive hypertension.
Neurology consulted.
Neurology not recommending MRI brain since patient already on Xarelto.
Check hemoglobin A1c, fasting lipid panel.
Echo pending
PT/OT consult.
Speech consult
Social service for discharge plan.
Pneumonia (hospital-acquired)
Patient had mild degree fever.
Chest x-ray showed No evidence of pneumonia. Mild cardiomegaly, which has developed since the prior examination. No congestive heart failure.
But CTA neck showed partially visualized pneumonia in the superior segment of the right lower lobe.
Received IV Rocephin in the ER.
Will continue with Rocephin/Zithromax
As per son, many resident tested positive for COVID at care home-but patient herself tested negative
Will repeat testing here
Blood culture/sputum culture pending
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
Creatinine 1.4.
Avoid nephrotoxins
Failure to thrive secondary to advancing Alzheimer's dementia
-Continue donepezil, aripiprazole, mirtazapine
History of heart failure
-Continue isosorbide mononitrate/lasix/entresto
echo pending
permanent atrial fibrillation
-Continue digoxin (dig level pending)
-Metoprolol on hold, to allow permissive hypertension
-Continue Xarelto
Essential hypertension
-Allow permissive hypertension
Hypercholesterolemia
-Continue statin
History of diabetes mellitus
Hold metformin (patient received contrast)
Insulin sliding scale
Diabetic diet
Hemoglobin A1c 6.9 on 06/2023-will recheck.
-Continue Januvia
Hypothyroidism
-Continue levothyroxine
GERD
-Continue omeprazole
CODE STATUS: DNI/DNR (discussed with son in the phone)
DVT prophylaxis: Xarelto
Diet: Diabetic pur�ed diet until seen by speech.
Total time spent on today's encounter was 75 minutes which included time spent in counseling the patient/family regarding diagnosis and treatment plan as listed above, goals of care, and symptom management. Case was discussed with nursing staff,
specialists, and care coordinators/case management. All labs and imaging personally reviewed by me. Remainder the time spent in detailed review of previous records, lab data, imaging, and other medical provider documentation.
--- NOTE | 2024-09-10 08:07 | CON.NEURO ---
Neuro Assessment/Plan
Assessment
Acute onset left upper and lower extremity weakness in a patient with dementia.
With discovered left M2 occlusion by CTA, the likely cause for the patient's transient symptoms is acute ischemic stroke involving the left MCA territory despite the patient's involvement of the left hemibody.
Patient is at increased risk of stroke based on use of aripiprazole.
Patient was not a candidate for tenecteplase due to routine use of anticoagulant. Patient was not a candidate for clot retrieval due to the distant location for clot. Studies now show that distal occlusions are equally treated by means of clot
retrieval or medical management. Given the patient's significant dementia, the patient would likely be of significant risk for bad outcome with the use of EVT (IAT)
Plan
Would continue the patient's usual rivaroxaban which may have minimized the patient's strokelike symptoms
Rehabilitation evaluations and treatment
Check lipid profile and initiate atorvastatin increase if LDL greater than 70 (from 40 mg to a dose of 80 mg despite the patient's advanced age).
Unfortunately, MRI of the brain will not change therapy at this time. If stroke is evident, would not change therapy. If stroke is not present, would not change therapy in the form of rivaroxaban
Provide medical educational materials
Goal of normotension
Goal of normoglycemia
Continue donepezil
Will follow peripherally.
Consultation
Order
Date of Consultation: 09/10/24
Requesting Provider: Emergency department physician
Reason for Consult: Stroke alert
Subjective/Objective
Subjective Data
Date of Service: September 10, 2024
From my colleague's consult 06/2023:
'This is an 82-year-old woman who presented to [facility] on June 18, 2023 with hypotension and Flu A. Neurology consultation was requested for evaluation and management of left visual deficits.
Ms. Smart reports generalized weakness. She denied new visual, focal motor or sensory deficits.
I. Transient clinical hemineglect. 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 Differential diagnosis included R MCA infarct/TIA
II. Multifactorial encephalopathy (neurodegenerative, metabolic, infectious)
III. Alzheimer's disease with behavioral manifestations
IV. A-Fib
-fall and aspiration precautions;
-Brain MRi wo chelsea
-Continue Xarelto'
Objective Data
Vital Signs
Temp Pulse Resp BP Pulse Ox
37.7 C 86 19 137/74 96
09/10/24 06:22 09/10/24 07:15 09/10/24 07:00 09/10/24 07:00 09/10/24 07:15
Lab Results
09/10/24 06:25
09/10/24 06:25
Sodium 138 mmol/L (135-145) 09/10/24 06:25
Potassium 4.2 mmol/L (3.5-5.1) 09/10/24 06:25
BUN 29 mg/dl (7-17) H 09/10/24 06:25
Glucose 150 mg/dl (70-99) H 09/10/24 06:25
Calcium 8.7 mg/dl (8.4-10.2) 09/10/24 06:25
Hua-N-Xmcuftxhazq Pept 4320 pg/ml 09/10/24 06:25
Patient Allergies
No Known Allergies Allergy (Verified 05/21/24 18:17)
CVA Assessment
Onset of Stroke Symptoms
Onset of symptoms known: Yes
Date of onset of symptoms: 09/10/24
Time of onset of symptoms: 06:00
Time pt last seen normal is known: No
Date last time pt seen normal: 09/09/24
NIH Stroke Score
Level of Consciousness: 1 - Arousable
LOC Questions: 2-Neither correct
LOC Commands: 1-Performs one correctly
Best Horizontal Gaze: 0-Normal
Visual Ramsay: 1=Partial hemianopia (on the left reduced)
Facial Palsy: 0=Normal, symmetrical
Motor - Right Arm: 0=No drift 10 seconds
Motor - Left Arm: 0=No drift 10 seconds
Motor - Right Le-No drift 5 seconds
Motor - Left Le-No drift 5 seconds
Limb Ataxia: 0-Absent
Sensation: 0-Normal
Best Language: 0-No aphasia
Dysarthria: 0-Normal
Extinction and Inattention: 1-Sensory inattention
Total Score:: 6
Tenecteplase Contraindications
Inclusion and Exclusion criteria reviewed: Yes
Reasons for NON-Tx with Thrombolytics ABSOLUTE Exclusions: Patient taking oral anticoagulant and last dose within 48 hours
IAT Contraindications: Life expectancy < 1 year and Significant dementia
Review of Systems
-
Unable to obtain full review of systems at this time due to: Dementia
History Source: Patient
All other systems: Reviewed and negative
Neuro: Negative Dizzy or Headache
Physical Exam
-
General: No Apparent Distress and Appears Stated Age
Eyes: Round OU, [place] Conjunctivae and No Ptosis; Negative Able to visualize OU
HEENT: Anicteric and Moist Mucous Membranes
Neck: Full Range of Motion
Respiratory: No Dyspnea
Cardiac: No JVD
GI: Non-distended
Skin: Unremarkable
Extremities: No Clubbing, No Cyanosis and No Edema
Psych: Unable to Assess
Extended Neurological Exam
Mood & Affect: Affect Unremarkable
Attention Span & Concentration: Awake, Closes Eyes after Stimulation (After approximately 3 seconds) and Mild Difficulty with 2 Step Request; Negative Alert or Interactive
Memory: Able to Recall (Current location); Negative Unable to Recall Personal History
Tremor: Hand Tremor Absent and Head Tremor Absent
Involuntary Movement: None
Speech: Quality Unremarkable and Moderately Reduced Output
Cranial Nerve II: Left Eye: Pupillary Reactivity Unremarkable, Pupillary Size Unremarkable and Visual Ramsay Intact
Cranial Nerve II: Right Eye: Pupillary Reactivity Unremarkable, Pupillary Size Unremarkable and Visual Ramsay Intact
Cranial Nerves III, IV, : Extraocular Movement: Grossly Intact
Cranial Nerve VII: Facial Symmetry: Normal Facial Symmetry
Cranial Nerve VIII: Hearing: Unremarkable Hearing to Normal Conversational Volume
Cranial Nerves IX, X: Palate Movement: Palate Elevation Symmetric
Cranial Nerve XI: Shoulder Shrug: Unable to Assess
Cranial Nerve XII: Tongue Protusion: Unable to Assess
Muscle Strength, Overall: Spontaneously Moves (All extremities)
Muscle Bulk & Tone: Bulk Unremarkable and Tone Unremarkable
Pronator Drift: No Drift in Upper Extremities and No Drift in Lower Extremities
Deep Tendon Reflexes: Absent Throughout
Touch Sensation: Unremarkable
Coordination: Peopdh-bytm-ntrncb Testing Unremarkable
Babinski Sign: Absent Bilaterally
Gait & Station: Unable to Assess
Data Reviewed
-
CT-A: Report Reviewed
CT Head: Report Reviewed
Labs: Report Reviewed
Reviewed with: Physician and Patient
Old Records: Summarized
Medications
-
Home Medications
�Medication �Instructions �Recorded
acetaminophen 650 mg 650 mg PO Q6H PRN FEVER 06/18/23
tablet,extended release
aripiprazole 2 mg tablet 2 mg PO DAILY Mental Health/Anxiety 06/18/23
atorvastatin 40 mg tablet 40 mg PO QPM High Cholesterol 06/18/23
cyanocobalamin (vitamin B-12) 1,000 mcg PO DAILY Supplement 06/18/23
1,000 mcg tablet
digoxin 125 mcg (0.125 mg) tablet 125 mcg PO Q48H Heart Failure 06/18/23
donepezil 10 mg tablet 10 mg PO QPM Neurological Condition 06/18/23
furosemide 20 mg tablet 20 mg PO DAILY Fluid 06/18/23
Retention/Swelling
isosorbide mononitrate 30 mg 30 mg PO DAILY Blood Pressure 06/18/23
tablet,extended release 24 hr
levothyroxine 88 mcg tablet 88 mcg PO MOTUWETHFR Thyroid 06/18/23
levothyroxine 88 mcg tablet 176 mcg PO SUSA Thyroid 06/18/23
magnesium oxide 250 mg PO QPM Supplement 06/18/23
metformin 500 mg tablet 500 mg PO BID@0800,1700 Diabetes 06/18/23
mirtazapine 15 mg tablet 22.5 mg PO HS Mental Health/Anxiety 06/18/23
nystatin 100,000 unit/gram topical 1 applic topical BID ABD 06/18/23
powder (Nystop) FOLDS/BREASTS
nystatin 100,000 unit/gram topical 1 applic topical Q6HPRN PRN ABD 06/18/23
powder (Nystop) FOLDS/BREASTS
rivaroxaban 15 mg tablet (Xarelto) 15 mg PO QPM Blood Clot 06/18/23
Prevention/Tx
sacubitril 24 mg-valsartan 26 mg 1 tab PO Q12H Heart Failure 06/18/23
tablet (Entresto)
sitagliptin phosphate 50 mg tablet 50 mg PO DAILY Diabetes 06/18/23
(Januvia)
vitamins A,C,H-rcip-uqmokn 4,296 1 cap PO DAILY Supplement 06/18/23
mcg-226 mg-90 mg capsule
(PreserVision AREDS)
metoprolol succinate 50 mg 50 mg PO DAILY #0 tabs 06/23/23
tablet,extended release 24 hr
acetaminophen 325 mg tablet 650 mg PO Q4HPRN PRN MILD PAIN 07/29/23
(Tylenol)
cholecalciferol (vitamin D3) 25 25 mcg PO QPM Supplement 07/29/23
mcg (1,000 unit) tablet (Vitamin
D3)
omeprazole 20 mg tablet,delayed 20 mg PO DAILY Gastrointestinal 07/29/23
release Issue
Lactobac/Bifidobac [Visbiome] 2 cap PO DAILY 7 days 08/02/23
amoxicillin 500 mg capsule 500 mg PO Q8H #14 caps 08/02/23
cefdinir 300 mg capsule 300 mg PO BID Urinary issue #14 05/21/24
caps
Past History
Past History
ED Past Medical History: Arrthythmia (afib), CAD, CHF, GERD, HTN, Hypercholesterolemia, NIDDM, Hypothyroidism, Psychiatric (Depression) and Other (Alzheimer's Dementia, UTI); Negative Renal failure ([place] on CKD)
ED Past Surgical History: Cardiac (CABG 6 vessels, Stents X 6), Gynecological (Hysterectomy) and Orthopedic (Back surgery)
Social History
Tobacco: Former smoker
Alcohol: None
Personal:
Living: [facility] ([facility])
Family History
Family History: Other (reviewed and non-contributory)
[2024-09-10 08:08] LABS: Urine Red Blood Cell 0-2 /HPF (0-2); Urine Squamous Cell None seen /LPF (Few); Urine White Cell None Seen /HPF (0-5)
[2024-09-10] MEDS: ROCEPHIN 1000 MG IV (09:06)
[2024-09-10] MEDS: LANOXIN 125 MCG PO (12:39)
[2024-09-10] MEDS: SYNTHROID 176 MCG PO (12:39)
[2024-09-10 14:52] LABS: Erythrocyte Sed Rate 16 mm/hour (0-20)
[2024-09-10 15:02] LABS: HDL Cholesterol 34 mg/dl; LDL Cholesterol, Calculated 45 mg/dl; Total Cholesterol 95 mg/dl (50-199); Triglyceride 82 mg/dl (10-149); Very Low Density Lipoprotein 16 mg/dl (0-30)
--- NOTE | 2024-09-10 15:03 | PTOTSP ---
Speech Pathology
Clinical Swallow Evaluation
84F, �Aspen�, with admission for CVA/TIA symptoms p/w s/s concerning for an oropharyngeal dysphagia likely acute on chronic. Acute factors include current PNA, increased lethargy, dysarthria, and workup for CVA/TIA. Chronic factors include
Alzheimer�s dementia, missing lower dentition, CHF, and GERD. Unable to rule out silent aspiration at bedside this date.
Recommend:
1. Soft and bite sized, thin liquids
2. Meds as best tolerated; one at a time
3. Swallowing strategies: partial supervision; slow rate; chew well
4. Reflux precautions: upright with meals; upright 30 minutes post meal
4. [employer] service to follow up re: to assess tolerance of current diet level; consider possible VSE in the presence of PNA; and provide dysphagia tx at the acute care level
[2024-09-10 15:57] LABS: Digoxin 0.4 ng/ml (0.8-2.0)
[2024-09-10 16:07] LABS: Folate 7.1 ng/ml (2.76-20); Vitamin B12 992 pg/ml (239-931)
[2024-09-10 17:04] LABS: Glucose - Point of Care 121 mg/dl (70-99)
[2024-09-10] MEDS: NOVOLOG FLEXPEN-LOW RESISTANCE SC (17:13)
[2024-09-10] MEDS: VIBRAMYCIN 260 MG IV (17:18)
[2024-09-10 17:25] LABS: COVID-19 Antigen Positive (Negative)
[2024-09-10] MEDS: XARELTO 15 MG PO (17:37)
[2024-09-10] MEDS: MAGNESIUM OXIDE 250 MG PO (17:37)
[2024-09-10] MEDS: LIPITOR 40 MG PO (17:38)
[2024-09-10] MEDS: ARICEPT 10 MG PO (17:38)
[2024-09-10] MEDS: VITAMIN D3 (cholecalciferol) 25 MCG PO (17:38)
--- NOTE | 2024-09-10 17:45 | PTCARENOTE ---
Patient positive for COVID. Dr. Aguirre and Dr. Lane notified. Will transfer to room 333.
--- NOTE | 2024-09-10 18:35 | PTCARENOTE ---
Patient transferred to room 333. All belongings taken with patient at time of transfer. Report called in to [facility]. [facility] completed at bedside with receiving RN.
--- NOTE | 2024-09-10 19:33 | PTCARENOTE ---
1838 Pt received in room 333-1 from [facility] for positive covid. Bed alarm armed and audible. Call west within reach.
--- NOTE | 2024-09-10 19:48 | PTCARENOTE ---
[facility] contacted to confirm patient home medication list.
[2024-09-10] MEDS: REMERON 22.5 MG PO (21:20)
[2024-09-11] VITALS (7 sets, daily range): BP systolic 151–191; BP diastolic 72–108; PULSE 87; O2SAT 98; BMI 24.5
[2024-09-11 01:08] LABS: Glucose - Point of Care 159 mg/dl (70-99)
[2024-09-11] MEDS: VIBRAMYCIN 260 MG IV ×2 (02:46→16:16)
[2024-09-11] MEDS: SYNTHROID 88 MCG PO (05:33)
[2024-09-11 06:50] LABS: Hematocrit 30.4 % (37.0-47.0); Hemoglobin 9.8 g/dL (12.0-16.0); Mean Corp Hgb Conc. 32.2 g/dL (33.0-37.0); Mean Corpuscular Hgb 26.1 pg (27.0-31.0); Mean Corpuscular Volume 80.9 fL (81.0-99.0); Platelet Count 189 10^3/uL (130-400); Red Blood Cell Count 3.76 10^6/uL (4.20-5.40); Red Cell Dist. Width 16.2 % (11.5-14.5); White Blood Cell Count 8.4 10^3/uL (4.8-10.8)
[2024-09-11 07:08] LABS: Blood Urea Nitrogen 27 mg/dl (7-17); Calcium 8.6 mg/dl (8.4-10.2); Carbon Dioxide 25 mmol/L (22-30); Chloride 107 mmol/L (98-107); Estimated Creatinine Clearance 31 ml/min; Glucose 119 mg/dl (70-99); Sodium 140 mmol/L (135-145); eGFR 49.55
[2024-09-11 07:30] LABS: TSH 0.69 uIU/ml (0.47-4.68)
[2024-09-11 07:49] LABS: Digoxin < 0.4 ng/ml (0.8-2.0)
[2024-09-11] MEDS: VITAMIN B-12 1000 MCG PO (08:51)
[2024-09-11] MEDS: OCUVITE SOFTGEL 1 CAP PO (08:52)
[2024-09-11] MEDS: PROTONIX 40 MG PO (08:52)
[2024-09-11] MEDS: LASIX 20 MG PO (08:53)
[2024-09-11] MEDS: ABILIFY 2 MG PO (08:56)
[2024-09-11] MEDS: STERILE WATER FOR INJECTION 10 ML IV (08:58)
[2024-09-11] MEDS: ROCEPHIN 1000 MG IV (08:58)
[2024-09-11] MEDS: TOPROL XL 50 MG PO (09:06)
[2024-09-11 09:14] LABS: Glucose - Point of Care 106 mg/dl (70-99)
--- NOTE | 2024-09-11 09:18 | W.PN.HOSP.TC ---
Addendum entered and electronically signed by Renny Singh MD 09/11/24 15:58:
stage 2 pressure injury right buttock, POA
Original Note:
Today's Communication/Plan
-
see plan
Assessment / Plan
Assessment / Plan
84 F PMHx permanent A-fib on Xarelto, DM2, hypertension, hyperlipidemia, dementia who [facility] with a change in mental status and left-sided weakness. Stroke alert called, and patient was seen by neurology in the ER.
Gen: NAD, Awake and alert
Eyes: EOMI, PERRLA, no scleral icterus.
Neck: supple.
CV: irreg/irreg, +S1/S2, no m/r/g.
Resp: CTAB, no rales, wheezes, or rhonchi.
Abd: +BS, soft, NT, ND
Skin: No rashes.
Neuro: CN 2-12 intact, non-focal.
Psych: Normal mood and affect.
CT brain: No acute intracranial abnormality noted.
CTA head/neck: Calcified plaque formation involving bilateral cervical carotid and internal carotid arteries, as well as bilateral cavernous internal carotid arteries. Luminal diameter reduction of 50-60% involving the proximal right ICA, with less
than 50% luminal diameter reduction involving the proximal left ICA. Calcified plaque within the distal ICA, bilaterally, with less than 50% luminal diameter reduction involving the distal right ICA, and 50% luminal diameter reduction of the distal
left ICA. Mild multifocal stenosis of the left M1. Left M2 proximal focal occlusion with reconstitution. On the right, mild multifocal stenosis of the M1 and M2 without discrete occlusion. Incidental note is made of partially visualized pneumonia in
the superior segment of the right lower lobe.
CXR: No evidence of pneumonia. Mild cardiomegaly, which has developed since the prior examination. No congestive heart failure.
Left-sided weakness/confusion:
-imaging above, no acute CVA or arterial occlusion on CT scans
-regardless of neuro's recommendations will check MRI brain (I do NOT agree with neurology's recommendation against MRI brain)
-cont Xarelto (was on HEAD OF DRAMA for afib), statin
-tele
-check echo
-PT/OT/speech
RLL PNA:
-COVID POS
-cont Rocephin/Doxy for now
Other problems:
CKD3b (WOLFGANG has been ruled out)
Failure to thrive due to advancing Alzheimer's dementia: cont donepezil/aripiprazole/mirtazapine
Chronic HF (presumed HFrEF): cont Imdur/Lasix/Entresto. Restart home BB (should not have been held). Echo pending.
Permanent atrial fibrillation: cont Dig/Xarelto. Restart home BB.
Essential hypertension: Restart BB, cont Entresto
Hypercholesterolemia: cont statin
DM2: SSI/accuchecks, cont Januvia
Hypothyroidism: Cont Levoxyl
GERD: Cont PPI
Xarelto/DNR-I
Total time spent on today's encounter was 50 minutes which included time spent in counseling the patient/family regarding diagnosis and treatment plan as listed above, goals of care, and symptom management. Case was discussed with nursing staff,
specialists, and care coordinators/case management. All labs and imaging personally reviewed by me. Remainder the time spent in detailed review of previous records, lab data, imaging, and other medical provider documentation.
Anticipated Discharge: Within 24 hours
Subjective/Interval History
-
Date of Service: September 11, 2024
Patient does not offer acute complaints.
Objective Data
-
Labs:
Laboratory Results
09/11/24
06:13
WBC 8.4
Hgb 9.8 L
Hct 30.4 L
Plt Count 189
Sodium 140
Potassium 4.0
Chloride 107
Carbon Dioxide 25
BUN 27 H
Creatinine 1.1 H
Glucose 119 H
Calcium 8.6
Vital Signs:
Vital Signs
Temp Pulse Resp BP Pulse Ox
97.8 F 95 15 151/90 99
09/11/24 07:50 09/11/24 07:50 09/11/24 07:50 09/11/24 07:50 09/11/24 07:50
I&O
09/10/24 09/11/24 09/12/24
06:59 06:59 06:59
Intake Total 260 / 260
Balance 260 / 260
[2024-09-11] MEDS: NOVOLOG FLEXPEN-LOW RESISTANCE SC ×3 (09:25→18:23)
[2024-09-11] MEDS: JANUVIA 50 MG PO (10:16)
[2024-09-11 10:19] LABS: Glycohemoglobin (HgbA1c) 7.2 % (4.0-5.6)
--- NOTE | 2024-09-11 12:17 | PTOTSP ---
Speech Therapy Language Evaluation:
Pt earned an overall score of 6.83 on the QAB, indicative of moderate aphasia per parameters of this assessment. Pt demonstrated speech that was reduced in length/complexity with moderately reduced speech rate and anomia, accompanied by
self-corrections in conversation. Of note, per PT, pt with chronic L field cut. L field cut attributed to reductions in points on word comprehension, picture naming, and reading aloud, as pt was able to adequately name/identify pictures and read
words on R side of page. Additionally, repetition was impacted by reduced recall (baseline), as pt was unable to recall multi-element sentence. Although pt scored moderate on QAB with likely acute L CVA per neuro, question acuity of impairments
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 Pt reported to SODA DISPENSER that she 'thinks' her language is baseline and did not feel need for
further SODA DISPENSER services (although pt somewhat of an unreliable historian). Given the above mentioned information, no skilled SODA DISPENSER services for language warranted at this time, however will continue to monitor pending hospitalization.
[2024-09-11 12:21] LABS: Glucose - Point of Care 98 mg/dl (70-99)
--- NOTE | 2024-09-11 15:31 | PN.CDI ---
CDI
- -
CDI:
Physician Documentation Request
Admit Date: 09/10/24 09:11
Dear Doctor Francisco,
Please review the following and provide your response in the progress notes.
Clinical Indicators:
Selected Entries
09/10/24
20:00
Pressure injury stage [Present on admission Right Buttock] Stage 2
Physician documentation of the type and location of wounds is required for compliant documentation. Based on the above clinical findings and your assessment, please provide the following in your progress note:
Yes, stage 2 pressure injury right buttock, POA
No, stage 2 pressure injury right buttock
Other(please specify)
Location of the ulcer/wound, including laterality.
Type (etiology) of ulcer/wound:
- Diabetic ulcer
- Pressure (decubitus) ulcer
- Other
- Unable to determine
For a pressure ulcer, please also include the stage* of the ulcer:
- Stage 1 - Skin intact, non-blanchable redness
- Stage 2 - Partial thickness loss of dermis, includes intact or open blister
- Stage 3 - Full thickness tissue not including bone, tendon or muscle
- Stage 4 - Full thickness tissue loss, including exposed bone, tendon or muscle
- Unstageable - Full thickness loss in which the base of the ulcer is covered by slough (yellow, maher, crabtree, green or brown) and/or eschar (maher, brown or black) in the wound bed.
- Unable to determine
Use of terms such as suspected, likely, concern for, or probable (associated with a specific diagnosis that is being evaluated, monitored, or treated as if it exists) are acceptable and can be coded in the inpatient setting, when documented at the
time of discharge.
Thank you,
Collette Cruz RN BSN CCDS
CDI Specialist
Please contact via tiger text
Please use your independent medical judgment in providing your response.
*Source: National Pressure Ulcer Advisory Panel (NPUAP)
[2024-09-11 15:40] LABS: Procalcitonin 0.11 ng/ml (0.0-0.25)
[2024-09-11] MEDS: MAGNESIUM OXIDE 250 MG PO (17:55)
[2024-09-11 17:56] LABS: Glucose - Point of Care 99 mg/dl (70-99)
[2024-09-11] MEDS: ARICEPT 10 MG PO (17:56)
[2024-09-11] MEDS: XARELTO 15 MG PO (17:56)
[2024-09-11] MEDS: LIPITOR 40 MG PO (17:56)
[2024-09-11] MEDS: VITAMIN D3 (cholecalciferol) 25 MCG PO (17:56)
[2024-09-11] MEDS: DESENEX/MITRAZOL/ZEASORB TOPICAL (18:09)
[2024-09-11] MEDS: DESENEX/MITRAZOL/ZEASORB 1 APPLIC TOPICAL (20:58)
[2024-09-11] MEDS: REMERON 22.5 MG PO (20:59)
[2024-09-11 22:22] LABS: Glucose - Point of Care 135 mg/dl (70-99)
[2024-09-12] VITALS (7 sets, daily range): BP systolic 132–175; BP diastolic 61–101; BMI 24.7
[2024-09-12] MEDS: VIBRAMYCIN 260 MG IV (04:00)
[2024-09-12] MEDS: SYNTHROID 88 MCG PO (05:52)
[2024-09-12 07:56] LABS: Glucose - Point of Care 137 mg/dl (70-99)
[2024-09-12] MEDS: NOVOLOG FLEXPEN-LOW RESISTANCE SC (08:30)
--- NOTE | 2024-09-12 08:58 | W.PN.HOSP.TC ---
Today's Communication/Plan
-
Cancel MRI
dc IV Abx
Change to Tylenol TID
Resume Entresto
Add PRN Oral hydralazine
PT/OT
Assessment / Plan
Assessment / Plan
84 F PMHx permanent A-fib on Xarelto, DM2, hypertension, hyperlipidemia, dementia who [facility] with a change in mental status and left-sided weakness. Stroke alert called, and patient was seen by neurology in the ER.
Gen: NAD, Awake and alert
Eyes: EOMI, PERRLA, no scleral icterus.
Neck: supple.
CV: irreg/irreg, +S1/S2, no m/r/g.
Resp: CTAB, no rales, wheezes, or rhonchi.
Abd: +BS, soft, NT, ND
Skin: No rashes.
Neuro: CN 2-12 intact, non-focal.
Psych: Normal mood and affect.
CT brain: No acute intracranial abnormality noted.
CTA head/neck: Calcified plaque formation involving bilateral cervical carotid and internal carotid arteries, as well as bilateral cavernous internal carotid arteries. Luminal diameter reduction of 50-60% involving the proximal right ICA, with less
than 50% luminal diameter reduction involving the proximal left ICA. Calcified plaque within the distal ICA, bilaterally, with less than 50% luminal diameter reduction involving the distal right ICA, and 50% luminal diameter reduction of the distal
left ICA. Mild multifocal stenosis of the left M1. Left M2 proximal focal occlusion with reconstitution. On the right, mild multifocal stenosis of the M1 and M2 without discrete occlusion. Incidental note is made of partially visualized pneumonia in
the superior segment of the right lower lobe.
CXR: No evidence of pneumonia. Mild cardiomegaly, which has developed since the prior examination. No congestive heart failure.
Left-sided weakness/confusion: Suspect TIA
-imaging above, no acute CVA or arterial occlusion on CT scans
-cont Xarelto (was on CHIEF LIBRARIAN WORK WITH BLIND for afib), statin
Per neurology: Would continue the patient's usual rivaroxaban which may have minimized the patient's strokelike symptoms. MRI of the brain will not change therapy at this time.
# Acute viral illness
c/w low grade temp.
Give Tylenol TID , she has dementia and unable to express herself
-COVID POS
- CXR: No evidence of pneumonia. Mild cardiomegaly, which has developed since the prior examination. No congestive heart failure.
- negative procalcitonin, normal WBC, dc cont Rocephin/Doxy.
#CKD3b (WOLFGANG has been ruled out)
#Failure to thrive due to advancing Alzheimer's dementia: cont donepezil/aripiprazole/mirtazapine
# Chronic HF (presumed HFrEF): cont Imdur/Lasix/Entresto. Restart home BB (should not have been held). Echo pending.
#Permanent atrial fibrillation: cont Dig/Xarelto. Restarted home BB.
# Essential hypertension: Restarted BB, Lasix,
Resume Entresto
uncontrolled at times, add PRN hydralazine
#Hypercholesterolemia: cont statin
# DM2: SSI/accuchecks, cont Januvia
# Hypothyroidism: Cont Levoxyl
# GERD: Cont PPI
Xarelto/DNR-I
Total time spent on today's encounter was 57 minutes which included time spent in counseling the patient/family regarding diagnosis and treatment plan as listed above, goals of care, and symptom management. Case was discussed with nursing staff,
specialists, and care coordinators/case management. All labs and imaging personally reviewed by me. Remainder the time spent in detailed review of previous records, lab data, imaging, and other medical provider documentation.
Anticipated Discharge: 24 - 48 hours
Subjective/Interval History
-
Date of Service: September 12, 2024
No chest pain
No sob
No headache
Objective Data
-
Vital Signs:
Vital Signs
Temp Pulse Resp BP Pulse Ox
99.7 F 90 18 175/92 95
09/12/24 07:05 09/12/24 07:05 09/12/24 07:05 09/12/24 07:05 09/12/24 07:05
I&O
09/11/24 09/12/24 09/13/24
06:59 06:59 06:59
Intake Total 260 / 260
Balance 260 / 260
[2024-09-12] MEDS: PROTONIX 40 MG PO (09:21)
[2024-09-12] MEDS: JANUVIA 50 MG PO (09:21)
[2024-09-12] MEDS: VITAMIN B-12 1000 MCG PO (09:22)
[2024-09-12] MEDS: ABILIFY 2 MG PO (09:22)
[2024-09-12] MEDS: TOPROL XL 50 MG PO (09:22)
[2024-09-12] MEDS: LASIX 20 MG PO (09:22)
[2024-09-12] MEDS: OCUVITE SOFTGEL 1 CAP PO (09:22)
[2024-09-12] MEDS: DESENEX/MITRAZOL/ZEASORB 1 APPLIC TOPICAL ×2 (09:23→23:12)
[2024-09-12] MEDS: STERILE WATER FOR INJECTION 10 ML IV (09:36)
[2024-09-12] MEDS: ROCEPHIN 1000 MG IV (09:37)
[2024-09-12] MEDS: LANOXIN 125 MCG PO (12:15)
[2024-09-12 12:23] LABS: Glucose - Point of Care 171 mg/dl (70-99)
[2024-09-12] MEDS: NOVOLOG FLEXPEN-LOW RESISTANCE 1 UNITS SC ×2 (14:13→18:31)
[2024-09-12] MEDS: MAGNESIUM OXIDE 250 MG PO (17:04)
[2024-09-12] MEDS: TYLENOL 500 MG PO ×2 (17:04→23:27)
[2024-09-12] MEDS: LIPITOR 40 MG PO (17:05)
[2024-09-12] MEDS: VITAMIN D3 (cholecalciferol) 25 MCG PO (17:05)
[2024-09-12] MEDS: XARELTO 15 MG PO (17:05)
[2024-09-12] MEDS: ARICEPT 10 MG PO (17:05)
[2024-09-12 17:22] LABS: Glucose - Point of Care 159 mg/dl (70-99)
[2024-09-12 21:27] LABS: Glucose - Point of Care 133 mg/dl (70-99)
[2024-09-12] MEDS: ENTRESTO 24 MG/26 MG 1 TAB PO (23:25)
[2024-09-12] MEDS: REMERON 22.5 MG PO (23:31)
[2024-09-13] VITALS (8 sets, daily range): BP systolic 131–185; BP diastolic 65–94; PULSE 82–99; O2SAT 97; BMI 24.9
[2024-09-13] MEDS: SYNTHROID 88 MCG PO (05:29)
[2024-09-13 09:18] LABS: Glucose - Point of Care 102 mg/dl (70-99)
[2024-09-13] MEDS: LASIX 20 MG PO (09:18)
[2024-09-13] MEDS: PROTONIX 40 MG PO (09:19)
[2024-09-13] MEDS: ABILIFY 2 MG PO (09:19)
[2024-09-13] MEDS: OCUVITE SOFTGEL 1 CAP PO (09:19)
[2024-09-13] MEDS: TYLENOL 500 MG PO ×3 (09:19→21:08)
[2024-09-13] MEDS: ENTRESTO 24 MG/26 MG 1 TAB PO ×2 (09:19→20:59)
[2024-09-13] MEDS: JANUVIA 50 MG PO (09:19)
[2024-09-13] MEDS: VITAMIN B-12 1000 MCG PO (09:20)
[2024-09-13] MEDS: DESENEX/MITRAZOL/ZEASORB 1 APPLIC TOPICAL ×2 (09:20→21:01)
[2024-09-13] MEDS: TOPROL XL 50 MG PO (09:20)
[2024-09-13] MEDS: NOVOLOG FLEXPEN-LOW RESISTANCE SC ×2 (09:21→17:59)
[2024-09-13] MEDS: APRESOLINE 5 MG PO (09:38)
--- NOTE | 2024-09-13 11:31 | W.PN.HOSP.TC ---
Addendum entered and electronically signed by Collette Hancock MD 09/13/24 15:09:
Patient has congestive heart failure with preserved ejection fraction by echocardiogram and without exacerbation
Original Note:
Today's Communication/Plan
-
to SNF
no treatment for COVID
Assessment / Plan
Assessment / Plan
pt is an 84 year old female
presumed acute stroke--with Left-sided weakness/confusion--CTA head/neck with Mild multifocal stenosis of the left M1. Left M2 proximal focal occlusion with reconstitution--MRI not done but likely will not change lead per neuro--cont
Xarelto/statin
Acute viral illness--COVID positive--not hypoxic, not febrile--no treatment-- CXR: No evidence of pneumonia. Mild cardiomegaly, which has developed since the prior examination. No congestive heart failure--- negative procalcitonin, normal WBC, dc
Rocephin/Doxy.
CKD3b (WOLFGANG has been ruled out)
Failure to thrive due to advancing Alzheimer's dementia: cont donepezil/aripiprazole/mirtazapine
Chronic HF (presumed HFrEF): cont Imdur/Lasix/Entresto. Restart home BB (should not have been held). Echo pending.
Permanent atrial fibrillation: cont Dig/Xarelto. Restarted home BB.
Essential hypertension: Restarted BB, Lasix, Resume Entresto--uncontrolled at times, add PRN hydralazine
Hypercholesterolemia: cont statin
DM2: SSI/accuchecks, cont Januvia
Hypothyroidism: Cont Levoxyl
GERD: Cont PPI
code status--DNR
Anticipated Discharge: Today
Subjective/Interval History
-
Date of Service: September 13, 2024
pt having lunch--fed by PCT
Objective Data
-
Vital Signs:
max temp for 24 hours
09/13/24
09:00
Temp 98.1 F
Vital Signs
Temp Pulse Resp BP Pulse Ox
98.1 F 85 20 185/94 97
09/13/24 09:00 09/13/24 09:00 09/13/24 09:00 09/13/24 09:38 09/13/24 09:00
I&O
09/12/24 09/13/24 09/14/24
06:59 06:59 06:59
Intake Total 260 / 260 480 / 480
Balance 260 / 260 480 / 480
Review of Systems
-
Unable to obtain full review of systems at this time due to: Dementia
Physical Exam
-
General: Well Developed, Well Nourished and No Apparent Distress
HEENT: Normocephalic and Atraumatic
Respiratory: Clear to Auscultation; Negative Wheezes or Rhonchi
Cardiac: Irregular Rhythm; Negative Murmur
GI: Soft, Nontender, Nondistended and Normal Bowel Sounds
Musculoskeletal: No Clubbing, No Cyanosis and No Edema
Skin: Warm
Neuro: Awake
Psych: Calm
[2024-09-13 12:27] LABS: Glucose - Point of Care 152 mg/dl (70-99)
--- NOTE | 2024-09-13 13:43 | W.DCSUMMARY ---
Addendum entered and electronically signed by Karina Ventura MD 09/15/24 13:53:
Unclear why discharge did not happen on September 14, 2024.
Discussed with manager case, patient is going to SNF today on 09/15/2024.
Hydralazine that was added this admission was changed to 10 mg 3 times daily for better blood pressure control
Addendum entered and electronically signed by Collette Hancock MD 09/14/24 14:24:
Patient did not leave as anticipated on September 13, 2024. Actual date of discharge is September 14, 2024.
Original Note:
Discharge Summary
Discharge Data
Date of Admission: 09/10/24
Date of Discharge: 09/13/24
-
Pending Results: No
Hospital Course
Primary care physician : Abbie Newsome
Principal Discharge diagnosis : Presumed acute stroke, acute viral illness COVID-positive
Chronic Discharge diagnosis : Chronic kidney disease stage IIIb, failure to thrive due to advancing Alzheimer's dementia, chronic heart failure with preserved ejection fraction without exacerbation, permanent atrial fibrillation, essential
hypertension, hyperlipidemia, type 2 diabetes mellitus, hypothyroidism, gastroesophageal reflux disease
Hospital Course : Patient was an 84-year-old female who presented with change in mental status and left-sided weakness. Prehospital stroke alert was called and the patient was seen by neurology. CAT scan of her head was negative. CAT scan of the
head and neck showed multi focal stenosis of left M1 with left M2 proximal focal acute occlusion. Patient was admitted.
Problem #1: Presumed acute stroke. Given the patient's left-sided weakness and confusion along with CTA head and neck which showed mild multifocal stenosis of the left M1 and left M2 with proximal focal occlusion MRI was not done as it would not
electronic data interchange specialist. Patient was seen in consultation by neurology. Her Xarelto and statin medications were continued. Patient was also seen in consultation by PT/OT/speech. Fasting lipid showed total cholesterol 95, LDL of 45 vitamin B12 at 992,
folate within normal limits and TSH within normal limits. Echocardiogram was also done with preserved ejection fraction of 50 to 55%. Rest of echo as below.
Problem #2: Acute viral illness COVID positive. Patient appeared to have an acute viral illness. Chest x-ray was done which showed no evidence of pneumonia. The patient was not hypoxic nor febrile. She was started on broad-spectrum antibiotics
with Rocephin and doxycycline but developed a negative procalcitonin and had a normal white blood cell count. COVID was checked and is positive. There were no COVID-specific treatments being provided.
Problem #3: All other medical issues. These include Chronic kidney disease stage IIIb, failure to thrive due to advancing Alzheimer's dementia, chronic heart failure with preserved ejection fraction without exacerbation, permanent atrial
fibrillation, essential hypertension, hyperlipidemia, type 2 diabetes mellitus, hypothyroidism, gastroesophageal reflux disease. These medical issues were stable during her hospitalization. Medications were continued as able.
She was seen in consultation by PT/OT/speech. Recommendations are for retirement facility rather than returning to her assisted living facility. Patient is stable for discharge there at this time. If there are any questions regarding this
dictation or her hospital stay, please not hesitate to call. Our office number is [phone].
Time for discharge 35 minutes.
Important imaging findings :
HEAD AND NECK CTA IMPRESSION:
Calcified plaque formation involving bilateral cervical carotid and internal carotid arteries, as well as bilateral cavernous internal carotid arteries.
Luminal diameter reduction of 50-60% involving the proximal right ICA, with less than 50% luminal diameter reduction involving the proximal left ICA.
Calcified plaque within the distal ICA, bilaterally, with less than 50% luminal diameter reduction involving the distal right ICA, and 50% luminal diameter reduction of the distal left ICA.
Mild multifocal stenosis of the left M1. Left M2 proximal focal occlusion with reconstitution.
On the right, mild multifocal stenosis of the M1 and M2 without discrete occlusion.
Incidental note is made of partially visualized pneumonia in the superior segment of the right lower lobe. This was not specifically mentioned in the report by [facility]. Results sent by [place] text to Dr. Mijares at 8:56 AM on 09/10/[address] SCAN IMPRESSION:
No acute intracranial abnormality noted.
ECHO CONCLUSIONS:
Normal left ventricular size, wall thickness and systolic function .
LV ejection fraction is 50-55% by visual assessment.
Severe hypokinesis of the base to mid inferoseptum.
Mild concentric left ventricular hypertrophy.
Diastolic function indeterminate.
Normal right ventricular systolic function.
Moderate mitral stenosis.
Peak/mean gradients are 13/9mmHg.
Mild mitral regurgitation.
Thickened aortic valve with restricted leaflet motion.
Mild tricuspid regurgitation.
Assuming a right atrial pressure of 8 mmHg.
Estimated pulmonary artery pressure of 30-35 mmHg.
Normal pericardium without effusion.
The IVC is of normal size but does not demonstrate normal respiratory
variation.
No prior available echo for review.
Discharge Plan
-
Patient Disposition: Care Home/SNF
Discharge Diagnosis/Procedures: Presumed acute stroke with left M2 proximal focal occlusion, acute COVID positivity, chronic kidney disease stage IIIb, failure to thrive due to advancing Alzheimer's dementia, chronic heart failure with preserved
ejection fraction without exacerbation, permanent atrial fibrillation, essential hypertension, hyperlipidemia, type 2 diabetes mellitus, hypothyroidism, gastroesophageal reflux disease
Condition: Fair
Diet: Low Sodium, Diabetic, Carb Controlled and Other diet
Additional Diets: soft and bite sized
Activity: As tolerated
Driving Restrictions: No driving
Bathing Restrictions: None
Referrals:
Abbie Newsome CRNP [Family Provider] - in less than 1 week
Prescriptions:
New
hydralazine 10 mg Tablet
5 mg PO TIDPRN PRN (Reason: sbp more than 165) Qty: 0 0RF
polyethylene glycol 3350 17 gram Powder In Packet
17 g PO DAILYPRN PRN (Reason: constipation) Qty: 0 0RF
donepezil 10 mg Tablet
10 mg PO QPM Qty: 0 0RF
pantoprazole 40 mg Tablet,Delayed Release (Dr/Ec)
40 mg PO DAILY Qty: 0 0RF
magnesium oxide 500 mg magnesium Tablet
250 mg PO QPM Qty: 0 0RF
digoxin 125 mcg (0.125 mg) Tablet
125 mcg PO Q48H Qty: 0 0RF
Januvia 50 mg Tablet
50 mg PO DAILY Qty: 0 0RF
Continued
atorvastatin 40 mg tablet
40 mg PO QPM
isosorbide mononitrate 30 mg tablet extended release 24 hr
30 mg PO DAILY
cyanocobalamin (vitamin B-12) 1,000 mcg Tablet
1,000 mcg PO DAILY
acetaminophen 650 mg tablet extended release
650 mg PO Q6H PRN (Reason: FEVER)
levothyroxine 88 mcg tablet
88 mcg PO MOTUWETHFR
levothyroxine 88 mcg tablet
176 mcg PO SUSA
furosemide 20 mg tablet
20 mg PO DAILY
mirtazapine 15 mg tablet
22.5 mg PO HS
nystatin [Nystop] 100,000 unit/gram powder
1 applic TOPICAL Q6HPRN PRN (Reason: ABD FOLDS/BREASTS)
Rx Instructions:
apply to abd folds/breasts
nystatin [Nystop] 100,000 unit/gram powder
1 applic TOPICAL BID
Rx Instructions:
apply to abd folds/breasts
aripiprazole 2 mg tablet
2 mg PO DAILY
PreserVision AREDS 4,296 mcg-226 mg-90 mg capsule
1 cap PO DAILY
Xarelto 15 mg tablet
15 mg PO QPM
Entresto 24-26 mg tablet
1 tab PO Q12H
cholecalciferol (vitamin D3) [Vitamin D3] 25 mcg (1,000 unit) Tablet
25 mcg PO QPM
famotidine 20 mg Tablet
20 mg PO DAILY
lorazepam [Ativan] 0.5 mg Tablet
0.5 mg PO Q6 PRN (Reason: AGITATION)
metoprolol succinate 50 mg Tablet Extended Release 24 Hr
50 mg PO DAILY Qty: 0 0RF
Discontinued
digoxin 125 mcg (0.125 mg) tablet
62.5 mcg PO .MTWTHFR
acetaminophen [Tylenol] 325 mg Tablet
650 mg PO Q4HPRN PRN (Reason: MILD PAIN)
amoxicillin 500 mg Capsule
500 mg PO Q8H Qty: 14 0RF
Rx Instructions:
med to [facility] 5/4 in evening
Discharge Orders:
Discharge Patient (As Directed); Ordered 09/13/24
Ordered By: Collette Hancock
Discharge Date and Time
Print Language: BENGALI
[2024-09-13] MEDS: NOVOLOG FLEXPEN-LOW RESISTANCE 1 UNITS SC (13:53)
--- NOTE | 2024-09-13 15:54 | CM ---
Collette Amaya lives at [facility]; referral sent for consideration of admission to [facility]. Michelle, admissions, anticipates she can be admitted to the SNF tomorrow.
Fax of clinical information, face sheet, IP order (requested by Michelle). [facility] authorization initiated; pending reference # [id number]; provided by Dennise.
Clinical information sent to [facility] for approval. [phone]
Plan: CM to follow up in AM to coordinate transfer to [facility].
Report: [phone]
[2024-09-13 17:26] LABS: Glucose - Point of Care 147 mg/dl (70-99)
[2024-09-13] MEDS: MAGNESIUM OXIDE 250 MG PO (17:59)
[2024-09-13] MEDS: LIPITOR 40 MG PO (18:00)
[2024-09-13] MEDS: ARICEPT 10 MG PO (18:00)
[2024-09-13] MEDS: VITAMIN D3 (cholecalciferol) 25 MCG PO (18:01)
[2024-09-13] MEDS: XARELTO 15 MG PO (18:01)
[2024-09-13 21:06] LABS: Glucose - Point of Care 119 mg/dl (70-99)
[2024-09-13] MEDS: REMERON 22.5 MG PO (21:11)
[2024-09-14] MEDS: SYNTHROID 88 MCG PO (05:59)
[2024-09-14 07:43] LABS: Glucose - Point of Care 101 mg/dl (70-99)
[2024-09-14 08:00] VITALS: BP 183/82
[2024-09-14 08:10] VITALS: BP 177/83
[2024-09-14] MEDS: NOVOLOG FLEXPEN-LOW RESISTANCE SC ×2 (08:37→12:27)
[2024-09-14] MEDS: LASIX 20 MG PO (08:43)
[2024-09-14] MEDS: PROTONIX 40 MG PO (08:43)
[2024-09-14] MEDS: VITAMIN B-12 1000 MCG PO (08:43)
[2024-09-14] MEDS: TYLENOL 500 MG PO ×3 (08:43→21:17)
[2024-09-14] MEDS: TOPROL XL 50 MG PO (08:43)
[2024-09-14] MEDS: ENTRESTO 24 MG/26 MG 1 TAB PO ×2 (08:43→21:17)
[2024-09-14] MEDS: JANUVIA 50 MG PO (08:43)
[2024-09-14] MEDS: OCUVITE SOFTGEL 1 CAP PO (08:43)
[2024-09-14] MEDS: ABILIFY 2 MG PO (08:45)
[2024-09-14] MEDS: DESENEX/MITRAZOL/ZEASORB 1 APPLIC TOPICAL ×2 (08:50→21:23)
--- NOTE | 2024-09-14 11:24 | W.PN.HOSP.TC ---
Today's Communication/Plan
-
d/c to SNF
Assessment / Plan
Assessment / Plan
pt is an 84 year old female
presumed acute stroke--with Left-sided weakness/confusion--CTA head/neck with Mild multifocal stenosis of the left M1. Left M2 proximal focal occlusion with reconstitution--MRI not done but likely will not chemical cell changer per neuro--cont
Xarelto/statin
Acute viral illness--COVID positive--not hypoxic, not febrile--no treatment-- CXR: No evidence of pneumonia. Mild cardiomegaly, which has developed since the prior examination. No congestive heart failure--- negative procalcitonin, normal WBC, dc
Rocephin/Doxy.
CKD3b (WOLFGANG has been ruled out)
Failure to thrive due to advancing Alzheimer's dementia--- cont donepezil/aripiprazole/mirtazapine
Chronic HF (presumed HFrEF): cont Imdur/Lasix/Entresto. Restart home BB (should not have been held). Echo pending.
Permanent atrial fibrillation: cont Dig/Xarelto. Restarted home BB.
Essential hypertension: Restarted BB, Lasix, Resume Entresto--uncontrolled at times, add PRN hydralazine
Hypercholesterolemia: cont statin
DM2: SSI/accuchecks, cont Januvia
Hypothyroidism: Cont Levoxyl
GERD: Cont PPI
code status--DNR
OK for d/c to SNF--was medically clear on 09/13/24 and remains so--spoke with lola Hinds
Anticipated Discharge: Today
Subjective/Interval History
-
Date of Service: September 14, 2024
pt with dementia--no c/o
did not leave as planned due to insurance auth not obtained
Objective Data
-
Vital Signs:
max temp for 24 hours
09/13/24
19:00
Temp 97.8 F
Vital Signs
Temp Pulse Resp BP Pulse Ox
98 F 75 16 177/83 99
09/14/24 08:00 09/14/24 08:00 09/14/24 08:00 09/14/24 08:10 09/14/24 08:00
I&O
09/13/24 09/14/24 09/15/24
06:59 06:59 06:59
Intake Total 480 / 480 350 / 350
Balance 480 / 480 350 / 350
Review of Systems
-
All other systems: Reviewed and negative
Physical Exam
-
General: Well Developed, Well Nourished and No Apparent Distress
HEENT: Normocephalic and Atraumatic; Negative Oxygen
Respiratory: Clear to Auscultation; Negative Wheezes or Rhonchi
Cardiac: Irregular Rhythm
GI: Soft, Nontender, Nondistended and Normal Bowel Sounds
Musculoskeletal: No Clubbing, No Cyanosis and No Edema
Neuro: Awake and Alert
Psych: Calm
[2024-09-14 12:26] LABS: Glucose - Point of Care 137 mg/dl (70-99)
[2024-09-14] MEDS: LANOXIN 125 MCG PO (12:27)
[2024-09-14 15:15] VITALS: BP 160/91
[2024-09-14] MEDS: XARELTO 15 MG PO (17:15)
[2024-09-14] MEDS: LIPITOR 40 MG PO (17:15)
[2024-09-14] MEDS: ARICEPT 10 MG PO (17:15)
[2024-09-14] MEDS: MAGNESIUM OXIDE 250 MG PO (17:15)
[2024-09-14] MEDS: VITAMIN D3 (cholecalciferol) 25 MCG PO (17:15)
[2024-09-14 17:16] LABS: Glucose - Point of Care 168 mg/dl (70-99)
[2024-09-14] MEDS: NOVOLOG FLEXPEN-LOW RESISTANCE 1 UNITS SC (17:24)
[2024-09-14 21:07] LABS: Glucose - Point of Care 147 mg/dl (70-99)
[2024-09-14] MEDS: REMERON 22.5 MG PO (21:20)
[2024-09-14 23:24] VITALS: BP 152/76
[2024-09-15] MEDS: SYNTHROID 88 MCG PO (05:34)
[2024-09-15 07:05] VITALS: BP 175/89
[2024-09-15 08:17] LABS: Glucose - Point of Care 103 mg/dl (70-99)
[2024-09-15] MEDS: ENTRESTO 24 MG/26 MG 1 TAB PO (08:46)
[2024-09-15] MEDS: PROTONIX 40 MG PO (08:47)
[2024-09-15] MEDS: TYLENOL 500 MG PO (08:47)
[2024-09-15] MEDS: JANUVIA 50 MG PO (08:47)
[2024-09-15] MEDS: TOPROL XL 50 MG PO (08:47)
[2024-09-15] MEDS: ABILIFY 2 MG PO (08:47)
[2024-09-15] MEDS: VITAMIN B-12 1000 MCG PO (08:47)
[2024-09-15] MEDS: OCUVITE SOFTGEL 1 CAP PO (08:47)
[2024-09-15] MEDS: LASIX 20 MG PO (08:47)
[2024-09-15] MEDS: NOVOLOG FLEXPEN-LOW RESISTANCE SC (08:48)
[2024-09-15] MEDS: DESENEX/MITRAZOL/ZEASORB 1 APPLIC TOPICAL (08:48)
--- NOTE | 2024-09-15 10:42 | W.PN.HOSP.TC ---
Today's Communication/Plan
-
It appears that the patient has been discharged to SNF.
Unclear why this patient remained in the hospital.
CM to facilitate dispo plan
Assessment / Plan
Assessment / Plan
A/P:
# presumed acute stroke with Left-sided weakness/confusion
CTA head/neck with Mild multifocal stenosis of the left M1. Left M2 proximal focal occlusion with reconstitution
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
cont Xarelto/statin
# Acute viral illness 2/2 COVID infection
not hypoxic, not febrile
no treatment
CXR: No evidence of pneumonia. Mild cardiomegaly, which has developed since the prior examination. No congestive heart failure
negative procalcitonin, normal WBC, dc Rocephin/Doxy.
# CKD3b (WOLFGANG has been ruled out)
# Failure to thrive due to advancing Alzheimer's dementia
cont donepezil/aripiprazole/mirtazapine
# Chronic HF (presumed HFrEF): cont Imdur/Lasix/Entresto. Restarted home BB
# Permanent atrial fibrillation: cont Dig/Xarelto. Restarted home BB.
# Essential hypertension: Restarted BB, Lasix, Resume Entresto
uncontrolled at times, added PRN hydralazine
# Hypercholesterolemia: cont statin
# DM2: SSI/accuchecks, cont Januvia
# Hypothyroidism: Cont Levoxyl
# GERD: Cont PPI
code status: DNR
dispo: SNF
Anticipated Discharge: Today
Subjective/Interval History
-
Date of Service: September 15, 2024
Objective Data
-
Vital Signs:
Vital Signs
Temp Pulse Resp BP Pulse Ox
36.7 C 77 17 175/89 98
09/15/24 07:05 09/15/24 07:05 09/15/24 07:05 09/15/24 07:05 09/15/24 07:05
I&O
09/14/24 09/15/24 09/16/24
06:59 06:59 06:59
Intake Total 350 / 350
Balance 350 / 350
Review of Systems
-
Unable to obtain full review of systems at this time due to: Dementia
Physical Exam
-
General: Well Developed, Well Nourished, No Apparent Distress, Comfortable and Appears Chronically Ill
HEENT: Normocephalic and Atraumatic; Negative Oxygen
Respiratory: Non Labored Respirations; Negative Accessory Resp Muscle Use
Cardiac: S1/S2
GI: Soft, Nontender, Nondistended and Normal Bowel Sounds
Musculoskeletal: No Clubbing, No Cyanosis and No Edema
Neuro: Awake
Psych: Calm and Apparent Dementia
[2024-09-15 11:15] VITALS: BMI 23.3
[2024-09-15 11:23] VITALS: BP 124/82; PULSE 88; O2SAT 98
[2024-09-15 12:06] LABS: Glucose - Point of Care 155 mg/dl (70-99)
[2024-09-15] MEDS: NOVOLOG FLEXPEN-LOW RESISTANCE 1 UNITS SC (12:48)
[2024-09-15 15:05] VITALS: BP 170/84
--- NOTE | 2024-09-15 16:27 | CM ---
Pt cleared for discharge to [facility] today; bed available for admission there. Authorization requested from [facility]; [facility] authorization initiated; pending reference # [id number]. Per Michelle, admissions for [place]
[facility], pt can be sent with pending authorization.
Ambulance transport requested.
Report: [phone]
== END 2024-09-15 16:20 | DRG 64 ==
LOC: 3 WEST ACU 09:11
PROVIDERS: Internal Medicine; ADMITTING PHYSICIAN General Practice; ATTENDING PHYSICIAN Internal Medicine; CONSULT PHYSICIAN Psychiatry & Neurology Neurology; EMERGENCY PHYSICIAN Emergency Medicine; FAMILY PHYSICIAN Nurse Practitioner Adult Health
DX: I63.512 Cerebral infarction due to unspecified occlusion or stenosis of left middle cerebral artery (principal); U07.1 COVID-19; F02.C3 Dementia in other diseases classified elsewhere, severe, with mood disturbance; I48.21 Permanent atrial fibrillation; R41.4 Neurologic neglect syndrome; I13.0 Hypertensive heart and chronic kidney disease with heart failure and stage 1 through stage 4 chronic kidney disease, or unspecified chronic kidney disease; I50.32 Chronic diastolic (congestive) heart failure; N18.32 Chronic kidney disease, stage 3b; R62.7 Adult failure to thrive; G30.9 Alzheimer's disease, unspecified; F32.A Depression, unspecified; E78.00 Pure hypercholesterolemia, unspecified; E03.9 Hypothyroidism, unspecified; K21.9 Gastro-esophageal reflux disease without esophagitis; Z90.710 Acquired absence of both cervix and uterus; Z95.1 Presence of aortocoronary bypass graft; Z87.891 Personal history of nicotine dependence; Z79.84 Long term (current) use of oral hypoglycemic drugs; Z79.01 Long term (current) use of anticoagulants; Z66 Do not resuscitate; Z79.890 Hormone replacement therapy; Z79.899 Other long term (current) drug therapy; E11.22 Type 2 diabetes mellitus with diabetic chronic kidney disease; I25.10 Atherosclerotic heart disease of native coronary artery without angina pectoris; L89.312 Pressure ulcer of right buttock, stage 2
CPT/HCPCS: 51701; 70450; 70496; 70498; 71046; 80048; 80053; 80061; 80162; 81003; 81015; 82607; 82746; 82962; 83036; 83880; 84145; 84443; 84484; 85025; 85027; 85652; 87040; 87811; 92523; 92526; 92610; 93005; 93306; 97116; 97163; 97167; 97530; 97535; 99291; Q9967